=== PATIENT | female | born 1945 | race Caucasian/White ===

== ENCOUNTER → 2016-12-30 | Outpatient (CLI) | payer OTHER ==
[~2016-12-30] MED LIST: ASPI325T45 PO; ATOR10TA88 PO; CALC-20 PO; CITA10TA4 PO; HMLI SC; INSDGI SC; LIRA18IN SQ; MOXI1TAB7 PO; OMEP20TA PO; OXYC7.5T78 PO; PEDICHW50 PO
[2016-12-30 17:46] LABS: MANUAL MICROSCOPIC REQUIRED? NO; REVIEW REQ? NO; URINE APPEARANCE CLOUDY (CLEAR); URINE BILIRUBIN NEG (NEG); URINE COLOR YELLOW; URINE NITRITE POS (NEG); URINE SPECIFIC GRAVITY 1.011 (1.000-1.030); UROBILINOGEN NEG (NEG)
[2016-12-31 06:37] LABS: ESTIMATED AVERAGE GLUCOSE 157 mg/dl; HA1C FLAG Normal (Normal)
--- NOTE | 2017-01-07 11:01 | CODING QUERY MEDICAL NECESSITY ---
SUPPORTING DIAGNOSIS NEEDED Dr. Ceja, A supporting diagnosis is required for the test/procedure performed on this patient in order for us to be reimbursed by the patient's insurance. Please provide a supporting diagnosis for the following test/procedure listed below next to the test name along with your signature. *If there is no additional diagnosis for this patient that would support the following test/procedure please document that below next to the test/procedure. Test(s)/Procedure(s) that require a supporting diagnosis: * ([id number]) B12 VITAMIN LEVEL DIAGNOSIS: DATE OF SERVICE: 12/30/16 Provider Signature: Date: Thank you Jon Pugh [facility] Information Management Once completed, please kindly fax back to [phone] For questions please call [phone]
== END | disposition home or self-care (01) ==
LOC: C.LABBFT 12:15
PROVIDERS: ATTEND Internal Medicine
DX: R39.9 Unspecified symptoms and signs involving the genitourinary system (principal); E11.9 Type 2 diabetes mellitus without complications; M81.0 Age-related osteoporosis without current pathological fracture; Z98.890 Other specified postprocedural states

== ENCOUNTER → 2017-07-13 | Outpatient (CLI) | payer BC ==
[~2017-07-13] MED LIST changes: +ATOR10TA82 PO; -ATOR10TA88 PO
[2017-07-13 12:24] LABS: BASO % 0.2 %; BASO ABS # 0.02 K/uL (0-0.2); EOS % 0.9 %; EOS ABS # 0.09 K/uL (0-0.5); HEMATOCRIT 36.4 % (37-47); HEMOGLOBIN 11.5 g/dL (12.0-16.0); IG# 0.03 K/uL (0.00-0.02); LYMPH % 17.6 %; LYMPH ABS # 1.77 K/uL (1.2-3.4); MEAN CELL VOLUME 81.4 fL (80-100); MEAN CORPUSCULAR HEMOGLOBIN 25.7 pg (25-34); MEAN CORPUSCULAR HGB CONC 31.6 g/dl (32-36); MEAN PLATELET VOLUME 9.5 fL (7.4-10.4); MONO % 6.6 %; MONO ABS # 0.66 K/uL (0.11-0.59); NEUT % 74.4 %; NEUT ABS # 7.46 K/uL (1.4-6.5); PLATELET COUNT 375 K/uL (130-400); RED CELL DISTRIBUTION WIDTH CV 16.2 % (11.5-14.5); RED CELL DISTRIBUTION WIDTH SD 48.5 fL (36.4-46.3); WHITE BLOOD COUNT 10.03 K/uL (4.8-10.8)
[2017-07-13 13:00] LABS: BLOOD UREA NITROGEN 13 mg/dl (7-18); CREATININE 0.52 mg/dl (0.60-1.20); GLUCOSE 83 mg/dl (70-99)
[2017-07-13 13:01] LABS: ALBUMIN 3.6 gm/dl (3.4-5.0); ALKALINE PHOSPHATASE 63 U/L (45-117); AST/SGOT 18 U/L (15-37); CARBON DIOXIDE 28 mmol/L (21-32); SODIUM 138 mmol/L (136-145); TOTAL PROTEIN 7.1 gm/dl (6.4-8.2)
[2017-07-13 13:03] LABS: ALT/SGPT 23 U/L (12-78); CHOLESTEROL 144 mg/dl (0-200); LDL CHOLESTEROL CALCULATED 69 mg/dl
[2017-07-13 13:06] LABS: CALCIUM 8.9 mg/dl (8.5-10.1)
[2017-07-13 13:22] LABS: HEMOGLOBIN A1C 7.2 % (4.5-5.6)
[2017-07-13 14:21] LABS: CREATININE RANDOM URINE 91.9 mg/dl
== END | disposition home or self-care (01) ==
LOC: C.LABBFT 10:39
PROVIDERS: ATTEND Internal Medicine
DX: E11.9 Type 2 diabetes mellitus without complications (principal); R39.9 Unspecified symptoms and signs involving the genitourinary system; E78.5 Hyperlipidemia, unspecified

== ENCOUNTER 2020-05-14 06:58 | Inpatient (IN) ==
--- NOTE | 2020-05-14 07:50 | History & Physical Bridge Note ---
Date of Service May 14, 2020 History & Physical Bridge Note I have examined the patient, reviewed the History & Physical and in the interval since the performance of the History & Physical I have noted the following changes of clinical significance: no changes noted
--- NOTE | 2020-05-14 07:51 | Pre Anesthesia Assessment ---
Date of Service May 14, 2020 Pre Sedation Assessment Vital Signs Temp Pulse Resp BP Pulse Ox 05/14/20 07:15 36.7 C 60 20 140/68 98 Cardiovascular + regular rate Respiratory + respiratory effort normal Pre-Sedation Airway Assessment Smoking Status: Never smoker Hx Sleep Apnea: No Hx Difficult Intubation: No Short, Thick Neck: No Thyromental Distance: > or= 3.5 Finger Breadths Oral Cavity: + Dentures Mallampati Class: II ASA: ASA3 NPO Status Date of Last Intake of Fluids: 05/13/20 Time of Last Intake of Fluids: 20:00 Date of Last Intake of Solid Food: 05/13/20 Time of Last Intake of Solid Foods: 18:30 Procedure Planning Contraindications for Sedation: none Current Medications Reviewed: Yes Notes The planned sedation has been discussed with the patient. Informed Consent was obtained. I have identified the patient, determined the appropriateness of sedation and have assessed the patient immediately prior to the procedure. All medicine(s) and interventions are by my order.
[2020-05-14] MEDS ORDERED: HEPARIN (PORCINE) 1000 UNIT/ML 10 ML (CATH LAB USE ONLY) ONE (07:57)
[2020-05-14] MEDS ORDERED: niCARdipine HCL INJ 2.5 MG/ML 10 ML AMP ONE (07:57)
[2020-05-14] MEDS ORDERED: NITROGLYCERIN/D5W 100MCG/ML 20ML SYR ONE (07:58)
[2020-05-14] MEDS ORDERED: fentaNYL citrate 100 MCG/2 ML VIAL ONE (07:58)
[2020-05-14] MEDS ORDERED: MIDAZOLAM HCL 1 MG/ML 2ML VIAL ONE (07:58)
[2020-05-14] MEDS ORDERED: NITROGLYCERIN SL 0.4 MG/TAB TAB SL PRN (08:58)
[2020-05-14] MEDS ORDERED: ACETAMINOPHEN 325 MG TAB PO PRN (08:58)
[2020-05-14] MEDS ORDERED: SODIUM CHLORIDE 0.9% 1000ML 1,000 ML IV SCH (09:00)
--- NOTE | 2020-05-14 09:03 | Post Anesthesia Assessment ---
Date of Service May 14, 2020 Post Sedation Assessment Vital Signs Temp Pulse Resp BP Pulse Ox 05/14/20 07:15 36.7 C 60 20 140/68 98 Recovery Score Activity: Moves 4 extremities Respiration: Deep Breath/Cough Circulation: +/-20% PreAnes Value Consciousness: Fully Awake Oxygen Saturation: > 92% On Room Air Discharge Sedation Level of Care: Fast Track Phase II Post Sedation Plan On clinical assessment, the patient appears to have tolerated the sedation without complications. Patient is recovering as anticipated. Patient will continue to be monitored by nursing and may be discharged when sedation discharge criteria are met per below protocol. Upon Completions of procedure up to 15 minutes continue every 5 minute vital signs and the P.A.R. score; then discharge to a Phase I or Fast Track to Phase II per the following guidelines: * Discharge Patient to appropriate Phase II area if PAR is 8 or greater or return to pre- procedure baseline. The post - procedure orders will be as directed. * If PAR score is less than 8 or not return to pre-procedure baseline then patient will follow Phase I monitoring till PAR is reached for Phase II. The Phase I may be done in procedure room or may call to secure a Phase I area. * If naloxone or flumazenil are used for reversal, hold in Phase I for continued monitoring from when last reversal dose was given for a minimum of 60 minutes or longer pending the nurse and/or physician discretion of patient condition before discharge to Phase II. Please call the Sedation Physician to re-evaluate and complete post-note for discharge to Phase II area. Do NOT discharge from procedure sedation or Phase 1 until post- sedation evaluation note is complete by procedure /sedation MD Sedation Discharge Instructions to be given to the patient at discharge to home.
--- NOTE | 2020-05-14 09:03 | Cardiac Catheterization ---
[facility] Data: Heart Nurse Cardiac Status Clinical evaluation leading to the procedure CAD Presenation: Positive Stress Test Diagnostic Physicians Name: Caden Guerra MD Closure Device Recommendations: CABG Cardiac Cath Procedure Full Procedure Date May 14, 2020 Pre-Procedure Diagnosis Pre-Procedure Diagnosis: Positive Stress Test AUC Score AUC Score: 8 Post-Procedure Diagnosis Post-Procedure Diagnosis: Severe CAD Procedure(s) Performed Procedure(s) Performed: Coronary Angiography and Left Heart Cath Senior Catering Sales Manager Caden Guerra MD Campground Manager(s) none Estimated Blood Loss Estimated Blood Loss: 7cc Medication(s) Medication(s): Fentanyl, Lidocaine 1%, Nicardipine, Nitroglycerin and Versed Summary of Findings Procedure performed: Selective coronary angiography, left heart catheterization Staff marine consultant: Caden Guerra MD Indication: The patient is a 74-year-old woman with a history of peripheral vascular disease, diabetes, hyperlipidemia and hypertension who has been experiencing symptoms of exertional dyspnea and postprandial chest neck and arm pain. She had previously undergone stress echocardiography which revealed not only poor exercise tolerance but baseline inferior wall motion abnormalities and inducible wall motion abnormalities in the anterolateral marks. Procedure in detail The patient was informed of the risk benefits and alternatives to the intended procedure. She understood and wished to proceed. She was taken to the cardiac catheterization suite in a fasting state. Conscious sedation was administered per protocol and the patient was monitored electrocardiographically throughout today's procedure. The right radial area was prepped and draped in usual sterile fashion. This area was anesthetized using subcutaneous ministration of a lidocaine solution. Right radial artery was subsequently accessed using Seldinger technique and sheath was placed over guidewire at this site. The sheath was used to felt a passage of the cardiac catheters for selective coronary angiography and left heart catheterization. Images were obtained in multiple orthogonal views prior to removal of the catheter and sheath. Hemostasis was achieved at the access site using manual pressure. The patient tolerated seizure well. There were no immediate complications. Equipment used 5 [place] 4 Findings Coronary angiography Left main: The left main was relatively short but bifurcated normally into the left anterior descending and left circumflex arteries. There was some mild distal disease, but no obstructive lesions in the left main. Left anterior descending colon left anterior descending was heavily calcified in its proximal portion. There was approximately 60 to 70% stenosis at the ostium and a discrete 70% lesion prior to the takeoff of the first diagonal branch. There are luminal irregularities throughout the remainder of the vessel Left circumflex: Left circumflex artery was a large tortuous system. It had a discrete subtotal occlusion in its proximal portion. It effectively produced one large branching OM system with a discrete 70% stenosis in its proximal portion. Right coronary artery: The right coronary artery appeared to be chronically occluded. It did fill distally from left to right collaterals and reconstituted a small PDA branch. Impression: Three-vessel obstructive coronary disease including chronic total occlusion of the right coronary artery Left dominant coronary system Filling of small PDA via left to right collaterals Normal left ventricular filling pressures No evidence of aortic stenosis Hemodynamics Rest Ao:: 81/46 mmHg Final Ao: 108/48 mmHg LV: 106/0 mmHg left ventricular end-diastolic pressure of 2mmHg Recommendations Recommendations: CABG Specimens Specimens: None Radiation Exposure (mGy) 567 Contrast (mls) 3 0 Procedural Complication(s) None Disposition Heart Nurse Holding/Recovery I attest to the content of the Intraoperative Record and any orders documented therein. Any exceptions are noted below. [facility] Card Cath Procedure Codes Cardiac Catheterization Procedure 1: Cardiovascular Cath Procedures: 84705 Coronaries and LHC (+/-LV) Moderate Sedation Procedure 1: Sedation/Anesthesia: 08397 Mod Sedation by the same physician;Init15 Min Child Age 5 & Up PG Care Time/CCT Total # of Minutes Spent Total Time Spent with Patient: Total time spent is greater than 50% in coordination of care (as documented) at patient's floor/unit and/or counseling patient:
[2020-05-14] MEDS ORDERED: Heparin IV Adult Wt-Based Standard *NO* Bolus Protocol ONE (10:36)
[2020-05-14] MEDS: PANTOprazole 40 MG TAB PO SCH ×2 (11:23→20:04)
[2020-05-14] MEDS: ASPIRIN 81 MG ECTAB PO SCH (11:23)
[2020-05-14] MEDS: ROSUVASTATIN CALCIUM 20 MG TAB PO SCH (11:23)
[2020-05-14] MEDS ORDERED: GLUCOSE 10 TABS/TUBE PO PRN (11:32)
[2020-05-14] MEDS ORDERED: DEXTROSE 50% 50 ML SYRINGE IV PRN (11:32)
[2020-05-14] MEDS ORDERED: GLUCOSE 40% GEL 15 GM TUBE PO PRN (11:32)
[2020-05-14] MEDS ORDERED: GLUCAGON FOR INJ 1 MG VIAL SQ PRN (11:32)
[2020-05-14] MEDS ORDERED: CARBOHYDRATES FOR HYPOGLYCEMIA PO PRN (11:32)
[2020-05-14] MEDS ORDERED: PHARMACY GLYCEMIC MGMT CONSULT PRN (11:37)
--- NOTE | 2020-05-14 12:07 | Pharmacy Report ---
Pharmacy Glycemic Short Note 2 - Date of Service May 14, 2020 - Glycemic Short BSG Results (Last 24 hours): 05/14/20 11:38 POC Glucose 161 H OUTPATIENT ANTIDIABETIC REGIMEN: * Lantus 15 units SQ daily (last taken on 05/13) * Victoza 1.8 mg SQ qAM * A1c= 6% (03/07/20) ASSESSMENT: * Yenny is a 74 yo well controlled T2DM female s/p psychiatric cath * Current BSG of 161 mg/dL and ordered a diet * Will continue home dose of Lantus 15 units daily and start Novolog based on weight stress ~2. Titrate doses as needed. PLAN FOR INPATIENT GLYCEMIC CONTROL: * Basal insulin * Lantus 15 units SQ daily * Bolus insulin * NovoLog per scale ACHS or Q6hrs while NPO * Goal Range: Low 110 mg/dL - High 140 mg/dL * Correction Factor: 30 mg/dL/unit * Nutritional / Prandial insulin per carb ratio of 1 unit per 15 grams CHO consumed PLAN FOR DISCHARGE: * A1c = 6% * May continue home regimen on discharge as long as patient denies frequent hypoglycemia as an outpatient.
[2020-05-14] MEDS ORDERED: INSULIN GLARGINE SOLOSTAR 100 UNITS/ML 3 ML PEN SC SCH (12:30)
[2020-05-14] MEDS: INSULIN ASPART 100 UNITS/ML 3 ML PEN SC SCH ×3 (13:25→20:06)
[2020-05-14] MEDS: HEPARIN SODIUM/DEXTROSE 25,000 UNITS/500 ML BAG IV SCH (13:47)
[2020-05-14 14:45] LABS: Partial Thromboplastin Time 27.3 Seconds (21.0-31.0)
--- NOTE | 2020-05-14 14:57 | Electrocardiogram Report ---
Test Reason : Blood Pressure : / mmHG Vent. Rate : 080 BPM Atrial Rate : 080 BPM P-R Int : 168 ms QRS Dur : 082 ms QT Int : 402 ms P-R-T Axes : 053 -15 125 degrees QTc Int : 463 ms Normal sinus rhythm Abnormal ECG When compared with ECG of 06-FEB-2013 13:19, T wave inversion now evident in Lateral leads Confirmed by Caden Guerra ([id number]) on 05/14/2020 2:56:34 PM Referred By: Odalys Ortiz Confirmed By:Jean-Pierre Guerra
--- NOTE | 2020-05-14 16:24 | Ultrasound Report ---
US carotid doppler BI CLINICAL HISTORY: 74 years-old Female with pre-op. Preoperative screening exam. COMPARISON: None TECHNIQUE: Multiple real time sonographic images of the carotid bifurcations were obtained assessing bosch scale, color Doppler and spectral wave form appearance FINDINGS: RIGHT CAROTID: The peak systolic velocity measured within the right ICA is 50 cm/sec. The end diast olic velocity measured 16 cm/sec. The ICA to CCA ratio measured 0.77 which correlates with a stenosi s of 0-50%. Mild mixed plaque of the right carotid bulb and proximal right ICA. LEFT CAROTID: The peak systolic velocity measured within the left ICA is 60 cm/sec. The end diastol ic velocity measured 23 cm/sec. The ICA to CCA ratio measured 0.63 which correlates with a stenosis o f 0-50%. Mild to moderate mixed plaque of the left carotid bulb and left ICA. There is normal antegrade vertebral flow bilaterally. IMPRESSION: 1. Atherosclerotic plaque of the carotid bulbs and internal internal carotid arteries without hemody namically significant stenosis. 2. Normal antegrade vertebral flow bilaterally. ACT 112: Negative or not required by law. The above report was generated using voice recognition software. It may contain grammatical, syntax o r spelling errors. Electronically signed by: Osmin Cain M.D. 05/14/2020 4:23 PM
[2020-05-14] MEDS ORDERED: LORazepam 0.5 MG TAB PO PRN (17:48)
[2020-05-14] MEDS ORDERED: ZOLPIDEM TARTRATE 5 MG TAB PO PRN (17:48)
[2020-05-14] MEDS ORDERED: oxyCODONE HCL IR 5 MG TAB (IMMEDIATE RELEASE) PO PRN (17:48)
[2020-05-14] MEDS ORDERED: ALUMINUM/MAGNESIUM SUSP 30 ML UDC PO PRN (17:48)
[2020-05-14 20:53] LABS: Partial Thromboplastin Ratio 2.3
[2020-05-14 20:54] LABS: Partial Thromboplastin Time 64.3 Seconds (21.0-31.0)
[2020-05-15 06:35] LABS: Partial Thromboplastin Ratio 3.4
[2020-05-15 06:47] LABS: Partial Thromboplastin Time 95.1 Seconds (21.0-31.0)
[2020-05-15] MEDS: INSULIN ASPART 100 UNITS/ML 3 ML PEN SC SCH ×4 (07:48→21:00)
[2020-05-15] MEDS ORDERED: LIRAGLUTIDE 1.8 MG SQ SCH (09:00)
[2020-05-15] MEDS ORDERED: LANTUS PER UNIT CHARGE SQ SCH (09:00)
[2020-05-15] MEDS: PANTOprazole 40 MG TAB PO SCH ×2 (09:01→20:16)
[2020-05-15] MEDS: ROSUVASTATIN CALCIUM 20 MG TAB PO SCH (09:01)
[2020-05-15] MEDS: ASPIRIN 81 MG ECTAB PO SCH (09:01)
[2020-05-15] MEDS: HEPARIN SODIUM/DEXTROSE 25,000 UNITS/500 ML BAG IV SCH (10:09)
[2020-05-15] MEDS: ONDANSETRON INJ 2 MG/ML 2 ML VIAL IV PRN ×2 (10:10→19:36)
[2020-05-15] MEDS ORDERED: INSULIN GLARGINE SOLOSTAR 100 UNITS/ML 3 ML PEN SC SCH ×2 (11:30→12:00)
--- NOTE | 2020-05-15 13:41 | Pharmacy Report ---
Pharmacy Glycemic Short Note 2 - Date of Service May 15, 2020 - Glycemic Short BSG Results (Last 24 hours): 05/14/20 05/14/20 05/15/20 16:08 19:51 07:32 POC Glucose 102 H 118 H 88 05/15/20 11:27 POC Glucose 97 OUTPATIENT ANTIDIABETIC REGIMEN: * Lantus 15 units SQ daily (last taken on 05/13) * Victoza 1.8 mg SQ qAM * A1c= 6% (03/07/20) ASSESSMENT: 05/15: * Yenny received 17 units of insulin yesterday (15 units of basal and 2 units of bolus) * BSGs below goal today * will decrease Lantus ~30% * uncertain if novolog requires adjustment as she has required minimal usage at this point 05/14: * Yenny is a 74 yo well controlled T2DM female s/p [facility] cath * Current BSG of 161 mg/dL and ordered a diet * Will continue home dose of Lantus 15 units daily and start Novolog based on weight stress ~2. Titrate doses as needed. PLAN FOR INPATIENT GLYCEMIC CONTROL: * Basal insulin * Lantus 10 units SQ daily * Bolus insulin * NovoLog per scale ACHS or Q6hrs while NPO * Goal Range: Low 110 mg/dL - High 140 mg/dL * Correction Factor: 30 mg/dL/unit * Nutritional / Prandial insulin per carb ratio of 1 unit per 15 grams CHO consumed PLAN FOR DISCHARGE: * A1c = 6% * May continue home regimen on discharge as long as patient denies frequent hypoglycemia as an outpatient.
[2020-05-15 14:53] LABS: Partial Thromboplastin Ratio 2.1
[2020-05-15 15:10] LABS: Partial Thromboplastin Time 59.8 Seconds (21.0-31.0)
--- NOTE | 2020-05-15 16:57 | Cardiology Progress Note ---
Date of Service May 15, 2020 Assessment & Plan (1) Coronary artery disease: She had an abnormal outpatient stress test it was discovered yesterday to have significant three-vessel coronary disease. She appears to be a good candidate for surgical revascularization. We are awaiting transfer to a tertiary care facility. We will continue her on her current medications which include a daily aspirin and high-dose rosuvastatin. She has not had an acute coronary syndrome and has preserved LV systolic function. We will start her on low-dose beta-blockade given the baseline regional wall motion abnormalities suggestive of old infarct (2) Diabetes mellitus with insulin therapy: Admission and Anticipated Discharge Date Admission Date: May 14, 2020 Subjective The patient feels well. She has not had any symptoms of chest discomfort. She denies breathing difficulty. She has been ambulatory around her room without symptoms. No dizziness or lightheadedness. No pain at the radial access site. Review of Systems Review of Systems: Per HPI Physical Exam Physical Exam: She is alert and oriented x3. Mood affect appear normal. She answered all questions appropriately. HEENT: Sclerae are anicteric. Pupils are equal and reactive to light and accommodation. Extraocular movements were intact. Neuro: Cranial nerves intact Neck: Examination of the submandibular region did not reveal any significant lymphadenopathy. Carotids are palpable bilaterally and free of bruits on auscultation. There was no evidence of jugular venous distention. The thyroid was not enlarged. Lungs: Lungs are clear to auscultation bilaterally. There are no rales wheezes or rhonchi. She has normal respiratory effort without use of accessory muscles. There is normal pulmonary excursion. Cardiac: The rhythm was regular. S1 and S2 were normal. There are no murmurs on examination. The PMI was not markedly displaced on palpation. Abdomen: The abdomen was soft and nontender. Extremities: Patient has bilateral radial pulses that are equal in intensity. Good perfusion of the right hand. No significant ecchymosis. There is no evidence cyanosis or clubbing. There was no evidence of significant peripheral edema bilaterally. Skin: There are no rashes noted on examination today. Results & Data ([facility]) Vital Signs (Past 12 Hours) Vital Signs Temp Pulse Pulse Resp BP BP Pulse Ox 05/15/20 15:34 36.6 C 67 19 112/71 96 05/15/20 14:49 74 05/15/20 13:08 37.4 C 94 H 20 126/73 94 05/15/20 08:14 37.0 C 66 20 123/74 99 05/15/20 07:30 62 Diagnostic Findings Carotid duplex was performed yesterday. This did not reveal any evidence of obstructive carotid artery disease. Stress echocardiogram performed 05/01/2020 revealed inducible wall motion abnormalities in the setting of baseline inferior hypokinesis. She had mild LVH and mild mitral regurgitation. Preserved overall LV function. PG Care Time/CCT Total # of Minutes Spent Total Time Spent with Patient: Total time spent is greater than 50% in coordination of care (as documented) at patient's floor/unit and/or counseling patient: Coding Level of Care Code 89032 Subseq Obs Care Lvl 2 Diagnoses Coronary artery disease I25.10 Diabetes mellitus with insulin therapy E11.9; Z79.4
[2020-05-15] MEDS: METOPROLOL TARTRATE 25 MG TAB PO SCH (20:16)
--- NOTE | 2020-05-15 22:52 | Discharge Summary ---
Date of Service May 15, 2020 Admission HPI Per Admitting Provider The patient is a 74-year-old woman with a history of diabetes mellitus, hypertension and hyperlipidemia who was initially seen in the outpatient setting for symptoms of postprandial chest discomfort and progressive exertional dyspnea. For some time the patient has had difficulty with chest, throat, jaw and arm discomfort subsequent to eating. This may have been exacerbated by activity. If she eats small amounts of fairly bland food she does not generally have symptoms. More worrisome was her symptoms of exertional dyspnea which have been progressive over the past several weeks. As a result of the symptoms the patient underwent outpatient stress testing which was abnormal. Stress echocardiography revealed baseline hypokinesis of the basal inferior wall and what appeared to be inducible anterior ischemia. The patient was subsequently referred for coronary angiography. Principal Diagnosis Severe coronary artery disease Discharge Exam She is alert and oriented x3. Mood affect appear normal. She answered all questions appropriately. HEENT: Sclerae are anicteric. Pupils are equal and reactive to light and accommodation. Extraocular movements were intact. Neuro: Cranial nerves intact Neck: Examination of the submandibular region did not reveal any significant lymphadenopathy. Carotids are palpable bilaterally and free of bruits on auscultation. There was no evidence of jugular venous distention. The thyroid was not enlarged. Lungs: Lungs are clear to auscultation bilaterally. There are no rales wheezes or rhonchi. She has normal respiratory effort without use of accessory muscles. There is normal pulmonary excursion. Cardiac: The rhythm was regular. S1 and S2 were normal. Soft holosystolic murmur. The PMI was not markedly displaced on palpation. Abdomen: The abdomen was soft and nontender. Extremities: Patient has bilateral radial pulses that are equal in intensity. Good perfusion of the right hand. There is no evidence cyanosis or clubbing. There was no evidence of significant peripheral edema bilaterally. Skin: There are no rashes noted on examination today. Discharge Data Allergies Allergy/AdvReac Type Severity Reaction Status Date / Time alendronate sodium AdvReac Intermediate SEVERE Verified 04/15/20 11:25 HEADACHE risedronate sodium AdvReac Intermediate SEVERE Verified 04/15/20 11:25 HEADACHE metformin AdvReac Mild DIARRHEA Verified 04/15/20 11:25 Procedures Performed Operation Date: 05/14/20 08:00 Actual Procedures p Cath, Left with Cors and Vent - Clem Guerra MD s Cineradiography w/Routine Exam - Clem Guerra MD Ordered Studies 05/14/20 06:32 CL Cath Imgs for PACS use only Routine 05/14/20 15:13 US carotid doppler BI Routine Hospital Course (1) Coronary artery disease: On the day of admission the patient underwent coronary angiography which revealed severe coronary artery disease. This included a chronic total occlusion of the right coronary artery which was collateralized from the left coronary system. There was a near total occlusion of the proximal left circumflex artery and severe proximal left anterior descending stenosis as well as an additional stenosis in the proximal left anterior descending coronary artery. Left ventricular end-diastolic pressures were normal. Outpatient echocardiography had revealed preserved LV systolic function with mild mitral regurgitation. Based on the severity of her coronary disease and associated risk factors she was felt to be a good candidate for surgical revascularization. Carotid duplex was performed during this admission which did not reveal obstructive disease in the carotid arteries. Total Time Total Time Spent Total Time Spent (In Minutes): 15 Total Time Includes: Examination of the Patient, Discharge Planning and Medication Reconciliation Discharge Plan Discharge Items Patient Disposition: Transfer Acute Care Hospital Reason For Visit: ANGINA Discharge Diagnosis: Angina, severe CAD Condition on Discharge: Good Activity: Per Instructions section Activity Comment: Ad conor Lifting: No more than 5 pounds Non-emergency contact: Incident Commander Call non-emergency contact if: you have any medication questions Follow-up/Referrals: Clem Ceja MD [Primary Care Provider] - Diet: Carb Consistent or DM2 Addtl Attending Provider Instructions: none Pending Studies at Discharge: No Stand-Alone Forms: My [facility] Skilled Items Patient informed of condition?: Yes DNR: No Discharge Level of Care: Other Communicable Disease: No Discharge Prognosis: Stable Lines: Peripheral IV Urinary Catheter: No Medications and DC Order Prescriptions: New nitroglycerin [Nitrostat] 0.4 mg Tablet, Sublingual 0.4 mg sublingual UD PRN (Reason: chest pain) Qty: 1 RF: 0 metoprolol tartrate 25 mg Tablet 12.5 mg PO BID Qty: 1 RF: 0 Continued pantoprazole 40 mg tablet,delayed release (DR/EC) 40 mg PO BID Qty: 60 RF: 5 Victoza 3-Ben 0.6 mg/0.1 mL (18 mg/3 mL) pen injector 1.8 mg SQ QAM Qty: 9 RF: 4 rosuvastatin 20 mg tablet 20 mg PO DAILY Qty: 30 RF: 5 aspirin 325 mg tablet 325 mg PO QAM RF: 0 Lantus U-100 Insulin 100 unit/mL solution 15 unit SQ DAILY Qty: 10 RF: 11 ondansetron HCl 4 mg tablet 4 mg PO Q8H PRN (Reason: nausea and vomiting) Qty: 90 RF: 11 Discontinued (DME) OneTouch Ultra Blue Test Strip Strip See Dose Instructions .ROUTE .MEDSUPPLY Qty: 100 RF: 5 Flintstones Complete tablet,chewable 1 tab PO QPM RF: 0 cholecalciferol (vitamin D3) 2,000 unit capsule 2,000 units PO QAM RF: 0 zoledronic [id number]-[id number] 5 mg/100 mL piggyback 1 ea IV YEARLY RF: 0 Discharge Orders: Discharge Order (Routine); Ordered 05/15/20 Ordered By: Clem Guerra Admission Data Admit Date/Time: 05/14/20 08:59 Attending Provider: Clem Guerra Admit Provider: Clem Guerra Primary Care Provider: Clem Ceja Coding Level of Care Code 28435 OBS Care - Discharge Diagnoses Coronary artery disease I25.10
[2020-05-16 06:55] LABS: Hematocrit (blood only) 40.2 % (37-47); Hemoglobin 12.8 g/dL (12.0-16.0); Mean Corpuscular Hemoglobin 29.6 pg (25-34); Mean Corpuscular Hgb Conc 31.8 g/dL (32-36); Mean Corpuscular Volume 92.8 fL (80-100); Mean Platelet Volume 10.1 fL (7.4-10.4); Platelet Count 216 K/uL (130-400); RDW Coefficient of Variation 14.9 % (11.5-14.5); RDW Standard Deviation 50.9 fL (36.4-46.3); Red Blood Count 4.33 M/uL (4.2-5.4)
[2020-05-16 07:00] VITALS: BP 131/75; TEMP 97.9; O2SAT 98
[2020-05-16 07:24] LABS: Partial Thromboplastin Ratio 2.3
[2020-05-16 07:30] LABS: BUN Creatinine Ratio 20.8 (10-20); Calcium 8.3 mg/dl (8.5-10.1); Creatinine Clr Calc Pharmacy 53.3 ml/min; Est GFR (African American) 98.9; Est GFR (Non-African American) 85.4; Potassium 4.1 mmol/L (3.5-5.1)
[2020-05-16 07:33] LABS: Partial Thromboplastin Time 63.5 Seconds (21.0-31.0)
[2020-05-16] MEDS: INSULIN ASPART 100 UNITS/ML 3 ML PEN SC SCH (08:04)
[2020-05-16] MEDS: ASPIRIN 81 MG ECTAB PO SCH (08:04)
[2020-05-16] MEDS: PANTOprazole 40 MG TAB PO SCH (08:05)
[2020-05-16] MEDS: ROSUVASTATIN CALCIUM 20 MG TAB PO SCH (08:05)
[2020-05-16] MEDS: METOPROLOL TARTRATE 25 MG TAB PO SCH (08:05)
[2020-05-16 08:50] VITALS: PULSE 65
[2020-05-16] MEDS ORDERED: INSULIN GLARGINE SOLOSTAR 100 UNITS/ML 3 ML PEN SC SCH (09:00)
== END 2020-05-16 09:32 | disposition short-term general hospital (02) | DRG 287 ==
LOC: CC 06:58 → 2S 06:58 → OBSVTOIN 08:59 → 2S 05-15 12:06

== ENCOUNTER 2024-06-14 12:03 | Inpatient (IN) ==
--- NOTE | 2024-06-14 12:52 | Emergency Department Note ---
Impression & Plan Closed intertrochanteric fracture of left femur, Fall from standing, Acute UTI (urinary tract infection) ED Provider Note HISTORY OF PRESENT ILLNESS: Patient is a 79-year-old female presenting with left hip pain after fall. Patient does not remember how she fell. She reports she remembers being upright and then the next thing she knew she was on the ground. Reports that she had immediate pain and deformity to the left hip. She denies striking her head or loss of consciousness. She is on aspirin daily. She does not remember having any chest pain, shortness of breath or lightheadedness prior to the fall. Denies any chest pain or shortness of breath currently. Denies any abdominal pain. And route to the hospital, patient was given 45 mcg IV fentanyl and 4 mg IV zofran ROS: as above PHYSICAL EXAM: Constitutional: Patient appears in no acute distress. HENT: Head: Normocephalic and atraumatic. Eyes: EOMI, PERRL Mouth/Throat: Mucous membranes moist. Neck: Trachea midline. Neck supple. Cardiovascular: RRR, No murmurs, rubs or gallops. Intact distal pulses. Pulmonary/Chest: No respiratory distress. Breath sounds clear and equal bilaterally. No wheezes or rales. No chest wall tenderness to palpation. Abdominal: Abdomen soft, no tenderness, rebound or guarding. Musculoskeletal: - LLE: No open wounds. Left leg is shortened and externally rotated as compared to the right. Sensation intact to light touch about the nerve distributions of the leg. Patient is able to wiggle toes and dorsiflex and plantarflex the ankle. No reproducible tenderness to palpation on the proximal femur. Patient does have pain with internal and external rotation of the femur. No laxity to palpation of the pelvis. Skin: Warm and dry. No rash, erythema, pallor or cyanosis Psychiatric: Appropriate mood and affect for situation. Neurological: Alert and keenly responsive. CN II-XII grossly intact MDM: - Vitals signs showed hypertension - History obtained via patient. History as above. - Chronic conditions affecting care: GERD; HTN; HLD; CAD; DM-2 - Differential diagnoses include, but are not limited to: pelvic fracture; femur fracture; femur dislocation; contusion; intracranial hemorrhage; syncope; ACS; dysrhythmia - Order placed for continuous cardiac monitoring. At this time, monitor showed rate of 72 bpm with normal sinus rhythm, per my interpretation. - External medical records reviewed. Medicare visit note dated 11/09/2023 was reviewed. Patient was seen for routine follow-up in clinic. She follows in their clinic for her lower extremity edema, hypertension and esophageal dysphagia. - EKG interpreted by myself showed normal sinus rhythm. Rate 63 bpm. QT 432. No acute ischemic changes. Now noted to have a right bundle branch block. However, last EKG to compare to is in April 2020. - Laboratory workup interpreted by myself showed normal WBC; normal PT/INR; stable electrolytes; normal troponin - UA showed evidence of infection. Given 2g IV rocephin - Patient initially given 50 mcg IV fentanyl on arrival. However, after movements for the x-ray imaging, the patient reports the pain was worse. Was given 50 mcg IV fentanyl and 1 g IV Tylenol for pain management. She did start to feel nauseous and was given 4 mg IV Zofran. - CT head wo contrast negative for acute pathology - CT cervical spine wo contrast negative for acute injury - Xray pelvis with left hip views showed left intertrochanteric fracture, per my interpretation - CXR negative for pneumonia, per my interpretation - Discussed case with orthopedic surgeon on-call, Dr. Deleon, at 13:52. He plans to come and evaluate the patient. He reports that the patient will likely go for surgery later tonight if medically cleared by the inpatient team. - Discussion was had with egg caser about patient's case and need for admission - Hospitalist, Dr. Shelton, consulted for admission - Patient admitted to Health systemist service for further evaluation and management. ASSESSMENT AND PLAN: Diagnosis: Left intertrochanteric femur fracture; fall from standing; acute UTI Plan: admit Past Med/Surg History Problem List (Updated 06/14/24 @ 16:49 by Jon Vale MD) Encounter for pre-operative examination Fall from standing (Acute) Closed intertrochanteric fracture of left femur (Acute) Closed left hip fracture Lower extremity edema Esophageal dysphagia Cervicalgia Coronary artery disease coronary bypass graft 05/20/2020 [facility]: Smith to LAD, saphenous vein to OM1 and SVG to RCA Acquired dysphasia (Acute) Anemia (Acute) Depression (Acute) Dysphagia (Acute) History of gastric bypass (Acute) Prolapse of vaginal marks (Acute) Tinnitus (Acute) Status post total replacement of hip (Acute 11/06/12) Urinary incontinence (Acute) Vitamin D deficiency (Acute) History of adenomatous polyp of colon Peripheral arterial disease (Acute) Osteoporosis (Acute) Mitral regurgitation (Acute) Lumbar canal stenosis (Acute) Hyperlipidemia (Acute) GERD (gastroesophageal reflux disease) (Acute) Diabetic retinopathy (Acute) Carotid artery plaque Medical History (Updated 06/14/24 @ 16:49 by Jon Vale MD) Bile acid esophageal reflux Hypertension 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" CAD (coronary artery disease) CABG 2020 Degenerative disc disease Raynaud's disease Diabetes mellitus, type 2 Varicose veins of both lower extremities hx of superficial blood clots Hearing deficit Surgical History History of facelift History of cardiac catheterization 04/2020 -- [facility] --> CABG History of four vessel coronary artery bypass graft 05/2020>cecilia [facility] ? "can't remember" History of needle biopsy on breast--benign Status post left foot surgery to remove a needle History of open reduction and internal fixation (ORIF) procedure left arm--hardware in place History of cholecystectomy History of abdominoplasty History of colonoscopy with polypectomy History of esophagogastroduodenoscopy (EGD) History of varicose vein ligation bilt legs History of Emerald-en-Y gastric bypass History of tooth extraction all teeth Status post bilateral LASIK surgery History of bilateral cataract extraction S/P vaginal hysterectomy S/P tonsillectomy Status post right hip replacement x7--last was 11/06/2012 Family History Mother Myocardial infarction Stroke Family history of diabetes mellitus Diabetes Sister Myocardial infarction Family history of diabetes mellitus Diabetes Coronary heart disease Father Myocardial infarction Family history of diabetes mellitus Diabetes Brother Lung cancer Family history of diabetes mellitus Coronary heart disease Son Family history of diabetes mellitus Daughter Family history of diabetes mellitus Grandfather (Maternal) Family history of diabetes mellitus Grandmother (Paternal) Family history of diabetes mellitus Family hx of colon cancer Grandmother (Maternal) Family history of diabetes mellitus Other Colorectal cancer No family history of adverse response to anesthesia Denies family history of Ovarian cancer Prostate cancer Breast cancer Social History (Updated 11/10/23 @ 09:09 by GRACY Benitez) Smoking Status: Never smoker Second Hand Exposure: No; Do You Dip or Chew Tobacco: No; Hx Alcohol Use: No Preferred Language: Indonesian Communication Ability: Effective Visual Impairment: No Limitations Hearing Ability: Normal 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 Beliefs That Will Affect Care: None marital status: Current Living Situation: Family Current Living Situation Comment: with daughter current occupational status: retired Feels Safe at Home: Yes Childhood Exposure to Second-Hand Smoke: No Diet: diabetic caffeine: Yes during the past year weight has: remained stable Dental Care, Regularly: No Physical Activity Frequency: 3-4 Times per Week Seatbelt Use: always Sunscreen Use: No Assistive Devices: Cane, Denture - Upper, Denture - Lower and Glasses Allergies Allergies Allergy/AdvReac Type Severity Reaction Status Date / Time alendronate sodium AdvReac Intermediate SEVERE Verified 11/10/23 09:02 HEADACHE risedronate sodium AdvReac Intermediate SEVERE Verified 11/10/23 09:02 HEADACHE metformin AdvReac Mild DIARRHEA Verified 11/10/23 09:02 Home Meds Home Medications Medication Instructions Recorded Confirmed acetaminophen 500 mg capsule 1,000 mg PO Q6H PRN Pain 05/28/20 06/14/24 aspirin 81 mg tablet,delayed 81 mg PO QPM 05/28/20 06/14/24 release (Adult Low Dose Aspirin) multivitamin with minerals 1 tab PO QAM 05/28/20 06/14/24 metoclopramide HCl 5 mg tablet 5 mg PO UD 06/14/24 06/14/24 nystatin 100,000 unit/gram topical 1 applic topical BID PRN Other 06/14/24 06/14/24 powder semaglutide 1 mg/dose (4 mg/3 mL) 1 mg subcut WK 06/14/24 06/14/24 subcutaneous pen injector Previous Rx's Medication Instructions Recorded famotidine 20 mg tablet 20 mg PO BID #60 tabs 06/23/23 zoledronic acid 5 mg/100 mL in See Rx Instructions IV ONCE #100 mL 07/29/23 mannitol 5 %-water intravenous piggybck (Reclast) oxycodone-acetaminophen 5 mg-325 1 tab PO Q6H PRN pain 3 days #24 08/12/23 mg tablet tabs empagliflozin 25 mg tablet 25 mg PO QAM #90 tabs 08/31/23 metoprolol succinate 25 mg 25 mg PO QAM #30 tabs 10/18/23 tablet,extended release 24 hr blood sugar diagnostic (OneTouch #100 ea 11/01/23 Ultra Test strips) nitroglycerin 0.4 mg sublingual 0.4 mg sublingual UD PRN chest 11/01/23 tablet (Nitrostat) pain #25 tabs losartan 25 mg tablet 25 mg PO DAILY #90 tabs 11/11/23 rosuvastatin 20 mg tablet 20 mg PO QAM #90 tabs 12/05/23 dexlansoprazole 60 mg 60 mg PO QAM #90 caps 02/03/24 capsule,biphase delayed release (Dexilant) ondansetron HCl 4 mg tablet 4 mg PO Q8H PRN nausea and 02/03/24 vomiting #90 tabs furosemide 20 mg tablet 20 mg PO DAILY #30 tabs 05/08/24 Results & Data (ED) Vital Signs Vital Signs - 24 hr 06/14/24 12:16 06/14/24 12:16 06/14/24 12:49 Temperature 36.8 C Temperature Source Oral Pulse Rate 65 65 Pulse Rate [Apical] Respiratory Rate 18 Respiratory Effort / Characteristics Non-Labored Non-Labored Respiratory Depth Normal Normal Blood Pressure 188/86 H Blood Pressure [Right Arm] Blood Pressure Mean 120 Blood Pressure Mean [Right Arm] Pulse Oximetry 96 Oxygen Delivery Method Room Air Oxygen Flow Rate Sepsis Recent Fever Within 48 Hours No Sepsis New/Unexplained Change in Mental Status No Sepsis Action Taken by Nursing No Action Required 06/14/24 14:00 06/14/24 14:20 06/14/24 14:20 Temperature 36.8 C Temperature Source Pulse Rate 72 Pulse Rate [Apical] 77 Respiratory Rate 18 18 Respiratory Effort / Characteristics Respiratory Depth Normal Blood Pressure 150/77 H Blood Pressure [Right Arm] 150/77 H Blood Pressure Mean Blood Pressure Mean [Right Arm] 101 Pulse Oximetry 97 97 Oxygen Delivery Method Room Air Room Air Room Air Oxygen Flow Rate 0 Sepsis Recent Fever Within 48 Hours Sepsis New/Unexplained Change in Mental Status Sepsis Action Taken by Nursing 06/14/24 14:20 Temperature Temperature Source Pulse Rate Pulse Rate [Apical] Respiratory Rate Respiratory Effort / Characteristics Respiratory Depth Blood Pressure Blood Pressure [Right Arm] Blood Pressure Mean Blood Pressure Mean [Right Arm] Pulse Oximetry Oxygen Delivery Method Room Air Oxygen Flow Rate Sepsis Recent Fever Within 48 Hours Sepsis New/Unexplained Change in Mental Status Sepsis Action Taken by Nursing Laboratory Data 06/14/24 12:21 06/14/24 14:12 Lab Results 06/14/24 06/14/24 06/14/24 Range/Units 12:21 12:23 14:12 WBC 6.86 (4.8-10.8) K/ul RBC 4.48 (4.20-5.40) M/uL Hgb 14.7 (12.0-16.0) g/dl Hct 44.9 (37.0-47.0) % MCV 100.2 H (80.0-100.0) fL MCH 32.8 (25.0-34.0) pg MCHC 32.7 (32.0-36.0) g/dL RDW Std Deviation 47.8 H (36.4-46.3) fL RDW Coeff of Charlee 12.8 (11.5-14.5) % Plt Count 211 (130-400) K/uL MPV 10.5 (9.4-12.4) fL Immature Gran % (Auto) 0.4 % Neut % (Auto) 78.2 % Lymph % (Auto) 13.7 % Davison % (Auto) 6.6 % Eos % (Auto) 0.7 % Baso % (Auto) 0.4 % Neut # (Auto) 5.36 (1.40-6.50) K/uL Lymph # (Auto) 0.94 L (1.20-3.40) K/uL Davison # (Auto) 0.45 (0.11-0.59) K/uL Eos # (Auto) 0.05 (0.00-0.50) K/uL Baso # (Auto) 0.03 (0.00-0.20) K/uL Immature Gran # (Auto) 0.03 (0.01-0.20) K/uL PT Cancelled 10.5 INR Cancelled 1.0 APTT Cancelled 27 PTT Ratio Cancelled 1.0 Sodium Cancelled 140 Potassium Cancelled 3.9 Chloride Cancelled 109 H Carbon Dioxide Cancelled 28 Anion Gap Cancelled 3 BUN Cancelled 11 Creatinine Cancelled 0.33 L Est Cr Clr Drug Dosing Cancelled 93.1 eGFR Cancelled 105.39 BUN/Creatinine Ratio Cancelled 33.3 H Glucose Cancelled 114 H Calcium Cancelled 8.6 Total Bilirubin Cancelled 0.5 AST Cancelled 19 ALT Cancelled 7 Alkaline Phosphatase Cancelled 61 Troponin I High Sens 4.5 (0-14) pg/ml Total Protein Cancelled 5.8 L Albumin Cancelled 3.5 Globulin Cancelled 2.3 L Albumin/Globulin Ratio Cancelled 1.5 Urine Color Yellow Urine Appearance Cloudy A (Clear) Urine pH 5.5 (4.5-7.5) Ur Specific Jeffers 1.029 (1.000-1.030) Urine Protein Negative (Negative) Urine Glucose (UA) 3+ H (Negative) Urine Ketones Negative (Negative) Urine Blood 2+ H (Negative) Urine Nitrite Negative (Negative) Urine Bilirubin Negative (Negative) Urine Urobilinogen Negative (Negative) Ur Leukocyte Esterase Trace H (Negative) Urine WBC (Auto) >50 H (0-5) /hpf Urine RBC (Auto) >20 H (0-2) /hpf U Hyaline Cast (Auto) 0-2 (0-2) /lpf U Epithel Cells (Auto) 0-2 (0-2) /hpf Urine Bacteria (Auto) 4+ H (None Seen) Administered Medications Discontinued Medications Fentanyl Citrate (Fentanyl Citrate Pf 100 Mcg/2 Ml Vial) 50 mcg IV NOW STA Stop: 06/14/24 12:50 Last Admin: 06/14/24 13:03 Dose: 50 mcg Documented By: MYESHA Fentanyl Citrate (Fentanyl Citrate Pf 100 Mcg/2 Ml Vial) 50 mcg IV NOW STA Stop: 06/14/24 15:00 Last Admin: 06/14/24 15:04 Dose: 50 mcg Documented By: SYLVIE Ceftriaxone Sodium (Rocephin) 2,000 mg in 50 mls @ 100 mls/hr IV NOW STA Stop: 06/14/24 15:13 Last Infusion: 06/14/24 16:15 Dose: Infused Documented By: Admin: 06/14/24 15:04 Dose: 100 mls/hr Documented By: SYLVIE Acetaminophen (Ofirmev) 1,000 mg in 100 mls @ 400 mls/hr IV NOW STA Stop: 06/14/24 15:13 Last Infusion: 06/14/24 15:30 Dose: Infused Documented By: Admin: 06/14/24 15:04 Dose: 400 mls/hr Documented By: SYLVIE Ondansetron HCl (Ondansetron Inj 2 Mg/Ml 2 Ml Vial) 4 mg IV NOW STA Stop: 06/14/24 16:17 Last Admin: 06/14/24 16:33 Dose: 4 mg Documented By: SYLVIE Imaging Data Radiologist's Impression: Pelvis CT 06/14/24 00:00 Clinical history: Left hip pain after fall Technique: Axial computed tomography images were obtained of the pelvis without intravenous contrast Findings: There is an acute comminuted intertrochanteric fracture of the left femoral neck with mild displacement of fracture fragments. There is an old healed fracture of the left inferior pubic ramus. There is also suspected old healed fracture of the left superior pubic ramus. No focal osseous lesion is seen. There is a right hip total arthroplasty in expected position. 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 There are mild degenerative changes of the pubic symphysis. The sacroiliac joints appear unremarkable. There is no sign of osteomyelitis. There is scoliosis and degenerative disc disease of the visualized lumbar spine. The visualized musculature appears unremarkable. No soft tissue mass or fluid collection is seen The iliac arteries are of normal caliber. No adenopathy is noted. The visualized bowel appears unremarkable. No free intraperitoneal fluid or air is seen. There is air within the urinary bladder that could be due to recent catheterization Impression: 1. Acute left femoral neck fracture 2. Old left pubic rami fractures 3. Right hip replacement Electronically signed by Jose Whitehead 06-14-2024 4:10 PM Hip/Pelvis X-Ray 06/14/24 12:49 XR hip LT 2V w pelvis CLINICAL HISTORY: L hip pain s/p fall COMPARISON: 01/12/2013 FINDINGS: There is an intertrochanteric fracture of the proximal left femur. No additional acute injuries are identified. Patient is status post right total hip replacement. IMPRESSION: Intertrochanteric fracture proximal left femur. ACT 112: Negative or not required by law. Electronically signed by: Nicolasa Mathur M.D. 06/14/2024 1:56 PM Chest X-Ray 06/14/24 13:49 XR chest 1V not portable CLINICAL HISTORY: fracture preop COMPARISON STUDY: 04/15/2020 FINDINGS: Single view chest demonstrates no acute cardiopulmonary process. Evidence of prior coronary artery bypass surgery is present. Calcified granulomas are present in the lung maher and hilum. Calcified lymph node in the right axilla. The lung maher are clear. There is no pleural effusion or atelectasis. Heart size and pulmonary vascularity are unremarkable. Severe degenerative changes are present in the right shoulder. Multiple screws are present in the proximal left humerus. IMPRESSION: No acute process. ACT 112: Negative or not required by law. Electronically signed by: Nicolasa Mathur M.D. 06/14/2024 2:[address] 06/14/24 13:54 Clinical History: Fall Technique: Axial computed tomography images were obtained of the brain without intravenous contrast. Findings: There is diffuse cerebral atrophy, within expected limits for the patient's age. Areas of decreased attenuation are seen within the periventricular white matter, likely representing chronic small vessel ischemic disease. There is no definite sign of acute or old infarction. No intracranial hemorrhage is evident. No definite mass lesion is seen on this noncontrast examination. There is no midline shift or other form of herniation. No hydrocephalus is seen. No fracture is identified. The orbits and the visualized paranasal sinuses appear unremarkable. The mastoid air cells appear clear. Impression: 1. Cerebral atrophy and chronic small vessel ischemic disease 2. Otherwise unremarkable noncontrast CT of the brain Electronically signed by Jose Whitehead 06-14-2024 4:[address] 06/14/24 13:55 CT CERVICAL THORACIC LUMBAR SPINE WITHOUT CONTRAST: HISTORY: PAIN TECHNIQUE: Noncontrast CT examination of the cervical thoracic lumbar spine is performed. Coronal and sagittal reformats were created. COMPARISON: FINDINGS: CERVICAL SPINE: There is no significant vertebral body height loss. No acute traumatic fracture identified. There is no significant spondylolisthesis. Multilevel degenerative changes characterized by disc osteophyte complex, bilateral facet and uncovertebral hypertrophy resulting and neural foraminal narrowing at multiple levels, worst at mid to lower spine. Visualized soft tissues of neck are unremarkable. Visualized lung apex is clear. Calcified body measuring 1.9 cm with surrounding fluid in the caudal aspect of the right joint capsule. Severe degenerative changes of the right shoulder. IMPRESSION: No acute traumatic fracture of the cervical spine. Multilevel degenerative changes as above Calcified body measuring 1.9 cm with surrounding fluid in the caudal aspect of the right joint capsule. This could represent a free body. Severe degenerative changes of the right shoulder. Electronically signed by Javad Gamino 06-14-2024 4:21 PM Femur X-Ray 06/14/24 15:02 XR femur LT 2V routine CLINICAL HISTORY: eval entire bone COMPARISON: X-ray earlier today FINDINGS: There is improved alignment at the intertrochanteric proximal femur fracture. No other fracture or dislocation seen at the left femur. IMPRESSION: Improved alignment. ACT 112: Negative or not required by law. Electronically signed by: Juan Jose Ga M.D. 06/14/2024 3:41 PM Discharge Plan Visit Data Chief Complaint: Trauma Stated Complaint: FALL ED Provider: Farzana Grimm Discharge Problem: Closed intertrochanteric fracture of left femur, Fall from standing, Acute UTI (urinary tract infection) Forms Stand Alone Forms: [facility] Prescriptions Prescriptions: No Action aspirin [Adult Low Dose Aspirin] 81 mg tablet,delayed release (DR/EC) 81 mg PO QPM acetaminophen 500 mg capsule 1,000 mg PO Q6H PRN (Reason: Pain) multivitamin with minerals Tablet 1 tab PO QAM famotidine 20 mg tablet 20 mg PO BID Qty: 60 11RF zoledronic [id number] [Reclast] 5 mg/100 mL piggyback See Rx Instructions IV ONCE Qty: 100 0RF Rx Instructions: 5 mg intravenously once; empagliflozin 25 mg tablet 25 mg PO QAM Qty: 90 3RF metoprolol succinate 25 mg tablet extended release 24 hr 25 mg PO QAM Qty: 30 11RF Hold Instructions: Orthostatic symptoms (DME) OneTouch Ultra Test Strip See Rx Instructions .Route Qty: 100 3RF Rx Instructions: Test 4x daily nitroglycerin [Nitrostat] 0.4 mg tablet, sublingual 0.4 mg sublingual UD PRN (Reason: chest pain) Qty: 25 0RF Hold Instructions: Patient states this was prescribed for prior to her surgery losartan 25 mg tablet 25 mg PO DAILY Qty: 90 3RF Hold Instructions: Orthostatic symptoms rosuvastatin 20 mg tablet 20 mg PO QAM Qty: 90 3RF dexlansoprazole [Dexilant] 60 mg capsule,biphase delayed releas 60 mg PO QAM Qty: 90 3RF ondansetron HCl 4 mg tablet 4 mg PO Q8H PRN (Reason: nausea and vomiting) Qty: 90 11RF furosemide 20 mg tablet 20 mg PO DAILY Qty: 30 5RF oxycodone-acetaminophen 5-325 mg tablet 1 tab PO Q6H PRN (Reason: pain) 3 Days Qty: 24 0RF nystatin 100,000 unit/gram powder 1 applic topical BID PRN (Reason: Other) semaglutide 1 mg/dose (4 mg/3 mL) pen injector 1 mg subcut WK Rx Instructions: last took week ago 1 mg subcutaneously once weekly; metoclopramide HCl 5 mg tablet 5 mg PO UD Rx Instructions: 5 mg orally before meals and at bedtime; Referrals Referrals: Caden Ceja MD [Primary Care Provider] -
[2024-06-14] MEDS: fentaNYL citrate PF 100 MCG/2 ML VIAL IV STA ×2 (13:03→15:04)
[2024-06-14 13:21] LABS: Basophils # (auto) 0.03 K/uL (0.00-0.20); Basophils % (auto) 0.4 %; Eosinophils # (auto) 0.05 K/uL (0.00-0.50); Eosinophils % (auto) 0.7 %; Hematocrit (blood only) 44.9 % (37.0-47.0); Hemoglobin 14.7 g/dl (12.0-16.0); Immature Granulocytes # (auto) 0.03 K/uL (0.01-0.20); Immature Granulocytes % (auto) 0.4 %; Lymphocytes # (auto) 0.94 K/uL (1.20-3.40); Lymphocytes % (auto) 13.7 %; Mean Corpuscular Hemoglobin 32.8 pg (25.0-34.0); Mean Corpuscular Hgb Conc 32.7 g/dL (32.0-36.0); Mean Corpuscular Volume 100.2 fL (80.0-100.0); Mean Platelet Volume 10.5 fL (9.4-12.4); Monocytes # (auto) 0.45 K/uL (0.11-0.59); Monocytes % (auto) 6.6 %; Neutrophils # (auto) 5.36 K/uL (1.40-6.50); Neutrophils % (auto) 78.2 %; Platelet Count 211 K/uL (130-400); RDW Coefficient of Variation 12.8 % (11.5-14.5); RDW Standard Deviation 47.8 fL (36.4-46.3); Red Blood Count 4.48 M/uL (4.20-5.40); White Blood Count 6.86 K/ul (4.8-10.8)
[2024-06-14 13:35] LABS: Appearance Urine Cloudy (Clear); Bacteria Urine Automated 4+ (None Seen); Bilirubin Urine Negative (Negative); Blood Urine 2+ (Negative); Cast Urine Automated 0-2 /lpf (0-2); Color Urine Yellow; Epithelial Cell Urine Auto 0-2 /hpf (0-2); Glucose Urine UA 3+ (Negative); Ketones Urine Negative (Negative); Leukocyte Esterase Urine Trace (Negative); Nitrite Urine Negative (Negative); Protein Urine Negative (Negative); RBC Urine Automated >20 /hpf (0-2); Specific Gravity Urine 1.029 (1.000-1.030); Urobilinogen Urine Negative (Negative); WBC Urine Automated >50 /hpf (0-5); pH Urine 5.5 (4.5-7.5)
--- NOTE | 2024-06-14 13:57 | XRay Report ---
XR hip LT 2V w pelvis CLINICAL HISTORY: L hip pain s/p fall COMPARISON: 01/12/2013 FINDINGS: There is an intertrochanteric fracture of the proximal left femur. No additional acute inj uries are identified. Patient is status post right total hip replacement. IMPRESSION: Intertrochanteric fracture proximal left femur. ACT 112: Negative or not required by law. Electronically signed by: Nicolasa Mathur M.D. 06/14/2024 1:56 PM
--- NOTE | 2024-06-14 14:23 | XRay Report ---
XR chest 1V not portable CLINICAL HISTORY: fracture preop COMPARISON STUDY: 04/15/2020 FINDINGS: Single view chest demonstrates no acute cardiopulmonary process. Evidence of prior coronary artery bypass surgery is present. Calcified granulomas are present in the lung maher and hilum. Pierre cified lymph node in the right axilla. The lung maher are clear. There is no pleural effusion or atelectasis. Heart size and pulmonary vasc ularity are unremarkable. Severe degenerative changes are present in the right shoulder. Multiple scr ews are present in the proximal left humerus. IMPRESSION: No acute process. ACT 112: Negative or not required by law. Electronically signed by: Nicolasa Mathur M.D. 06/14/2024 2:21 PM
[2024-06-14 14:50] LABS: Albumin Globulin Ratio 1.5 (0.9-2); Albumin Level 3.5 gm/dl (3.4-5.0); BUN Creatinine Ratio 33.3 (10-20); Bilirubin,Total 0.5 mg/dl (0.2-1.0); Calcium 8.6 mg/dl (8.6-10.3); Creatinine Clr Calc Pharmacy 93.1 ml/min; Globulin 2.3 gm/dl (2.5-4.0); Potassium 3.9 mmol/L (3.5-5.1); Total Protein 5.8 gm/dl (6.0-8.3)
--- NOTE | 2024-06-14 14:58 | Electrocardiogram Report ---
Test Reason : Blood Pressure : */* mmHG Vent. Rate : 63 BPM Atrial Rate : 63 BPM P-R Int : 158 ms QRS Dur : 108 ms QT Int : 432 ms P-R-T Axes : 1 -11 12 degrees QTcB Int : 442 ms Normal sinus rhythm with sinus arrhythmia Low voltage QRS Right bundle branch block Inferior infarct , age undetermined Abnormal ECG When compared with ECG of 14-May-2020 10:22, Right bundle branch block is now Present Confirmed by Dom Deleon ([id number]) on 06/14/2024 2:56:55 PM Referred By: REFERRED SELF Confirmed By: Dom Deleon
[2024-06-14] MEDS: ACETAMINOPHEN 1,000 MG/100 ML VIAL IV STA (15:04)
[2024-06-14] MEDS: cefTRIAXone SODIUM 2,000 MG/50 ML BAG IV STA (15:04)
--- NOTE | 2024-06-14 15:04 | Orthopedic Consultation ---
Date of Consultation June 14, 2024 Assessment & Plan (1) Closed left hip fracture: (2) Osteoporosis: (3) Vitamin D deficiency: (4) Coronary artery disease: (5) History of gastric bypass: (6) History of adenomatous polyp of colon: (7) Diabetic retinopathy: (8) Carotid artery plaque: (9) Hypertension: (10) Mitral regurgitation: Plan There is a 79-year-old female who presents to the emergency department today after a fall wherein she sustained a closed, traumatic, displaced left basicervical femoral neck fracture. I do long discussion with the patient, her daughter, and her who joined her at bedside with regards to this injury. We discussed in great detail the pathoanatomy, pathophysiology, treatment options. I expressed to them that this fracture represents a fracture of immobility and due to its significant displacement, as well as sequelae for nonoperative care, my recommendation is for operative management. I expressed to them that operative management for hip fractures is usually required so that the patient can have appropriate pain c ontrol, mobility, and decrease the risks of complications of immobility. I expressed to them that the risks of surgery include but are not limited to loss of life/limb, DVT, incomplete relief of pain, hardware prominence, hardware complication, hardware failure, iatrogenic injury to bone/nerve/tendon/vessel, nonunion, malunion, need for additional surgery, infection. I expressed to them that the alternatives to surgical management would include nonoperative care. If the patient were to pursue nonoperative care, I do believe the risks associated with it would be higher risk of decubitus ulcers, pneumonia, DVT. The benefits of surgical management would be pain control, sooner mobility. After thorough discussion of the risks and benefits of surgery and nonoperative care, the patient and her family through a shared decision-making model have elected to proceed with operative management. I did discuss with the patient and her family that hip fractures often times are a harbinger of worse things to come as often times they occur in patients nearing the end of their lives. I explained that when fractures such as these occur in patients after low-energy mechanisms - such as this patient's - it signifies a declining functional state. I expressed to them that in general, after a hip fracture, even with surgical management, patients often times decrease 1 level of functional mobility. The patient is ordinarily a community ambulator with a cane, so I expressed to them that she may have to ambulate with the use of a walker more regularly following this injury. They expressed understanding to all of this. This patient's fracture does appear to be a basicervical variant, as such my recommendation would be for cephalomedullary nailing. The patient should be seen and cleared by the medical team prior to operative intervention and we will proceed to the OR pending or availability and medical clearance. History of Present Illness Reason for Consultation: Left hip pain Requesting Physician: Dr. Grimm History of Present Illness This is a 79-year-old female who presents the emergency department today after she sustained a fall this morning. Patient notes that she does not remember the fall, but she does note that after her fall, she had fairly significant pain in her left hip. She denies any additional areas of pain besides her left hip. Her past orthopedic history is significant for right total hip arthroplasty in 2012 as well as left arm fracture. Her past medical history significant for history of CABG. She currently takes daily aspirin. Patient denies any current chest pain or shortness of breath. She denies any headache. She denies any numbness or tingling in her lower extremity. She denies any pain in her upper extremities. Allergies Allergy/AdvReac Type Severity Reaction Status Date / Time alendronate sodium AdvReac Intermediate SEVERE Verified 11/10/23 09:02 HEADACHE risedronate sodium AdvReac Intermediate SEVERE Verified 11/10/23 09:02 HEADACHE metformin AdvReac Mild DIARRHEA Verified 11/10/23 09:02 Home Medications Medication Instructions Recorded Confirmed Type acetaminophen 500 mg capsule 1,000 mg PO Q6H PRN Pain 05/28/20 11/10/23 History aspirin 81 mg tablet,delayed 81 mg PO QPM 05/28/20 11/10/23 History release (Adult Low Dose Aspirin) multivitamin with minerals 1 tab PO QAM 05/28/20 11/10/23 History famotidine 20 mg tablet 20 mg PO BID #60 tabs 06/23/23 08/30/23 Rx zoledronic acid 5 mg/100 mL in See Rx Instructions IV ONCE #100 mL 07/29/23 11/10/23 Rx mannitol 5 %-water intravenous piggybck (Reclast) oxycodone-acetaminophen 5 mg-325 1 tab PO Q6H PRN pain 3 days #24 08/12/23 11/10/23 Rx mg tablet tabs empagliflozin 25 mg tablet 25 mg PO QAM #90 tabs 08/31/23 11/10/23 Rx metoclopramide HCl 5 mg tablet 5 mg PO .COMPLEX #120 tabs 08/31/23 11/10/23 Rx metoprolol succinate 25 mg 25 mg PO QAM #30 tabs 10/18/23 11/10/23 Rx tablet,extended release 24 hr blood sugar diagnostic (OneTouch #100 ea 11/01/23 Rx Ultra Test strips) nitroglycerin 0.4 mg sublingual 0.4 mg sublingual UD PRN chest 11/01/23 11/10/23 Rx tablet (Nitrostat) pain #25 tabs nystatin 100,000 unit/gram topical 1 applic topical BID #30 grams 11/10/23 11/10/23 Rx powder losartan 25 mg tablet 25 mg PO DAILY #90 tabs 11/11/23 Rx rosuvastatin 20 mg tablet 20 mg PO QAM #90 tabs 12/05/23 Rx dexlansoprazole 60 mg 60 mg PO QAM #90 caps 02/03/24 Rx capsule,biphase delayed release (Dexilant) ondansetron HCl 4 mg tablet 4 mg PO Q8H PRN nausea and 02/03/24 Rx vomiting #90 tabs semaglutide 1 mg/dose (4 mg/3 mL) 1 mg (0.75 mL) subcut .COMPLEX #3 03/09/24 Rx subcutaneous pen injector mL furosemide 20 mg tablet 20 mg PO DAILY #30 tabs 05/08/24 Rx Patient History Medical History (Updated 06/14/24 @ 15:44 by Avinash Deleon DO) Encounter for pre-operative examination 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" CAD (coronary artery disease) follows with [facility] Degenerative disc disease Raynaud's disease Diabetes mellitus, type 2 Varicose veins of both lower extremities hx of superficial blood clots Hearing deficit Surgical History History of facelift History of cardiac catheterization 04/2020 -- [facility] - CP --> CABG History of four vessel coronary artery bypass graft 05/2020>cecilia ford ? "can't remember" History of needle biopsy on breast--benign Status post left foot surgery to remove a needle History of open reduction and internal fixation (ORIF) procedure left arm--hardware in place History of cholecystectomy History of abdominoplasty History of colonoscopy with polypectomy History of esophagogastroduodenoscopy (EGD) History of varicose vein ligation bilt legs History of Emerald-en-Y gastric bypass History of tooth extraction all teeth Status post bilateral LASIK surgery History of bilateral cataract extraction S/P vaginal hysterectomy S/P tonsillectomy Status post right hip replacement x7--last was 11/06/2012 Family History Mother Myocardial infarction Stroke Family history of diabetes mellitus Diabetes Sister Myocardial infarction Family history of diabetes mellitus Diabetes Coronary heart disease Father Myocardial infarction Family history of diabetes mellitus Diabetes Brother Lung cancer Family history of diabetes mellitus Coronary heart disease Son Family history of diabetes mellitus Daughter Family history of diabetes mellitus Grandfather (Maternal) Family history of diabetes mellitus Grandmother (Paternal) Family history of diabetes mellitus Family hx of colon cancer Grandmother (Maternal) Family history of diabetes mellitus Other Colorectal cancer No family history of adverse response to anesthesia Denies family history of Ovarian cancer Prostate cancer Breast cancer Social History (Updated 11/10/23 @ 09:09 by GRACY Benitez) Smoking Status: Never smoker Second Hand Exposure: No; Do You Dip or Chew Tobacco: No; Hx Alcohol Use: No Preferred Language: [place] Communication Ability: Effective Visual Impairment: No Limitations Hearing Ability: Normal Escort Service Attendant Required: No Beliefs That Will Affect Care: None marital status: Current Living Situation: Family Current Living Situation Comment: with daughter current occupational status: retired Feels Safe at Home: Yes Childhood Exposure to Second-Hand Smoke: No Diet: diabetic caffeine: Yes during the past year weight has: remained stable Dental Care, Regularly: No Physical Activity Frequency: 3-4 Times per Week Seatbelt Use: always Sunscreen Use: No Assistive Devices: Cane, Denture - Upper, Denture - Lower and Glasses Review of Systems Review of Systems: All systems reviewed & are unremarkable except as noted in HPI & below Physical Exam Physical Exam: On physical examination of the patient's left lower extremity, she has tenderness palpation about her left hip. She has a shortened and externally rotated left lower extremity. She has intact pulses in the foot. She has pain with logroll and heel strike. She has intact sensation throughout the lower extremity L2-S1 Results & Data Vital Signs (Past 12 Hours) Vital Signs Temp Pulse Pulse Resp BP BP Pulse Ox 06/14/24 14:20 06/14/24 14:20 06/14/24 14:20 36.8 C 72 18 150/77 H 97 06/14/24 14:00 77 18 150/77 H 97 06/14/24 12:49 65 06/14/24 12:16 36.8 C 65 18 188/86 H 96 O2 Del Method O2 Flow Rate 06/14/24 14:20 Room Air 06/14/24 14:20 Room Air 06/14/24 14:20 Room Air 0 06/14/24 14:00 Room Air 06/14/24 12:49 06/14/24 12:16 Room Air Diagnostic Findings x-rays left hip, pelvis, left femur obtained today were personally reviewed and interpreted. These demonstrate a basicervical left femoral neck fracture. CT pelvis also personally interpreted and reviewed. This demonstrates a basicervical left femoral neck fracture (4) Coronary artery disease Associated angina: without angina Coronary Disease-Associated Artery/Lesion type: [place] artery [place] vs. transplanted heart: [place] heart Qualified Code(s): I25.10 - Atherosclerotic heart disease of [place] coronary artery without angina pectoris (8) Carotid artery plaque Laterality: bilateral Qualified Code(s): I65.23 - Occlusion and stenosis of bilateral carotid arteries (9) Hypertension Hypertension type: primary hypertension Qualified Code(s): I10 - Essential (primary) hypertension
--- NOTE | 2024-06-14 15:43 | XRay Report ---
XR femur LT 2V routine CLINICAL HISTORY: eval entire bone COMPARISON: X-ray earlier today FINDINGS: There is improved alignment at the intertrochanteric proximal femur fracture. No other fra cture or dislocation seen at the left femur. IMPRESSION: Improved alignment. ACT 112: Negative or not required by law. Electronically signed by: Juan Jose Ga M.D. 06/14/2024 3:41 PM
[2024-06-14 15:57] LABS: Partial Thromboplastin Time 27 Seconds (21-31); Prothrombin Time 10.5 Seconds (9.0-12.0)
--- NOTE | 2024-06-14 16:01 | History & Physical Report ---
Date of Service June 14, 2024 Assessment & Plan (1) Closed left hip fracture: Plan: 79-year-old female who had a fall without evidence of seizure or presyncope, patient has felt slightly more weak than normal and is suspected to have a UTI contributing to her weakness. She sustained a left hip fracture for which she is undergoing operative intervention as a RCRI approximate 10.1 moderate risk candidate due to her history of CABG and IDDM. L Hip Fxr CThead: No acute findings Hip/pelvis x-ray: Intertrochanteric fracture of left femur CTpelvis: Acute left femoral neck fracture, old left pubic rami fractures, right hip replacement N.p.o. Orthopedic consulted. Patient anticipated for operative repair with orthopedics, possibly evening of 06/14/2024 RCRI moderate/10.1% risk given history of CAD and history of CABG and previous treatment with insulin for DM. No history of TIA, CKD, or CHF. History of CAD, hypertension, hyperlipidemia - [place] [facility] [place] No chest pain or issues since. No history of PCI/heart stents. No history of CHF/edema/pulm edema. Last level [place] and back, no anginal symptoms with this Continue rosuvastatin Continue metoprolol 25 mg succinate every morning Losartan held perioperatively Continue Lasix 20 mg p.o. daily Continue aspirin 81 mg daily Dapagliflozin temporarily held Type II DM Switch to basal bolus while admitted Goal BSG [id number] - Curently on trulicity, is pending switching to ozempic but has not yet done so. Takes trulicity weekly on , did not take this yesterday. Last took 8 days ago. UTI UA infected appearing patient feels she has increased weakness but no fever/chills. Continue Rocephin Follow UCx Chronic stable issues: GERD: Continue Pepcid, convert PPI to Protonix while inpatient History of gastric bypass: No acute change in management. Continue PPI therapy DVT prophylaxis: Held preoperatively CODE STATUS: DNR/DNI, discussed with patient family at bedside Diet: N.p.o. pending hip repair Disposition: MSO. (2) Coronary artery disease: (3) Hypertension: (4) Hyperlipidemia: (5) GERD (gastroesophageal reflux disease): (6) Diabetic retinopathy: (7) Diabetes mellitus, type 2: History of Present Illness Primary Care Provider: Caden Ceja MD Yenny is a 79-year-old female with past medical history of hypertension, esophageal dysphagia, lower extremity edema, candidiasis, type 2 diabetes after a fall and was found to have hip fracture. Seen at bedside. REports she fell. Not sure why, has 'gotten my feet tangled' before with some weakness, but was not lightheaded or dizzy. Not sureif she tripped. No chest pain or chest pressure. No history of seizures or syncope. Has fallen from weakness and her legs giving out in the past. No recent illnesses. Denies URI symtpoms.Denies fever,chills. Does get chronic reflux symptoms. history of CAD s/p triple bipass. Walks [place] mail[place] the country, no limiting chest pain or angima. No orthopnea Does get mild leg intermittent leg swelling, none currently or recently +nausea no vomiting no dirrhea/constipation no abdominal pain No longer on insulin Curently on trulicity, is pending switching to ozempic but has not yet done so. Takes trulicity weekly on , did not take this yesterday. Last took 8 days ago. Medical History: Reviewed Medications: Reviewed.Did not take any medications this morning Surgical History: Reviewed Family history: Reviewed Allergies: Reviewed. NKDA Social History:No tobacco use, rare social 3-4 day/wk ETOh use 1 drink in a sitting Code Status: DNR/DNI Allergies Allergy/AdvReac Type Severity Reaction Status Date / Time alendronate sodium AdvReac Intermediate SEVERE Verified 11/10/23 09:02 HEADACHE risedronate sodium AdvReac Intermediate SEVERE Verified 11/10/23 09:02 HEADACHE metformin AdvReac Mild DIARRHEA Verified 11/10/23 09:02 Home Medications Medication Instructions Recorded Confirmed Type acetaminophen 500 mg capsule 1,000 mg PO Q6H PRN Pain 05/28/20 11/10/23 History aspirin 81 mg tablet,delayed 81 mg PO QPM 05/28/20 11/10/23 History release (Adult Low Dose Aspirin) multivitamin with minerals 1 tab PO QAM 05/28/20 11/10/23 History famotidine 20 mg tablet 20 mg PO BID #60 tabs 06/23/23 08/30/23 Rx zoledronic acid 5 mg/100 mL in See Rx Instructions IV ONCE #100 mL 07/29/23 11/10/23 Rx mannitol 5 %-water intravenous piggybck (Reclast) oxycodone-acetaminophen 5 mg-325 1 tab PO Q6H PRN pain 3 days #24 08/12/23 11/10/23 Rx mg tablet tabs empagliflozin 25 mg tablet 25 mg PO QAM #90 tabs 08/31/23 11/10/23 Rx metoclopramide HCl 5 mg tablet 5 mg PO .COMPLEX #120 tabs 08/31/23 11/10/23 Rx metoprolol succinate 25 mg 25 mg PO QAM #30 tabs 10/18/23 11/10/23 Rx tablet,extended release 24 hr blood sugar diagnostic (OneTouch #100 ea 11/01/23 Rx Ultra Test strips) nitroglycerin 0.4 mg sublingual 0.4 mg sublingual UD PRN chest 11/01/23 11/10/23 Rx tablet (Nitrostat) pain #25 tabs nystatin 100,000 unit/gram topical 1 applic topical BID #30 grams 11/10/23 11/10/23 Rx powder losartan 25 mg tablet 25 mg PO DAILY #90 tabs 11/11/23 Rx rosuvastatin 20 mg tablet 20 mg PO QAM #90 tabs 12/05/23 Rx dexlansoprazole 60 mg 60 mg PO QAM #90 caps 02/03/24 Rx capsule,biphase delayed release (Dexilant) ondansetron HCl 4 mg tablet 4 mg PO Q8H PRN nausea and 02/03/24 Rx vomiting #90 tabs semaglutide 1 mg/dose (4 mg/3 mL) 1 mg (0.75 mL) subcut .COMPLEX #3 03/09/24 Rx subcutaneous pen injector mL furosemide 20 mg tablet 20 mg PO DAILY #30 tabs 05/08/24 Rx Past Med/Surg History Problem List (Updated 06/14/24 @ 15:44 by Avinash Deleon DO) Closed left hip fracture Lower extremity edema Esophageal dysphagia Bile acid esophageal reflux Cervicalgia Coronary artery disease coronary bypass graft 05/20/2020 [facility]: [place] to LAD, saphenous vein to OM1 and SVG to RCA Acquired dysphasia (Acute) Anemia (Acute) Depression (Acute) Dysphagia (Acute) History of gastric bypass (Acute) Prolapse of vaginal marks (Acute) Tinnitus (Acute) Status post total replacement of hip (Acute 11/06/12) Urinary incontinence (Acute) Vitamin D deficiency (Acute) History of adenomatous polyp of colon Peripheral arterial disease (Acute) Osteoporosis (Acute) Mitral regurgitation (Acute) Lumbar canal stenosis (Acute) Hypertension (Acute) Hyperlipidemia (Acute) GERD (gastroesophageal reflux disease) (Acute) Diabetic retinopathy (Acute) Carotid artery plaque Medical History (Updated 06/14/24 @ 15:44 by Avinash Deleon DO) Encounter for pre-operative examination 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" CAD (coronary artery disease) follows with [facility] Degenerative disc disease Raynaud's disease Diabetes mellitus, type 2 Varicose veins of both lower extremities hx of superficial blood clots Hearing deficit Surgical History History of facelift History of cardiac catheterization 04/2020 -- [facility] - CP --> CABG History of four vessel coronary artery bypass graft 05/2020>cecilia ford ? "can't remember" History of needle biopsy on breast--benign Status post left foot surgery to remove a needle History of open reduction and internal fixation (ORIF) procedure left arm--hardware in place History of cholecystectomy History of abdominoplasty History of colonoscopy with polypectomy History of esophagogastroduodenoscopy (EGD) History of varicose vein ligation bilt legs History of Emerald-en-Y gastric bypass History of tooth extraction all teeth Status post bilateral LASIK surgery History of bilateral cataract extraction S/P vaginal hysterectomy S/P tonsillectomy Status post right hip replacement x7--last was 11/06/2012 Family History Mother Myocardial infarction Stroke Family history of diabetes mellitus Diabetes Sister Myocardial infarction Family history of diabetes mellitus Diabetes Coronary heart disease Father Myocardial infarction Family history of diabetes mellitus Diabetes Brother Lung cancer Family history of diabetes mellitus Coronary heart disease Son Family history of diabetes mellitus Daughter Family history of diabetes mellitus Grandfather (Maternal) Family history of diabetes mellitus Grandmother (Paternal) Family history of diabetes mellitus Family hx of colon cancer Grandmother (Maternal) Family history of diabetes mellitus Other Colorectal cancer No family history of adverse response to anesthesia Denies family history of Ovarian cancer Prostate cancer Breast cancer Social History (Updated 11/10/23 @ 09:09 by GRACY Benitez) Smoking Status: Never smoker Second Hand Exposure: No; Do You Dip or Chew Tobacco: No; Hx Alcohol Use: No Preferred Language: Russian Communication Ability: Effective Visual Impairment: No Limitations Hearing Ability: Normal Cane Flume Watcher Required: No Beliefs That Will Affect Care: None marital status: Current Living Situation: Family Current Living Situation Comment: with daughter current occupational status: retired Feels Safe at Home: Yes Childhood Exposure to Second-Hand Smoke: No Diet: diabetic caffeine: Yes during the past year weight has: remained stable Dental Care, Regularly: No Physical Activity Frequency: 3-4 Times per Week Seatbelt Use: always Sunscreen Use: No Assistive Devices: Cane, Denture - Upper, Denture - Lower and Glasses Physical Exam Physical Exam: General: A&Ox3. NAD. Cooperative. HEENT: Atraumatic, normocephalic. Vision/hearing intact Pulm: CTAB A&P. -wheezes, -rales, -rhonchi. Symmetrical chest rise. No increased work of breathing. No respiratory distress. Cardiac: RRR, -mrg. Radial pulses intact and symmetrical. Abdominal: Nontender, nondistended, soft. BS present. Ext: warm, dry. No edema. Wiggles toes bilat. PT pulse intact bilat. L leg slightly extrenally rotated. L hip TTP at anterior/lateral hip Results & Data Results & Data Vital Signs (Past 12 Hours) Vital Signs Temp Pulse Pulse Resp BP BP Pulse Ox 06/14/24 14:20 06/14/24 14:20 06/14/24 14:20 36.8 C 72 18 150/77 H 97 06/14/24 14:00 77 18 150/77 H 97 06/14/24 12:49 65 06/14/24 12:16 36.8 C 65 18 188/86 H 96 O2 Del Method O2 Flow Rate 06/14/24 14:20 Room Air 06/14/24 14:20 Room Air 06/14/24 14:20 Room Air 0 06/14/24 14:00 Room Air 06/14/24 12:49 06/14/24 12:16 Room Air PG Care Time/CCT Total # of Minutes Spent Total Time Spent with Patient: Total time spent is greater than 50% in coordination of care (as documented) at patient's floor/unit and/or counseling patient: Coding Level of Care Code 12186 INT INP/OBS CARE MIN Diagnoses Closed left hip fracture S72.002A Coronary artery disease involving [place] coronary artery of [place] heart without angina pectoris I25.10 Coronary Disease-Associated Artery/Lesion type: [place] artery [place] vs. transplanted heart: [place] heart Associated angina: without angina Primary hypertension I10 Hypertension type: primary hypertension Pure hypercholesterolemia E78.00 Hyperlipidemia type: pure hypercholesterolemia GERD (gastroesophageal reflux disease) K21.9 Diabetic retinopathy E11.319 Diabetes mellitus, type 2 E11.9 (2) Coronary artery disease Coronary Disease-Associated Artery/Lesion type: [place] artery [place] vs. transplanted heart: [place] heart Associated angina: without angina Qualified Code(s): I25.10 - Atherosclerotic heart disease of [place] coronary artery without angina pectoris (3) Hypertension Hypertension type: primary hypertension Qualified Code(s): I10 - Essential (primary) hypertension (4) Hyperlipidemia Hyperlipidemia type: pure hypercholesterolemia Qualified Code(s): E78.00 - Pure hypercholesterolemia, unspecified
--- NOTE | 2024-06-14 16:06 | CT Scan Report ---
Clinical History: Fall Technique: Axial computed tomography images were obtained of the brain without intravenous contrast. Findings: There is diffuse cerebral atrophy, within expected limits for the patient's age. Areas of decreased attenuation are seen within the periventricular white matter, likely representing chronic small vessel ischemic disease. There is no definite sign of acute or old infarction. No intracranial hemorrhage is evident. No definite mass lesion is seen on this noncontrast examination. There is no midline shift or other form of herniation. No hydrocephalus is seen. No fracture is identified. The orbits and the visualized paranasal sinuses appear unremarkable. The mastoid air cells appear clear. Impression: 1. Cerebral atrophy and chronic small vessel ischemic disease 2. Otherwise unremarkable noncontrast CT of the brain Electronically signed by Jose Whitehead 06-14-2024 4:06 PM
--- NOTE | 2024-06-14 16:11 | CT Scan Report ---
Clinical history: Left hip pain after fall Technique: Axial computed tomography images were obtained of the pelvis without intravenous contrast Findings: There is an acute comminuted intertrochanteric fracture of the left femoral neck with mild displacement of fracture fragments. There is an old healed fracture of the left inferior pubic ramus. There is also suspected old healed fracture of the left superior pubic ramus. No focal osseous lesion is seen. There is a right hip total arthroplasty in expected position. 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 There are mild degenerative changes of the pubic symphysis. The sacroiliac joints appear unremarkable. There is no sign of osteomyelitis. There is scoliosis and degenerative disc disease of the visualized lumbar spine. The visualized musculature appears unremarkable. No soft tissue mass or fluid collection is seen The iliac arteries are of normal caliber. No adenopathy is noted. The visualized bowel appears unremarkable. No free intraperitoneal fluid or air is seen. There is air within the urinary bladder that could be due to recent catheterization Impression: 1. Acute left femoral neck fracture 2. Old left pubic rami fractures 3. Right hip replacement Electronically signed by Jose Whitehead 06-14-2024 4:10 PM
--- NOTE | 2024-06-14 16:21 | CT Scan Report ---
CT CERVICAL THORACIC LUMBAR SPINE WITHOUT CONTRAST: HISTORY: PAIN TECHNIQUE: Noncontrast CT examination of the cervical thoracic lumbar spine is performed. Coronal and sagittal reformats were created. COMPARISON: FINDINGS: CERVICAL SPINE: There is no significant vertebral body height loss. No acute traumatic fracture identified. There is no significant spondylolisthesis. Multilevel degenerative changes characterized by disc osteophyte complex, bilateral facet and uncovertebral hypertrophy resulting and neural foraminal narrowing at multiple levels, worst at mid to lower spine. Visualized soft tissues of neck are unremarkable. Visualized lung apex is clear. Calcified body measuring 1.9 cm with surrounding fluid in the caudal aspect of the right joint capsule. Severe degenerative changes of the right shoulder. IMPRESSION: No acute traumatic fracture of the cervical spine. Multilevel degenerative changes as above Calcified body measuring 1.9 cm with surrounding fluid in the caudal aspect of the right joint capsule. This could represent a free body. Severe degenerative changes of the right shoulder. Electronically signed by Javad Gamino 06-14-2024 4:21 PM
[2024-06-14] MEDS: ONDANSETRON INJ 2 MG/ML 2 ML VIAL IV STA (16:33)
--- NOTE | 2024-06-14 16:51 | Anesthesiology Consultation ---
Date of Service June 14, 2024 Assessment & Plan (1) Encounter for pre-operative examination: Chart Review Chart Review: Acceptable Risk for Surgery History Surgery Operation Date: 06/14/24 07:00 Proposed Procedures p Left Trochanteric Nail - Avinash Deleon DO Height/Weight Height: 4 ft 9 in Weight: 48.8 kg Allergies Allergy/AdvReac Type Severity Reaction Status Date / Time alendronate sodium AdvReac Intermediate SEVERE Verified 11/10/23 09:02 HEADACHE risedronate sodium AdvReac Intermediate SEVERE Verified 11/10/23 09:02 HEADACHE metformin AdvReac Mild DIARRHEA Verified 11/10/23 09:02 Medications Home Medications Medication Instructions Recorded Confirmed Last Taken acetaminophen 500 mg capsule 1,000 mg PO Q6H PRN Pain 05/28/20 06/14/24 08/28/23 aspirin 81 mg tablet,delayed 81 mg PO QPM 05/28/20 06/14/24 08/29/23 release (Adult Low Dose Aspirin) multivitamin with minerals 1 tab PO QAM 05/28/20 06/14/24 08/29/23 famotidine 20 mg tablet 20 mg PO BID #60 tabs 06/23/23 06/14/24 08/29/23 zoledronic acid 5 mg/100 mL in See Rx Instructions IV ONCE #100 mL 07/29/23 06/14/24 Unknown mannitol 5 %-water intravenous piggybck (Reclast) oxycodone-acetaminophen 5 mg-325 1 tab PO Q6H PRN pain 3 days #24 08/12/23 06/14/24 Unknown mg tablet tabs empagliflozin 25 mg tablet 25 mg PO QAM #90 tabs 08/31/23 06/14/24 Unknown metoprolol succinate 25 mg 25 mg PO QAM #30 tabs 10/18/23 06/14/24 Unknown tablet,extended release 24 hr blood sugar diagnostic (OneTouch #100 ea 11/01/23 Unknown Ultra Test strips) nitroglycerin 0.4 mg sublingual 0.4 mg sublingual UD PRN chest 11/01/23 06/14/24 Unknown tablet (Nitrostat) pain #25 tabs losartan 25 mg tablet 25 mg PO DAILY #90 tabs 11/11/23 06/14/24 Unknown rosuvastatin 20 mg tablet 20 mg PO QAM #90 tabs 12/05/23 06/14/24 Unknown dexlansoprazole 60 mg 60 mg PO QAM #90 caps 02/03/24 06/14/24 Unknown capsule,biphase delayed release (Dexilant) ondansetron HCl 4 mg tablet 4 mg PO Q8H PRN nausea and 02/03/24 06/14/24 Unknown vomiting #90 tabs furosemide 20 mg tablet 20 mg PO DAILY #30 tabs 05/08/24 06/14/24 Unknown metoclopramide HCl 5 mg tablet 5 mg PO UD 06/14/24 06/14/24 Unknown nystatin 100,000 unit/gram topical 1 applic topical BID PRN Other 06/14/24 06/14/24 Unknown powder semaglutide 1 mg/dose (4 mg/3 mL) 1 mg subcut WK 06/14/24 06/14/24 Unknown subcutaneous pen injector Past Medical History Medical History (Updated 06/14/24 @ 16:49 by Jon Vale MD) Bile acid esophageal reflux Hypertension 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" CAD (coronary artery disease) CABG 2020 Degenerative disc disease Raynaud's disease Diabetes mellitus, type 2 Varicose veins of both lower extremities hx of superficial blood clots Hearing deficit Past Family History Family History Mother Myocardial infarction Stroke Family history of diabetes mellitus Diabetes Sister Myocardial infarction Family history of diabetes mellitus Diabetes Coronary heart disease Father Myocardial infarction Family history of diabetes mellitus Diabetes Brother Lung cancer Family history of diabetes mellitus Coronary heart disease Son Family history of diabetes mellitus Daughter Family history of diabetes mellitus Grandfather (Maternal) Family history of diabetes mellitus Grandmother (Paternal) Family history of diabetes mellitus Family hx of colon cancer Grandmother (Maternal) Family history of diabetes mellitus Other Colorectal cancer No family history of adverse response to anesthesia Denies family history of Ovarian cancer Prostate cancer Breast cancer Past Surgical History Surgical History History of facelift History of cardiac catheterization 04/2020 -- [facility] - [facility] --> CABG History of four vessel coronary artery bypass graft 05/2020>cecilia [facility] ? "can't remember" History of needle biopsy on breast--benign Status post left foot surgery to remove a needle History of open reduction and internal fixation (ORIF) procedure left arm--hardware in place History of cholecystectomy History of abdominoplasty History of colonoscopy with polypectomy History of esophagogastroduodenoscopy (EGD) History of varicose vein ligation bilt legs History of Emerald-en-Y gastric bypass History of tooth extraction all teeth Status post bilateral LASIK surgery History of bilateral cataract extraction S/P vaginal hysterectomy S/P tonsillectomy Status post right hip replacement x7--last was 11/06/2012 Social History Smoking Status: Never smoker Do You Dip or Chew Tobacco: No Hx Alcohol Use: No substance use type: does not use Physical Exam Vital Signs Last Vital Signs Temp 36.8 C 06/14/24 14:20 Pulse 72 06/14/24 14:20 Resp 18 06/14/24 14:20 BP 150/77 H 06/14/24 14:20 Pulse Ox 97 06/14/24 14:20 O2 Del Method Room Air 06/14/24 14:20 O2 Flow Rate 0 06/14/24 14:20 Testing Laboratory Results 06/14/24 12:21 06/14/24 14:12 PT 10.5 Seconds (9.0-12.0) 06/14/24 14:12 INR 1.0 (0.9-1.1) 06/14/24 14:12 APTT 27 Seconds (21-31) 06/14/24 14:12 Urine Color Yellow 06/14/24 12:23 Urine Appearance Cloudy (Clear) A 06/14/24 12:23 Urine pH 5.5 (4.5-7.5) 06/14/24 12:23 Ur Specific [place] 1.029 (1.000-1.030) 06/14/24 12:23 Urine Protein Negative (Negative) 06/14/24 12:23 Urine Glucose (UA) 3+ (Negative) H 06/14/24 12:23 Urine Ketones Negative (Negative) 06/14/24 12:23 Urine Nitrite Negative (Negative) 06/14/24 12:23 Ur Leukocyte Esterase Trace (Negative) H 06/14/24 12:23 Urine WBC (Auto) >50 /hpf (0-5) H 06/14/24 12:23 Urine RBC (Auto) >20 /hpf (0-2) H 06/14/24 12:23 U Hyaline Cast (Auto) 0-2 /lpf (0-2) 06/14/24 12:23 U Epithel Cells (Auto) 0-2 /hpf (0-2) 06/14/24 12:23 Urine Bacteria (Auto) 4+ (None Seen) H 06/14/24 12:23 Electrocardiogram Date: 06/14/24 Findings: + NSR @ (63) and + RBBB Echocardiogram Date: 10/08/20 EF: 60-65% LV Function: normal mod TR
[2024-06-14] MEDS ORDERED: PROPOFOL IV EMULSION 10 MG/ML 20 ML VIAL IV ONE (17:08)
[2024-06-14] MEDS ORDERED: fentaNYL citrate PF 100 MCG/2 ML VIAL ONE (17:08)
[2024-06-14] MEDS ORDERED: ONDANSETRON INJ 2 MG/ML 2 ML VIAL ONE (17:08)
[2024-06-14] MEDS ORDERED: LIDOCAINE 2% 2 ML VIAL/AMP(20MG/ML) INFIL ONE (17:08)
[2024-06-14] MEDS ORDERED: DEXAMETHASONE SOD INJ 4 MG/ML VIAL ONE (17:08)
[2024-06-14] MEDS ORDERED: ePHEDrine sulfate 50 MG/ML AMP IV PRN (17:24)
[2024-06-14] MEDS ORDERED: NALOXONE HCL 0.4 MG/1 ML VIAL/CARP IV PRN (17:24)
[2024-06-14] MEDS ORDERED: FLUMAZENIL 0.1 MG/1 ML 10 ML VIAL IV PRN (17:24)
[2024-06-14] MEDS ORDERED: LABETALOL HCL IV 5 MG/ML 20ML IV PRN (17:24)
[2024-06-14] MEDS ORDERED: fentaNYL citrate PF 100 MCG/2 ML VIAL IV PRN (17:24)
[2024-06-14] MEDS ORDERED: PROMETHAZINE HCL 6.25 MG in SODIUM CHLORIDE 0.9% 50 ML IV PRN (17:24)
[2024-06-14] MEDS ORDERED: ATROPINE SULFATE 0.1 MG/ML 10ML SYR IV PRN (17:24)
[2024-06-14] MEDS: ceFAZolin 2000MG 2,000 MG/15 ML SYR IV ONE (17:40)
[2024-06-14] MEDS ORDERED: PHENYLEPHRINE 100MCG/ML 5ML SYR ONE (17:57)
[2024-06-14] MEDS ORDERED: ePHEDrine sulfate 50 MG/5 ML SYR ONE (17:57)
[2024-06-14] MEDS: ceFAZolin 2,000 MG/15 ML IV PUSH IV ONE (18:35)
--- NOTE | 2024-06-14 19:31 | Post Operative Brief Note ---
Immediate Post Op Note Date of Surgery June 14, 2024 Pre & Post Diagnosis Operation Date: 06/14/24 07:00 Pre-Op Diagnosis: Closed left hip fracture Post-Op Diagnosis: Closed left hip fracture I identified the patient and participated in the time-out.: Yes Procedure Operation Date: 06/14/24 07:00 Actual Procedures p Left hip open reduction; cephalomedullary nailing for left hip fracture (Left) - Avinash Deleon DO 1. Open reduction and cephalomedullary nailing left hip 2. Physician directed fluoroscopy greater than 1 hour Surgeon Avinash Deleon DO Brick Pointer None Estimated Blood Loss 200 Findings Consistent with Post-Op Diagnosis Disposition Disposition: Recovery Room Overlapping Procedure I was present for: the critical portions of procedure. (The entire surgery)
[2024-06-14] MEDS: ONDANSETRON INJ 2 MG/ML 2 ML VIAL IV PRN (19:39)
--- NOTE | 2024-06-14 19:54 | Anesthesiology Progress Note ---
Date of Service June 14, 2024 Anesthesia Post Procedure Vital Signs Vital Signs: Temp Pulse Pulse Resp BP BP Pulse Ox 06/14/24 19:50 36.5 C 98 H 18 141/80 H 94 06/14/24 19:40 100 H 20 152/86 H 99 06/14/24 19:30 36.1 C L 94 H 18 153/78 H 100 06/14/24 17:15 36.8 C 68 17 136/66 94 06/14/24 17:04 75 24 132/67 95 06/14/24 16:19 72 20 122/77 96 06/14/24 15:19 79 20 138/79 96 06/14/24 14:20 06/14/24 14:20 06/14/24 14:20 36.8 C 72 18 150/77 H 97 06/14/24 14:00 77 18 150/77 H 97 06/14/24 12:49 65 06/14/24 12:16 36.8 C 65 18 188/86 H 96 O2 Del Method O2 Flow Rate 06/14/24 19:50 Room Air 06/14/24 19:40 Oxymask 4 06/14/24 19:30 Oxymask 6 06/14/24 17:15 Room Air 06/14/24 17:04 Room Air 06/14/24 16:19 Room Air 06/14/24 15:19 Room Air 06/14/24 14:20 Room Air 06/14/24 14:20 Room Air 06/14/24 14:20 Room Air 0 06/14/24 14:00 Room Air 06/14/24 12:49 06/14/24 12:16 Room Air Pain Intensity Left Hip: Pain Intensity: 8 Transfer of Care Handoff Completed per policy Notes Mental Status: alert / awake / arousable Patient Amnestic to Procedure: Yes Nausea / Vomiting: adequately controlled Pain: adequately controlled Airway Patency, RR, SpO2: stable & adequate BP & HR: stable & adequate Hydration State: stable & adequate Anesthetic Complications: no major complications apparent
--- NOTE | 2024-06-14 20:07 | XRay Report ---
Exam(s): XR LEFT HIP EXAM: XR Left Hip With Pelvis When Performed, 2 or 3 Views CLINICAL HISTORY: Reason for exam: postop. TECHNIQUE: Two or three views of the left hip with pelvis when performed. COMPARISON: No relevant prior studies available. FINDINGS: Bones/joints: Status post open reduction internal fixation of the left femur with intramedullary nail, distal interlocking transcortical screw, and proximal interlocking dynamic hip screw. No hardware complication. Underlying intertrochanteric fracture is held in anatomic alignment. Osteopenia. Lumbar spondylosis. Soft tissues: Soft tissue swelling and subcutaneous gas in keeping with expected postoperative change. Vasculature: Vascular calcifications. IMPRESSION: Expected postoperative changes status post ORIF left femur. Electronically signed by: Lakeshia Jenkins M.D. 06/14/24 20:06 PM
[2024-06-14] MEDS ORDERED: MoRPHine SULFATE 2 MG/ML CARP IV PRN (20:15)
[2024-06-14] MEDS ORDERED: MoRPHine SULFATE 4 MG/ML 1 ML CARP\\VIAL IV PRN (20:15)
[2024-06-14] MEDS ORDERED: INFLUENZA VACC TS2024-25(65y+)/PF (IIV3) 0.5mL Syr IM ONE (20:39)
[2024-06-14] MEDS: ONDANSETRON INJ 2 MG/ML 2 ML VIAL ONE (21:33)
[2024-06-15] MEDS: ONDANSETRON INJ 2 MG/ML 2 ML VIAL IV PRN (00:13)
[2024-06-15] MEDS ORDERED: ACETAMINOPHEN 1,000 MG/100 ML VIAL IV PRN (00:28)
[2024-06-15 06:45] LABS: Basophils # (auto) 0.02 K/uL (0.00-0.20); Basophils % (auto) 0.2 %; Hematocrit (blood only) 37.6 % (37.0-47.0); Hemoglobin 12.1 g/dl (12.0-16.0); Immature Granulocytes # (auto) 0.02 K/uL (0.01-0.20); Immature Granulocytes % (auto) 0.2 %; Lymphocytes # (auto) 0.95 K/uL (1.20-3.40); Lymphocytes % (auto) 11.1 %; Mean Corpuscular Hemoglobin 32.3 pg (25.0-34.0); Mean Corpuscular Hgb Conc 32.2 g/dL (32.0-36.0); Mean Corpuscular Volume 100.3 fL (80.0-100.0); Mean Platelet Volume 10.2 fL (9.4-12.4); Monocytes # (auto) 0.75 K/uL (0.11-0.59); Monocytes % (auto) 8.8 %; Neutrophils # (auto) 6.83 K/uL (1.40-6.50); Neutrophils % (auto) 79.7 %; Platelet Count 221 K/uL (130-400); RDW Coefficient of Variation 12.9 % (11.5-14.5); RDW Standard Deviation 47.8 fL (36.4-46.3); Red Blood Count 3.75 M/uL (4.20-5.40); White Blood Count 8.57 K/ul (4.8-10.8)
[2024-06-15 07:07] LABS: BUN Creatinine Ratio 37.8 (10-20); Calcium 8.6 mg/dl (8.6-10.3); Creatinine Clr Calc Pharmacy 83.1 ml/min; Potassium 4.2 mmol/L (3.5-5.1)
--- NOTE | 2024-06-15 08:37 | Fluoroscopy Report ---
FL hip LT 2-3V CLINICAL HISTORY: LT TROCHNAIL COMPARISON STUDY: None FLUOROSCOPY TIME: 180 seconds FLUOROSCOPY IMAGES: 6 EXPOSURE DOSE: 17 mGy FINDINGS: Fluoroscopy was provided for short femoral gamma nail placement. IMPRESSION: Intraoperative fluoroscopy. ACT 112: Negative or not required by law. Electronically signed by: Juan Jose Ga M.D. 06/15/2024 8:36 AM
[2024-06-15] MEDS: METOPROLOL SUCC 25MG EXT REL TAB PO SCH (09:19)
[2024-06-15] MEDS: LOSARTAN POTASSIUM 25 MG TAB PO SCH (09:19)
[2024-06-15] MEDS: FUROSEMIDE 20 MG TAB PO SCH (09:19)
[2024-06-15] MEDS: ROSUVASTATIN CALCIUM 20 MG TAB PO SCH (09:20)
[2024-06-15] MEDS: PANTOprazole 40 MG TAB PO SCH (09:20)
[2024-06-15] MEDS: ACETAMINOPHEN 325 MG TAB PO PRN (09:36)
--- NOTE | 2024-06-15 10:34 | Hospitalist Progress Note ---
Date of Service June 15, 2024 Assessment & Plan (1) Closed left hip fracture: (2) UTI (urinary tract infection): (3) Hypertension: (4) Diabetes mellitus, type 2: Plan 79-year-old female who had a fall without evidence of seizure or presyncope, patient has felt slightly more weak than normal likely related to her UTI. CT head showing no acute findings. CT pelvis showing acute left femoral neck fracture with old left public rami fractures. She underwent Left hip open reduction with cephalomedullary nailing with Dr. Deleon on 06/14. #Fall resulting in Left Hip Fracture Orthopedic consulted. S/P operative repair with Dr. Deleon 06/14. outpatient follow-up in 2 weeks Pain control: scheduled tylenol, prn oxycodone Bowels: scheduled senna, PRN miralax DVT: Eliquis 2.5 mg twice daily per discussion with Dr. Deleon PT/OT Remove [place] today, vitamin D level a.m. (received Reclast 08/03/2023) #UTI UA infected appearing, pt with frequent UTIs due to bladder prolapse. Tried pessary w/o relief. Continue Rocephin UC: E. coli, sensitivities pending #CAD, hypertension, hyperlipidemia History of triple CABG 2020 at [facility] [place] Continue rosuvastatin, metoprolol succinate 25 mg, ASA 81mg Resume losartan. Dapagliflozin held. Now with hypotension - encourage PO intake, check orthostatic VS, hold lasix #Type II DM Hold Trulicity (last dose 06/06) . Cont basal bolus while admitted BSG acceptable #GERD/hx of gastric bypass: Continue Pepcid, and PPI -with macrocytosis and h/o gastric bypass, check B12, folate DVT prophylaxis: Eliquis 2.5 mg twice daily Disposition: continued inpatient stay treating UTI, PT/OT evals Admission and Anticipated Discharge Date Admission Date: June 14, 2024 Supervising Physician Co-Signing Physician Notes PA Supervision Note: I did not personally see or examine the patient today, but I verified all escalante points of FRANCIS Marshall's assessment and plan with the following exceptions/additions: None Subjective patient seen lying in bed. Passing gas but no bowel movements and surgery. Having some pain that is not controlled with Tylenol. States that she has a pretty severe cystocele and has to use splinting to make her self void. Has tried pessaries in the past but they frequently fell out. Discussed the risk of an infection with a catheter and is agreeable to have this removed and can continue her manual stimulation that she has to do at home. Review of Systems Review of Systems: All systems reviewed & are unremarkable except as noted in Subjective Physical Exam Physical Exam: General: NAD, VS as above Resp: normal respiratory effort, lungs clear to auscultation CV: RRR, no murmur, Abd: normal bowel sounds, non tender, Soft Extremities: Moves all extremities, left hip lower dressing with saturation but intact. RN aware. Able to wiggle toes bilaterally Neuro: A&O x3, Skin: intact, no lesions noted Results & Data Results & Data Vital Signs (Past 12 Hours) Vital Signs Temp Pulse Resp BP Pulse Ox O2 Del Method 06/15/24 08:09 97.9 F 89 17 96/61 L 97 Room Air 06/15/24 03:06 97.5 F L 100 H 16 105/66 95 Room Air 06/14/24 23:53 97.9 F 102 H 17 115/64 95 Room Air Laboratory Results CBC and chemistry reviewed blood sugars reviewed urine culture reviewed PG Care Time/CCT Total # of Minutes Spent Total Time Spent with Patient: Total time spent is greater than 50% in coordination of care (as documented) at patient's floor/unit and/or counseling patient: Coding Level of Care Code 15836 SUB INP/OBS CARE 3/50MIN Diagnoses Closed left hip fracture S72.002A UTI (urinary tract infection) N39.0 Primary hypertension I10 Hypertension type: primary hypertension Diabetes mellitus, type 2 E11.9 (3) Hypertension Hypertension type: primary hypertension Qualified Code(s): I10 - Essential (primary) hypertension
--- NOTE | 2024-06-15 10:55 | Operative Report ---
Post Operative Report Pre & Post Diagnosis Operation Date: 06/14/24 07:00 Pre-Op Diagnosis: Closed left hip fracture Post-Op Diagnosis: Closed left hip fracture I identified the patient and participated in the time-out.: Yes Procedure Operation Date: 06/14/24 07:00 Actual Procedures p Left hip open reduction; cephalomedullary nailing for left hip fracture (Left) - Avinash Deleon DO 1. Left hip open reduction cephalomedullary nailing 2. Physician directed fluoroscopy Greater than 1 hour Surgeon Avinash Deleon DO Integration Specialist None Estimated Blood Loss 200 Findings Consistent with Post-Op Diagnosis Fluids See anesthesia record Specimens none Complications none immediately apparent Disposition Disposition: Recovery Room Indications Yenny is a 79-year-old female who presents to the emergency department today after a fall wherein she sustained a closed, traumatic, displaced left basicervical femoral neck fracture. I had long discussion with the patient, her daughter, and her who joined her at bedside with regards to this injury. We discussed in great detail the pathoanatomy, pathophysiology, treatment options. I expressed to them that this fracture represents a fracture of immobility and due to its significant displacement, as well as sequelae for nonoperative care, my recommendation is for operative management. I expressed to them that operative management for hip fractures is usually required so that the patient can have appropriate pain control, mobility, and decrease the risks of complications of immobility. I expressed to them that the risks of surgery include but are not limited to loss of life/limb, DVT, incomplete relief of pain, hardware prominence, hardware complication, hardware failure, iatrogenic injury to bone/nerve/tendon/vessel, nonunion, malunion, need for additional surgery, infection. I expressed to them that the alternatives to surgical management would include nonoperative care. If the patient were to pursue nonoperative care, I do believe the risks associated with it would be higher risk of decubitus ulcers, pneumonia, DVT. The benefits of surgical management would be pain control, sooner mobility. After thorough discussion of the risks and benefits of surgery and nonoperative care, the patient and her family through a shared decision-making model have elected to proceed with operative management. I did discuss with the patient and her family that hip fractures often times are a harbinger of worse things to come as often times they occur in patients nearing the end of their lives. I explained that when fractures such as these occur in patients after low-energy mechanisms - such as this patient's - it signifies a declining functional state. I expressed to them that in general, after a hip fracture, even with surgical management, patients often times decrease 1 level of functional mobility. The patient is ordinarily a community ambulator with a cane, so I expressed to them that she may have to ambulate with the use of a walker more regularly following this injury. They expressed understanding to all of this. This patient's fracture does appear to be a basicervical variant, as such my recommendation would be for cephalomedullary nailing with open versus closed reduction. The patient was seen and cleared by the medical team prior to operative intervention. Description of Procedure after informed consent was obtained, the patient was correctly identified in the preoperative holding suite, the operative site was marked with the surgeon's initials, the date of surgery, and the word yes. The patient was then taken to the operative suite. The department of anesthesia administered General anesthesia. The patient was transferred from the [facility] to the operative table. All bony prominences were well-padded. Briefing and timeout was performed. All implants were available and sterile at the time. BRIEFING AND DEBRIEFING: Pre and post operative briefing and debriefing was performed. Introductions were made, goals of the procedure were discussed, questions and concerns were addressed. The operative site markings were identified and appropriate. A time [id number] was performed, the patient's correct identity was confirmed and the correct operative sites were identified. The patients pre-operative antibiotic dosing and administration was confirmed along with other SCIP measures. The team was polled at the completion of the surgery and all team members were in agreement that the procedure was without complication, the counts are correct, the wound class was identified and suggestions for improvement were shared. The patient was positioned appropriately on the fracture table with all bony prominences well-padded. The ipsilateral arm was draped across the chest and well-padded. Traction, and internal rotation were applied to the left lower extremity and prior to prepping and draping the C arm was used to ensure appropriate reduction. Once an appropriate reduction was achieved, we proceeded to prep and drape the left lower extremity in standard sterile fashion using an [place] shower curtain and ChloraPrep. We then marked out the anatomy of the proximal femur including the tip of the greater trochanter as well as the intended trajectory of the lag bolt. We made an incision approximately 3 cm in length that was 2 cm proximal to the tip of the greater trochanter in line with the femoral shaft on the lateral view. We dissected bluntly through the gluteal fascia down to the tip of the greater trochanter. At the tip of the greater trochanter we placed the starting wire and under fluoroscopy advanced it into the proximal femur. We checked its position on fluoroscopy both AP and lateral views and when we were satisfied, we introduced the opening reamer into the proximal femur. We then removed the starting wire and placed the long ball- tipped guidewire. Given the patient's short stature, she did have a aggressive femoral bow, as such we could not obtain an appropriate distal endpoint for a long nail, so as such we selected the largest diameter short nail available to us. This ended up being the 12 mm x 170 mm x 130 degree TFNA Synthes cephalomedullary nail. We fixed the nail onto the insertion jig and advanced it under fluoroscopy into the femur. We impacted it until the level was appropriate such that our lag screw would end in the head. We then made an incision on the side of the leg to introduce the targeting jig for the lag bolt. Due to constraints with our fracture table, the fracture tended into slight varus, so an open reduction was necessary at this point. We extended our lateral incision and then introduced the [place] elevator over the proximal femur to a free it of adherent soft tissue's in that area. We then took the same trajectory using our bone hook, grabbed the inferior calcar and pulled laterally such that the calcar was appropriately reduced. We held this reduction while we adjusted the trajectory of the targeting jig for the lag bolt such that the wire would be advanced into the femoral head and a low center center position. We did this under fluoroscopy. We then measured the guidewire and selected an appropriately sized lag screw. This ended up being 95 mm in length. We maintained the reduction with the bone hook and in order to prevent torquing of the fracture being that is was a basicervical variant, we placed an additional stabilizing K wire outside of the nail holding the fracture together. We then drilled for and placed the 95 mm lag bolt over the guidewire. We then compressed through the nail and secured the locking knot proximally such that it could allow some controlled collapse. We removed the bone hook and the separate reduction maintaining wire and were satisfied with our proximal fixation. We then turned our attention distally towards the interlocking screw. Through the targeting jig, we drilled for and placed an appropriately sized interlocking screw distally. The targeting jig was then removed final fluoroscopic images were then obtained, and we were satisfied with our fixation. We thoroughly irrigated all the wounds, closed the deep fascia and the IT band with 0 Vicryl suture followed by 2-0 Vicryl suture in the subcutaneous tissue and a running 3- 0 Monocryl in the subcuticular tissue. The wounds were closed with glue, covered with Acticoat Flex, and a sterile dressing was applied The patient tolerated this procedure well and was transferred to the PACU in stable condition. Prior to transportation to PACU, all counts were correct and a briefing was performed at the end of the case. Physician-directed fluoroscopy for greater than one hour was performed by myself to verify fracture alignment and the safe placement of all internal fixation. The final images saved to PACs showed views demonstrating satisfactory alignment of the fracture and stable internal fixation. Implant verification was performed by myself by reading and confirming the implant information on the packaging with the team before the sterile implants were opened. I was present for the entire procedure. Plan: Weight bearing status: weightbearing as tolerated left lower extremity Wound care: keep dressing clean and dry Range of motion: as tolerated VTE Prophylaxis: okay from an orthopedic standpoint Antibiotics: perioperative Ancef Pain Control: Multimodal Vitamin D Replacement: labs pending Discharge Plan: pending PT/OT Follow Up: with myself in 2 weeks implants: Synthes TFN alpha cephalomedullary nail 12 mm x 170 mm 130 degrees Synthes TFN alpha lag bolt: 95 mm Synthes 5 mm x 40 mm interlocking screw distally I attest to the content of the Intraoperative Record and any orders documented therein. Any exceptions are noted below.
[2024-06-15] MEDS: ACETAMINOPHEN 500 MG TAB PO SCH (11:02)
[2024-06-15] MEDS: DOCUSATE SODIUM/SENNA 50/8.6MG TAB PO SCH (11:11)
--- NOTE | 2024-06-15 11:40 | Orthopedic Progress Note ---
Date of Service June 15, 2024 Assessment & Plan (1) Closed left hip fracture: (2) Osteoporosis: (3) Vitamin D deficiency: (4) Coronary artery disease: (5) History of gastric bypass: (6) History of adenomatous polyp of colon: (7) Diabetic retinopathy: (8) Carotid artery plaque: (9) Hypertension: (10) Mitral regurgitation: Plan This is a 79-year-old female who is postoperative day #1 status post open reduction cephalomedullary nailing of left hip for left basicervical femoral neck fracture. Overall, the patient is doing very well. Her dressing did have some mild strikethrough noted, as such I applied a corona dressing today. Patient will be seen and evaluated with physical therapy and Occupational Therapy to determine an appropriate discharge plan. She is weightbearing as tolerated on her left lower extremity. She is okay for all range of motion. She is okay from an orthopedic standpoint for DVT prophylaxis. I will plan to see the patient in the office in about 2 weeks for wound check. Admission and Anticipated Discharge Date Admission Date: June 14, 2024 Subjective 79-year-old female postoperative day #1 status post open reduction cephalomedullary nailing of left hip for left basicervical femoral neck fracture. Overall, patient doing well. Some mild drainage noted on surgical wounds. Review of Systems Review of Systems: All systems reviewed & are unremarkable except as noted in HPI & below Physical Exam Physical Exam: Mild strikethrough noted on surgical wound. Sensation tact light touch L2-S1. Mild tenderness to palpation. Mild pain with hip range of motion. Pulses equal and intact Results & Data Vital Signs (Past 12 Hours) Vital Signs Temp Pulse Resp BP Pulse Ox O2 Del Method 06/15/24 11:23 36.9 C 90 17 149/83 H 99 Room Air 06/15/24 08:09 36.6 C 89 17 96/61 L 97 Room Air 06/15/24 03:06 36.4 C L 100 H 16 105/66 95 Room Air 06/14/24 23:53 36.6 C 102 H 17 115/64 95 Room Air Diagnostic Findings postoperative imaging reviewed And personally interpreted demonstrate stable internal fixation of left hip. No acute complications noted with hardware. (4) Coronary artery disease Coronary Disease-Associated Artery/Lesion type: [place] artery [place] vs. transplanted heart: [place] heart Associated angina: without angina Qualified Code(s): I25.10 - Atherosclerotic heart disease of [place] coronary artery without angina pectoris (8) Carotid artery plaque Laterality: bilateral Qualified Code(s): I65.23 - Occlusion and stenosis of bilateral carotid arteries (9) Hypertension Hypertension type: primary hypertension Qualified Code(s): I10 - Essential (primary) hypertension
[2024-06-15] MEDS: ACETAMINOPHEN 325 MG TAB PO SCH (14:55)
[2024-06-15] MEDS: cefTRIAXone SODIUM 1,000 MG/50 ML BAG IV SCH (14:55)
[2024-06-15] MEDS ORDERED: GLUCAGON FOR INJ 1 MG VIAL SQ PRN (16:59)
[2024-06-15] MEDS ORDERED: CARBOHYDRATES FOR HYPOGLYCEMIA PO PRN (16:59)
[2024-06-15] MEDS ORDERED: DEXTROSE 50% 50 ML SYRINGE IV PRN (16:59)
[2024-06-15] MEDS ORDERED: GLUCOSE 40% GEL 15 GM TUBE PO PRN (16:59)
[2024-06-15] MEDS ORDERED: GLUCOSE 10 TAB/TUBE PO PRN (16:59)
[2024-06-15] MEDS: APIXABAN 2.5 MG TAB PO SCH (21:15)
[2024-06-15] MEDS: INSULIN ASPART PER UNIT CHARGE SC SCH (21:15)
[2024-06-15] MEDS: ASPIRIN 81 MG ECTAB PO SCH (21:15)
[2024-06-16] MEDS: oxyCODONE HCL IR 5 MG TAB (IMMEDIATE RELEASE) PO PRN (00:01)
[2024-06-16 07:04] LABS: Basophils # (auto) 0.02 K/uL (0.00-0.20); Basophils % (auto) 0.4 %; Eosinophils # (auto) 0.24 K/uL (0.00-0.50); Eosinophils % (auto) 4.3 %; Hematocrit (blood only) 34.2 % (37.0-47.0); Hemoglobin 11.2 g/dl (12.0-16.0); Immature Granulocytes # (auto) 0.02 K/uL (0.01-0.20); Immature Granulocytes % (auto) 0.4 %; Lymphocytes # (auto) 1.29 K/uL (1.20-3.40); Lymphocytes % (auto) 23.2 %; Mean Corpuscular Hemoglobin 32.2 pg (25.0-34.0); Mean Corpuscular Hgb Conc 32.7 g/dL (32.0-36.0); Mean Corpuscular Volume 98.3 fL (80.0-100.0); Mean Platelet Volume 10.3 fL (9.4-12.4); Monocytes # (auto) 0.55 K/uL (0.11-0.59); Monocytes % (auto) 9.9 %; Neutrophils # (auto) 3.45 K/uL (1.40-6.50); Neutrophils % (auto) 61.8 %; Platelet Count 176 K/uL (130-400); RDW Coefficient of Variation 13.2 % (11.5-14.5); RDW Standard Deviation 46.8 fL (36.4-46.3); Red Blood Count 3.48 M/uL (4.20-5.40); White Blood Count 5.57 K/ul (4.8-10.8)
[2024-06-16 07:32] LABS: BUN Creatinine Ratio 46.8 (10-20); Calcium 8.4 mg/dl (8.6-10.3); Creatinine Clr Calc Pharmacy 65.5 ml/min
[2024-06-16 07:49] LABS: Folate (Folic Acid),Ser orPlas 22.2 ng/ml (>5.38)
[2024-06-16] MEDS: CHOLECALCIFEROL 125 MCG (5,000 UNITS) TAB PO SCH (08:49)
--- NOTE | 2024-06-16 09:18 | Orthopedic Progress Note ---
Date of Service June 16, 2024 Assessment & Plan (1) Closed left hip fracture: (2) Osteoporosis: (3) Vitamin D deficiency: (4) Coronary artery disease: (5) History of gastric bypass: (6) History of adenomatous polyp of colon: (7) Diabetic retinopathy: (8) Carotid artery plaque: (9) Hypertension: (10) Mitral regurgitation: Plan This is a 79-year-old female who is postoperative day #2 status post open reduction cephalomedullary nailing of left hip for left basicervical femoral neck fracture. Overall, the patient is doing very well. Her corona is functioning appropriately. Patient will be seen and evaluated by physical therapy and Occupational Therapy to determine an appropriate discharge plan. She is weightbearing as tolerated on her left lower extremity. She is okay for all range of motion. She is okay from an orthopedic standpoint for DVT prophylaxis. I will plan to see the patient in the office in about 2 weeks for wound check. Admission and Anticipated Discharge Date Admission Date: June 14, 2024 Subjective patient resting comfortably. hasnt done much walking yet. notes her hip feels good today. Review of Systems Review of Systems: All systems reviewed & are unremarkable except as noted in HPI & below Physical Exam Physical Exam: Corona dressing functioning appropriately. Sensation intact to light touch L2-S1. Foot warm and well-perfused Results & Data Vital Signs (Past 12 Hours) Vital Signs Temp Pulse Pulse Resp BP Pulse Ox O2 Del Method 06/16/24 07:40 36.5 C 76 18 125/74 98 Room Air 06/16/24 04:09 36.6 C 71 71 18 112/81 99 Room Air (4) Coronary artery disease Coronary Disease-Associated Artery/Lesion type: [place] artery [place] vs. transplanted heart: [place] heart Associated angina: without angina Qualified Code(s): I25.10 - Atherosclerotic heart disease of [place] coronary artery with out angina pectoris (8) Carotid artery plaque Laterality: bilateral Qualified Code(s): I65.23 - Occlusion and stenosis of bilateral carotid arteries (9) Hypertension Hypertension type: primary hypertension Qualified Code(s): I10 - Essential (primary) hypertension
--- NOTE | 2024-06-16 11:11 | Hospitalist Progress Note ---
Date of Service June 16, 2024 Assessment & Plan (1) Closed left hip fracture: (2) UTI (urinary tract infection): (3) Hypertension: (4) Diabetes mellitus, type 2: Plan 79-year-old female who had a fall without evidence of seizure or presyncope, patient has felt slightly more weak than normal likely related to her UTI. CT head showing no acute findings. CT pelvis showing acute left femoral neck fracture with old left public rami fractures. She underwent Left hip open reduction with cephalomedullary nailing with Dr. Deleon on 06/14. #Fall resulting in Left Hip Fracture Orthopedic consulted. S/P operative repair with Dr. Deleon 06/14. outpatient follow-up in 2 weeks Pain control: scheduled tylenol, prn oxycodone Bowels: scheduled senna, PRN miralax DVT: Eliquis 2.5 mg twice daily per discussion with Dr. Deleon PT/OT - recommend rehab, CM following Vitamin D -8, high dose supplementation started, continue outpatient treatment for osteopetrosis (received Reclast 08/03/2023) #UTI UA infected appearing, pt with frequent UTIs due to bladder prolapse. Tried pessary w/o relief. UC: castro sensitive e.coli - Continue Rocephin, transition to PO at discharge #CAD, hypertension, hyperlipidemia History of triple CABG 2020 at [facility] [place]. Continue rosuvastatin, metoprolol succinate 25 mg, ASA 81mg Resume losartan. Dapagliflozin held. Orthostatic VS not positive today, but hypotensive during. Continue to hold lasix (pt does not take daily). Encourage PO #Type II DM Hold Trulicity (last dose 06/06) . Cont SSI while admitted BSG acceptable #GERD/hx of gastric bypass: Continue Pepcid, and PPI B12, folate WNL DVT prophylaxis: Eliquis 2.5 mg twice daily Disposition: continued inpatient stay treating UTI, awaiting rehab, give miralax today Admission and Anticipated Discharge Date Admission Date: June 14, 2024 Subjective patient seen lying in bed, has been out of bed today to get washed up. not walking yet, but pain is more controlled no BM yet poor oral intake at baseline 2/2 reflux. feels like she is at her baseline Review of Systems Review of Systems: All systems reviewed & are unremarkable except as noted in Subjective Physical Exam Physical Exam: General: NAD, VS as above Resp: normal respiratory effort, lungs clear to auscultation CV: RRR, no murmur, Abd: normal bowel sounds, non tender, Soft Extremities: Moves all extremities, left hip dressing c/d/i Neuro: A&O x3, Skin: intact, no lesions noted Results & Data Results & Data Vital Signs (Past 12 Hours) Vital Signs Temp Pulse Pulse Resp BP Pulse Ox O2 Del Method 06/16/24 07:40 97.7 F 76 18 125/74 98 Room Air 06/16/24 04:09 97.9 F 71 71 18 112/81 99 Room Air Laboratory Results cbc and chemistry reviewed PG Care Time/CCT Total # of Minutes Spent Total Time Spent with Patient: Total time spent is greater than 50% in coordination of care (as documented) at patient's floor/unit and/or counseling patient: Coding Level of Care Code 40850 SUB INP/OBS CARE 2/35MIN Diagnoses Closed left hip fracture S72.002A UTI (urinary tract infection) N39.0 Primary hypertension I10 Hypertension type: primary hypertension Diabetes mellitus, type 2 E11.9 (3) Hypertension Hypertension type: primary hypertension Qualified Code(s): I10 - Essential (primary) hypertension
[2024-06-16] MEDS: POLYETHYLENE (MIRALAX) 17 GM PACK PO PRN (11:26)
--- NOTE | 2024-06-17 09:36 | Hospitalist Progress Note ---
Date of Service June 17, 2024 Assessment & Plan (1) Closed left hip fracture: (2) UTI (urinary tract infection): (3) Hypertension: (4) Diabetes mellitus, type 2: Plan 79-year-old female who had a fall without evidence of seizure or presyncope, patient has felt slightly more weak than normal likely related to her UTI. CT head showing no acute findings. CT pelvis showing acute left femoral neck fracture with old left public rami fractures. She underwent Left hip open reduction with cephalomedullary nailing with Dr. Deleon on 06/14. #Fall resulting in Left Hip Fracture Orthopedic consulted. S/P operative repair with Dr. Deleon 06/14. outpatient follow-up in 2 weeks Pain control: scheduled tylenol, prn oxycodone Bowels: scheduled senna, PRN miralax - give 06/16 and 2 DVT: Eliquis 2.5 mg twice daily per discussion with Dr. Deleon PT/OT - recommend rehab, CM following Vitamin D -8, high dose supplementation started, continue outpatient treatment for osteopetrosis (received Reclast 08/03/2023) #UTI UA infected appearing, pt with frequent UTIs due to bladder prolapse. Tried pessary w/o relief. UC: castro sensitive e.coli - Continue Rocephin, transition to PO at discharge #CAD, hypertension, hyperlipidemia History of triple CABG 2020 at [facility] [place]. Continue rosuvastatin, metoprolol succinate 25 mg, ASA 81mg Resume losartan. Dapagliflozin held. Orthostatic VS not positive today, but hypotensive during. Continue to hold lasix (pt does not take daily). Encourage PO #Type II DM Hold Trulicity (last dose 06/06) . Cont SSI while admitted BSG acceptable #GERD/hx of gastric bypass: Continue Pepcid, and PPI. Declines carafate. B12, folate WNL DVT prophylaxis: Eliquis 2.5 mg twice daily Disposition: continued inpatient stay treating UTI, awaiting rehab, give again miralax today Admission and Anticipated Discharge Date Admission Date: June 14, 2024 Subjective patient seen lying in bed, daughter present at bedside. multiple questions answered regarding her likelihood to break bones in the future. Pt with poor PO intake 2/2 GERD, declines carafate and declines nutritional supplements. no BM yet awaiting rehab Review of Systems Review of Systems: All systems reviewed & are unremarkable except as noted in Subjective Physical Exam Physical Exam: General: NAD, VS as above Resp: normal respiratory effort, lungs clear to auscultation CV: RRR, no murmur, Abd: normal bowel sounds, non tender, Soft Extremities: Moves all extremities, left hip dressing c/d/i Neuro: A&O x3, Skin: intact, no lesions noted Results & Data Results & Data Vital Signs (Past 12 Hours) Vital Signs Temp Pulse Resp BP Pulse Ox O2 Del Method 06/17/24 07:47 97.7 F 78 16 111/74 98 Room Air Laboratory Results POC BSG reviewed PG Care Time/CCT Total # of Minutes Spent Total Time Spent with Patient: Total time spent is greater than 50% in coordination of care (as documented) at patient's floor/unit and/or counseling patient: Coding Level of Care Code 30800 SUB INP/OBS CARE 2/35MIN Diagnoses Closed left hip fracture S72.002A UTI (urinary tract infection) N39.0 Primary hypertension I10 Hypertension type: primary hypertension Diabetes mellitus, type 2 E11.9 (3) Hypertension Hypertension type: primary hypertension Qualified Code(s): I10 - Essential (primary) hypertension
[2024-06-18] MEDS: bisacodyL 10 MG SUPP PR STA (10:50)
--- NOTE | 2024-06-18 12:59 | Hospitalist Progress Note ---
Date of Service June 18, 2024 Assessment & Plan (1) Closed left hip fracture: Plan: Orthopedic consulted. S/P operative repair with Dr. Deleon 06/14. outpatient follow-up in 2 weeks Pain control: scheduled tylenol, prn oxycodone Bowels: scheduled senna, PRN miralax - give 06/16 and 06/17 - no resultant BM, give a bisacodyl supp 10mg x1 DVT: Eliquis 2.5 mg twice daily per discussion with Dr. Deleon PT/OT - recommend rehab, CM following Vitamin D -8, high dose supplementation started, continue outpatient treatment for osteopetrosis (received Reclast 08/03/2023) (2) UTI (urinary tract infection): Plan: UA infected appearing, pt with frequent UTIs due to bladder prolapse. Tried pessary w/o relief. UC: castro sensitive e.coli - Continue Rocephin, transition to PO at discharge (3) Hypertension: Plan: #CAD, hypertension, hyperlipidemia History of triple CABG 2020 at [facility]. Continue rosuvastatin, metoprolol succinate 25 mg, ASA 81mg Resume losartan. Dapagliflozin held. Orthostatic VS not positive today, but hypotensive during. Continue to hold lasix (pt does not take daily). Encourage PO (4) Diabetes mellitus, type 2: Plan: Hold Trulicity (last dose 06/06) . Cont SSI while admitted BSG acceptable Plan #GERD/hx of gastric bypass: Continue Pepcid, and PPI. Declines carafate. B12, folate WNL DVT prophylaxis: Eliquis 2.5 mg twice daily Disposition: continued inpatient stay treating UTI, awaiting rehab--> referrals sent to [facility] and [facility]. Medically stable for discharge once auth received/bed available. Family updated. Give bisacodyl supp today. No need for f/u labs. Plan d/w Dr. Shelton. Admission and Anticipated Discharge Date Admission Date: June 14, 2024 Lizette Ramon is a pleasant 79 yo F who is seen today on daily rounds. She is resting comfortably in bedside chair and is accompanied by her family. Her pain in her left hip is adequately controlled, she denies chest pain or dyspnea. She has not had a normal BM since before her admission. She denies n/v. She is eating/drinking well. No other concerns. Review of Systems Review of Systems: All systems reviewed and are unremarkable except as noted in HPI and below. Denies fever, chills, fatigue, headache, nasal congestion, sore throat, cough, chest pain, shortness of breath, palpitations, orthopnea, PND, abdominal pain, n/v/d, constipation, dysuria, hematuria, frequency, back pain, easy bruising or bleeding, skin lesions or rashes. Physical Exam Physical Exam: GENERAL: 79 yo thin frail elderly F. Awake, alert, oriented. No distress. LUNGS: Clear to auscultation bilaterally. No W/R/R. CARDIOVASCULAR: Regular rate and rhythm. ABDOMEN: Soft, non-tender and non-distended. BS normoactive x 4 quad. EXTREMITIES: No edema. Non-tender. Peripheral pulses +2/4. CARI to left hip. Dressing dry. Neg sixto's. No calf tenderness on left. SKIN: Warm, dry, intact. No rashes or lesions. Results & Data Results & Data Vital Signs (Past 12 Hours) Vital Signs Temp Pulse Resp BP Pulse Ox O2 Del Method 06/18/24 07:21 36.5 C 73 18 97/57 L 96 Room Air PG Care Time/CCT Total # of Minutes Spent Total Time Spent with Patient: Total time spent is greater than 50% in coordination of care (as documented) at patient's floor/unit and/or counseling patient: 36 minutes Coding Level of Care Code 02360 SUB INP/OBS CARE 2/35MIN Diagnoses Closed left hip fracture S72.002A UTI (urinary tract infection) N39.0 Primary hypertension I10 Hypertension type: primary hypertension Diabetes mellitus, type 2 E11.9 (3) Hypertension Hypertension type: primary hypertension Qualified Code(s): I10 - Essential (primary) hypertension
[2024-06-18 15:25] VITALS: O2SAT 95
[2024-06-18 19:54] VITALS: TEMP 98.2
[2024-06-19 07:09] VITALS: BP 103/66; PULSE 75; RESP 16
--- NOTE | 2024-06-19 08:54 | Hospitalist Progress Note ---
Date of Service June 19, 2024 Assessment & Plan (1) Closed left hip fracture: Plan: Orthopedic consulted. S/P operative repair with Dr. Deleon 06/14. outpatient follow-up in 2 weeks Pain control: scheduled tylenol, prn oxycodone Bowels: scheduled senna, PRN miralax - give 06/16 and 06/17 - no resultant BM, give a bisacodyl supp 10mg x1. +BM 06/19 DVT: Eliquis 2.5 mg twice daily per discussion with Dr. Deleon PT/OT - recommend rehab, CM following Continue HIGH dose vit d at [place] B12 also low normal 255--> will place on PO supp/continue at dc (2) UTI (urinary tract infection): Plan: UA infected appearing, pt with frequent UTIs due to bladder prolapse. Tried pessary w/o relief. UC: castro sensitive e.coli - Continue Rocephin, transition to PO at discharge Today will be day 5 of treatment, will discontinue further dosing. Monitor for diarrhea (3) Hypertension: Plan: #CAD, hypertension, hyperlipidemia History of triple CABG 2020 at [facility]. Continue rosuvastatin, metoprolol succinate 25 mg, ASA 81mg Resume losartan. Dapagliflozin held. Orthostatic VS not positive today, but hypotensive during. Continue to hold lasix (pt does not take daily). Encourage PO (4) Diabetes mellitus, type 2: Plan: Hold Trulicity (last dose 06/06) . Cont SSI while admitted BSG acceptable (5) Vitamin D deficiency: Plan: Vitamin D -8, high dose supplementation started, continue outpatient treatment for osteopetrosis (received Reclast 08/03/2023) Plan #GERD/hx of gastric bypass: Continue Pepcid, and PPI. Declines carafate. B12, folate WNL DVT prophylaxis: Eliquis 2.5 mg twice daily Disposition: continued inpatient stay treating UTI, awaiting rehab--> referrals sent to [facility] and [facility]. Medically stable for discharge once auth received/bed available. Family updated. Give bisacodyl supp today. No need for f/u labs. Plan d/w Dr. Shelton. Admission and Anticipated Discharge Date Admission Date: June 14, 2024 Subjective Eval this morning, sitting up in bed. Pain improving daily, controlled with ordered medications. Reports + BM last evening. Reports approved for [facility], will f/u with CM about bed when available. No fever/chills, chest pain, shortness of breath, nausea/vomiting at this time. No lightheaded/dizziness. Results & Data Results & Data Vital Signs (Past 12 Hours) Vital Signs Temp Pulse Resp BP Pulse Ox O2 Del Method 06/19/24 07:08 36.8 C 75 16 103/66 95 Room Air PG Care Time/CCT Total # of Minutes Spent Total Time Spent with Patient: Total time spent is greater than 50% in coordination of care (as documented) at patient's floor/unit and/or counseling patient: Coding Diagnoses Closed left hip fracture S72.002A UTI (urinary tract infection) N39.0 Primary hypertension I10 Hypertension type: primary hypertension Diabetes mellitus, type 2 E11.9 Vitamin D deficiency E55.9 (3) Hypertension Hypertension type: primary hypertension Qualified Code(s): I10 - Essential (primary) hypertension
[2024-06-19] MEDS: CYANOCOBALAMIN (B-12) 500 MCG TABLET PO SCH (09:51)
[2024-06-19 09:53] LABS: Hematocrit (blood only) 40.3 % (37.0-47.0); Hemoglobin 12.8 g/dl (12.0-16.0); Mean Corpuscular Hemoglobin 31.7 pg (25.0-34.0); Mean Corpuscular Hgb Conc 31.8 g/dL (32.0-36.0); Mean Corpuscular Volume 99.8 fL (80.0-100.0); Mean Platelet Volume 9.7 fL (9.4-12.4); Platelet Count 311 K/uL (130-400); RDW Standard Deviation 48.2 fL (36.4-46.3); Red Blood Count 4.04 M/uL (4.20-5.40)
--- NOTE | 2024-06-19 10:07 | Discharge Summary ---
Discharge Summary Date of Service June 19, 2024 Principal Dx & Hospital Course #1 = Principal Diagnosis (1) Closed left hip fracture: 79-year-old female with past medical history of hypertension, esophageal dysphagia, lower extremity edema, candidiasis, type 2 diabetes presented after ground level fall with associated weakness (also found to have UTI) with left hip pain and imaging noting Acute left femoral neck fracture along with Intertr ochanteric fracture proximal left femur Orthopedics consulted, Dr Deleon s/p Left hip open reduction; cephalomedullary nailing for left hip fracture (Left) - Avinash Deleon DO on 06/15 EBL 200cc Patient was provided with pain control/bowel regimen (suppository on 06/18 w/ +BM reported prior to dc) with adequate pain control Was found to have LOW Vitamin D/Vitamin D deficiency with level 8.6 and placed on high dose replacement/continued at ma Also notable B12 low normal at 255 and PO supplementation started/continued at ma +UA/urine cx pansensitive ecoli and completed 5 days Ceftriaxone prior to dc, no need for ongoing abx at ma PT/OT rec for rehab, CM arranged for [facility] at ma. WB as tolerated w/ walker per Dr Deleon, continues on eliquis 2.5mg mg BID x 6 wks for DVT prophylaxis and rec for f/u 2 weeks orthopedics at ma (2) UTI (urinary tract infection): As above, urine cx pansensitive ecoli/completed Ceftriaxone x 5 days inpatient/no need for ongoing abx at ma. Recs to hold jardiance at ma given recurrent/frequent UTIs w/ her hx bladder prolapse until discussed w/ PCP (3) Diabetes mellitus, type 2: Hold jardiance (last dose 06/06) and continued SSI while inpatient. Also notable her ozempic was held (did move bowels prior to dc but cautious to resume until normalized) As above, would consider switching Jardiance in f/u with PCP if ongoing issues w/ UTIs. (4) Vitamin D deficiency: Vitamin D -8, high dose supplementation started, continue outpatient treatment for osteopetrosis (received Reclast 08/03/2023) Plan #GERD/hx of gastric bypass: Continued Pepcid, and PPI. Declines Carafate. B12, folate WNL however as above B12 low normal and give hx bypass did start 500mcg PO daily and continued at dc DVT prophylaxis: Eliquis 2.5 mg twice daily x 6 wks per orthopedics Dc to [facility] when ride/transportation available, outpt ortho f/u 2 weeks Notes For Next Care Provider Monitor for any bleeding on eliquis for DVT prophlyaxis, but continues on pepcid BID/PPI once daily at this time. Hgb stable/improved on repeat check/no bleeding reported F/u orthopedics in 2 weeks Completed 5 days IV ceftriaxone inpatient, monitor for any diarrhea. rec to hold off resumption of ozempic until regular BMs -Please discuss continuing Jardiance or if alternative medication better w/ her UTIs Medication Changes From Visit Eliquis 2.5mg PO BID x 6 wks for DVT proph Hold Jardiance until f/u PCP, Ozempic rec to hold until moving bowels regularly. ?if should be on this w/ her hx gastric bypass Lasix to resume 2/5 Vitamin D PO daily B12 500mcg PO daily Admission HPI Per Admitting Provider Yenny is a 79-year-old female with past medical history of hypertension, esophageal dysphagia, lower extremity edema, candidiasis, type 2 diabetes after a fall and was found to have hip fracture. Seen at bedside. REports she fell. Not sure why, has 'gotten my feet tangled' before with some weakness, but was not lightheaded or dizzy. Not sureif she tripped. No chest pain or chest pressure. No history of seizures or syncope. Has fallen from weakness and her legs giving out in the past. No recent illnesses. Denies URI symtpoms.Denies fever,chills. Does get chronic reflux symptoms. history of CAD s/p triple bipass. [place], no limiting chest pain or angima. No orthopnea Does get mild leg intermittent leg swelling, none currently or recently +nausea no vomiting no dirrhea/constipation no abdominal pain No longer on insulin Curently on trulicity, is pending switching to ozempic but has not yet done so. Takes trulicity weekly on , did not take this yesterday. Last took 8 days ago. Medical History: Reviewed Medications: Reviewed.Did not take any medications this morning Surgical History: Reviewed Family history: Reviewed Allergies: Reviewed. NKDA Social History:No tobacco use, rare social 3-4 day/wk ETOh use 1 drink in a sitting Code Status: DNR/DNI Admission Exam Per Admitting Provider General: A&Ox3. NAD. Cooperative. HEENT: Atraumatic, normocephalic. Vision/hearing intact Pulm: CTAB A&P. -wheezes, -rales, -rhonchi. Symmetrical chest rise. No increased work of breathing. No respiratory distress. Cardiac: RRR, -mrg. Radial pulses intact and symmetrical. Abdominal: Nontender, nondistended, soft. BS present. Ext: warm, dry. No edema. Wiggles toes bilat. PT pulse intact bilat. L leg slightly extrenally rotated. L hip TTP at anterior/lateral hip Discharge Exam General: 79yo female sitting up in bed, NAD, pain controlled/awaiting rehab HEENT: head atraumatic, normocephalic, mmm, trachea midline Resp: even/unlabored, no wheezing/rales, on room air 95% CV: RRR, no significant m/r/g, no pitting edema/calf tenderness, pulses present GI: +BS, soft/less distension, no overt tenderness/guarding : no jane MSK/Neuro: dressing to LEFT hip c/d/i, slight edema but no overt tenderness/erythema/drainage, sensation intact, toes mobile, cap refill wnl Psych: AOx3, cooperative with exam Discharge Plan Discharge Items Patient Disposition: Transfer Inpatient Rehab Fac Reason For Visit: L HIP FXR Discharge Diagnosis: Left hip fracture Goals: You have been hospitalized for an urgent problem which required surgery. During your stay at [facility], we have made an effort to correct the problem that brought you to the hospital while keeping you as comfortable as possible. Surgery and medications were used to bring your condition under control and your discharge instructions will include directions for any medications you should take after leaving the hospital. Please make sure to follow the advice of your surgeon regarding follow up with the surgeon and with your primary care provider. Activity: As commented below Activity Comment: weight bearing as tolerated with walker Non-emergency contact: Primary Care Provider and Surgeon Call non-emergency contact if: you have any medication questions, your symptoms worsen, your pain is not controlled, your pain is worsening, your pain is unusual for you and you have a fever Follow-up/Referrals: Caden Ceja MD [Primary Care Provider] - Avinash Deleon DO [Surgeon] - Diet: Carb Consistent or DM2 and Heart Healthy Addtl Attending Provider Instructions: You have been hospitalized for a hip fracture. Orthopedics was consulted and you underwent repair. You should have follow up with orthopedics, Dr Deleon, in 2 weeks from surgery for check. Your vitamin D level was checked and LOW -- Vitamin D supplementation was started/continued at discharge. B12 supplementation (low normal 255) was also started/continued. For blood clot prevention, you were started on Eliquis 2.5mg twice daily and t his will be for 6 weeks. Pain control: tylenol and as needed oxycodone 2.5mg as needed. Please continue bowel regimen to prevent constipation. Would also recommend waiting until bowel movements are more regular before resuming semaglutide as this can cause constipation as well. You also completed a course of antibiotics for urinary tract infection and do not need any further ongoing antibiotics at discharge. HOLD YOUR JARDIANCE FOR NOW GIVEN FREQUENT UTIS UNTIL DISCUSSED WITH PRIMARY CARE IN FOLLOW UP. Please follow up with primary care in the next 7-10 days to monitor your status and coordinate your care. Please return to the ER with any increased pain/swelling/redness or for any other symptoms concerning for you. It has been a pleasure being a part of the medical team providing for you while you have been in the hospital. Take care! Pending Studies at Discharge: No Stand-Alone Forms: [facility] Skilled Items Patient informed of condition?: Yes DNR: Yes Discharge Level of Care: Acute rehab Communicable Disease: No Discharge Prognosis: Stable Lines: None Urinary Catheter: No Medications and DC Order Prescriptions: New Eliquis 2.5 mg Tablet 2.5 mg PO BID 42 Days Qty: 84 0RF cyanocobalamin (vitamin B-12) 500 mcg Tablet 500 mcg PO QAM Qty: 30 0RF cholecalciferol (vitamin D3) 125 mcg (5,000 unit) Tablet 125 mcg PO QAM Qty: 30 0RF Continued aspirin [Adult Low Dose Aspirin] 81 mg tablet,delayed release (DR/EC) 81 mg PO QPM acetaminophen 500 mg capsule 1,000 mg PO Q6H PRN (Reason: Pain) multivitamin with minerals Tablet 1 tab PO QAM famotidine 20 mg tablet 20 mg PO BID Qty: 60 11RF zoledronic [id number] [Reclast] 5 mg/100 mL piggyback See Rx Instructions IV ONCE Qty: 100 0RF Rx Instructions: 5 mg intravenously once; metoprolol succinate 25 mg tablet extended release 24 hr 25 mg PO QAM Qty: 30 11RF Hold Instructions: Orthostatic symptoms nitroglycerin [Nitrostat] 0.4 mg tablet, sublingual 0.4 mg sublingual UD PRN (Reason: chest pain) Qty: 25 0RF Hold Instructions: Patient states this was prescribed for prior to her surgery losartan 25 mg tablet 25 mg PO DAILY Qty: 90 3RF Hold Instructions: Orthostatic symptoms rosuvastatin 20 mg tablet 20 mg PO QAM Qty: 90 3RF dexlansoprazole [Dexilant] 60 mg capsule,biphase delayed releas 60 mg PO QAM Qty: 90 3RF ondansetron HCl 4 mg tablet 4 mg PO Q8H PRN (Reason: nausea and vomiting) Qty: 90 11RF furosemide 20 mg tablet 20 mg PO DAILY Qty: 30 5RF oxycodone-acetaminophen 5-325 mg tablet 1 tab PO Q6H PRN (Reason: pain) 3 Days Qty: 24 0RF nystatin 100,000 unit/gram powder 1 applic topical BID PRN (Reason: Other) semaglutide 1 mg/dose (4 mg/3 mL) pen injector 1 mg subcut WK Rx Instructions: last took week ago 1 mg subcutaneously once weekly; metoclopramide HCl 5 mg tablet 5 mg PO UD Rx Instructions: 5 mg orally before meals and at bedtime; Held empagliflozin 25 mg tablet 25 mg PO QAM Qty: 90 3RF Hold Instructions: Provider's Order - hold until discussed with PCP given UTI hx to prevent recurrance No Action (DME) OneTouch Ultra Test Strip See Rx Instructions .Route Qty: 100 3RF Rx Instructions: Test 4x daily Discharge Orders: Discharge Order (Routine); Ordered 06/19/24 Ordered By: Mary Wheeler Admission Data Admit Date/Time: 06/14/24 17:01 Attending Provider: Gaudencio Gooden Admit Provider: Mitch Shelton Primary Care Provider: Caden Ceja Other Providers: Avinash Deleon; Mitch Shelton; [facility]; [place] Other Interventions: Discharge Summary Assessment (RN) Last Done: 06/19/24 12:51 Hospital Stay Data Consultations 06/14/24 15:42 Consult Orthopedic Surgery Stat ED Decision to Admit Stat Procedures Performed Operation Date: 06/14/24 07:00 Actual Procedures p Left hip open reduction; cephalomedullary nailing for left hip fracture (Left) - Avinash Deleon DO Diagnostic Imagining Performed Hip X-Ray 06/14/24 00:00 FL hip LT 2-3V CLINICAL HISTORY: LT TROCHNAIL COMPARISON STUDY: None FLUOROSCOPY TIME: 180 seconds FLUOROSCOPY IMAGES: 6 EXPOSURE DOSE: 17 mGy FINDINGS: Fluoroscopy was provided for short femoral gamma nail placement. IMPRESSION: Intraoperative fluoroscopy. ACT 112: Negative or not required by law. Electronically signed by: Juan Jose Ga M.D. 06/15/2024 8:[address] 06/14/24 00:00 Clinical history: Left hip pain after fall Technique: Axial computed tomography images were obtained of the pelvis without intravenous contrast Findings: There is an acute comminuted intertrochanteric fracture of the left femoral neck with mild displacement of fracture fragments. There is an old healed fracture of the left inferior pubic ramus. There is also suspected old healed fracture of the left superior pubic ramus. No focal osseous lesion is seen. There is a right hip total arthroplasty in expected position. 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 There are mild degenerative changes of the pubic symphysis. The sacroiliac joints appear unremarkable. There is no sign of osteomyelitis. There is scoliosis and degenerative disc disease of the visualized lumbar spine. The visualized musculature appears unremarkable. No soft tissue mass or fluid collection is seen The iliac arteries are of normal caliber. No adenopathy is noted. The visualized bowel appears unremarkable. No free intraperitoneal fluid or air is seen. There is air within the urinary bladder that could be due to recent catheterization Impression: 1. Acute left femoral neck fracture 2. Old left pubic rami fractures 3. Right hip replacement Electronically signed by Jose Whitehead 06-14-2024 4:10 PM Hip/Pelvis X-Ray 06/14/24 12:49 XR hip LT 2V w pelvis CLINICAL HISTORY: L hip pain s/p fall COMPARISON: 01/12/2013 FINDINGS: There is an intertrochanteric fracture of the proximal left femur. No additional acute injuries are identified. Patient is status post right total hip replacement. IMPRESSION: Intertrochanteric fracture proximal left femur. ACT 112: Negative or not required by law. Electronically signed by: Nicolasa Mathur M.D. 06/14/2024 1:56 PM Chest X-Ray 06/14/24 13:49 XR chest 1V not portable CLINICAL HISTORY: fracture preop COMPARISON STUDY: 04/15/2020 FINDINGS: Single view chest demonstrates no acute cardiopulmonary process. Evidence of prior coronary artery bypass surgery is present. Calcified granulomas are present in the lung maher and hilum. Calcified lymph node in the right axilla. The lung maher are clear. There is no pleural effusion or atelectasis. Heart size and pulmonary vascularity are unremarkable. Severe degenerative changes are present in the right shoulder. Multiple screws are present in the proximal left humerus. IMPRESSION: No acute process. ACT 112: Negative or not required by law. Electronically signed by: Nicolasa Mathur M.D. 06/14/2024 2:[address] 06/14/24 13:54 Clinical History: Fall Technique: Axial computed tomography images were obtained of the brain without intravenous contrast. Findings: There is diffuse cerebral atrophy, within expected limits for the patient's age. Areas of decreased attenuation are seen within the periventricular white matter, likely representing chronic small vessel ischemic disease. There is no definite sign of acute or old infarction. No intracranial hemorrhage is evident. No definite mass lesion is seen on this noncontrast examination. There is no midline shift or other form of herniation. No hydrocephalus is seen. No fracture is identified. The orbits and the visualized paranasal sinuses appear unremarkable. The mastoid air cells appear clear. Impression: 1. Cerebral atrophy and chronic small vessel ischemic disease 2. Otherwise unremarkable noncontrast CT of the brain Electronically signed by Jose Whitehead 06-14-2024 4:[address] 06/14/24 13:55 CT CERVICAL THORACIC LUMBAR SPINE WITHOUT CONTRAST: HISTORY: PAIN TECHNIQUE: Noncontrast CT examination of the cervical thoracic lumbar spine is performed. Coronal and sagittal reformats were created. COMPARISON: FINDINGS: CERVICAL SPINE: There is no significant vertebral body height loss. No acute traumatic fracture identified. There is no significant spondylolisthesis. Multilevel degenerative changes characterized by disc osteophyte complex, bilateral facet and uncovertebral hypertrophy resulting and neural foraminal narrowing at multiple levels, worst at mid to lower spine. Visualized soft tissues of neck are unremarkable. Visualized lung apex is clear. Calcified body measuring 1.9 cm with surrounding fluid in the caudal aspect of the right joint capsule. Severe degenerative changes of the right shoulder. IMPRESSION: No acute traumatic fracture of the cervical spine. Multilevel degenerative changes as above Calcified body measuring 1.9 cm with surrounding fluid in the caudal aspect of the right joint capsule. This could represent a free body. Severe degenerative changes of the right shoulder. Electronically signed by Javad Gamino 06-14-2024 4:21 PM Femur X-Ray 06/14/24 15:02 XR femur LT 2V routine CLINICAL HISTORY: eval entire bone COMPARISON: X-ray earlier today FINDINGS: There is improved alignment at the intertrochanteric proximal femur fracture. No other fracture or dislocation seen at the left femur. IMPRESSION: Improved alignment. ACT 112: Negative or not required by law. Electronically signed by: Juan Jose Ga M.D. 06/14/2024 3:41 PM Hip X-Ray 06/14/24 19:34 Exam(s): XR LEFT HIP EXAM: XR Left Hip With Pelvis When Performed, 2 or 3 Views CLINICAL HISTORY: Reason for exam: postop. TECHNIQUE: Two or three views of the left hip with pelvis when performed. COMPARISON: No relevant prior studies available. FINDINGS: Bones/joints: Status post open reduction internal fixation of the left femur with intramedullary nail, distal interlocking transcortical screw, and proximal interlocking dynamic hip screw. No hardware complication. Underlying intertrochanteric fracture is held in anatomic alignment. Osteopenia. Lumbar spondylosis. Soft tissues: Soft tissue swelling and subcutaneous gas in keeping with expected postoperative change. Vasculature: Vascular calcifications. IMPRESSION: Expected postoperative changes status post ORIF left femur. Electronically signed by: Lakeshia Jenkins M.D. 06/14/24 20:06 PM Discharge Instructions Given to Patient (Per Discharging Provider) You have been hospitalized for a hip fracture. Orthopedics was consulted and you underwent repair. You should have follow up with orthopedics, Dr Deleon, in 2 weeks from surgery for check. Your vitamin D level was checked and LOW -- Vitamin D supplementation was started/continued at discharge. B12 supplementation (low normal 255) was also started/continued. For blood clot prevention, you were started on Eliquis 2.5mg twice daily and this will be for 6 weeks. Pain control: tylenol and as needed oxycodone 2.5mg as needed. Please continue bowel regimen to prevent constipation. Would also recommend waiting until bowel movements are more regular before resuming semaglutide as this can cause constipation as well. You also completed a course of antibiotics for urinary tract infection and do not need any further ongoing antibiotics at discharge. HOLD YOUR JARDIANCE FOR NOW GIVEN FREQUENT UTIS UNTIL DISCUSSED WITH PRIMARY CARE IN FOLLOW UP. Please follow up with primary care in the next 7-10 days to monitor your status and coordinate your care. Please return to the ER with any increased pain/swelling/redness or for any other symptoms concerning for you. It has been a pleasure being a part of the medical team providing for you while you have been in the hospital. Take care! Supervising Physician Co-Signing Physician Notes The patient was not seen by me. The chart was reviewed. Case discussed with FRANCIS Vogt. Agree with assessment and plan Total Time Total Time Spent Total Time Spent (In Minutes): 45 Coding Level of Care Code 88725 INP/OBS DISCH >30 MIN Diagnoses Closed left hip fracture S72.002A UTI (urinary tract infection) N39.0 Diabetes mellitus, type 2 E11.9 Vitamin D deficiency E55.9
[2024-06-19 10:12] LABS: Calcium 8.8 mg/dl (8.6-10.3); Creatinine Clr Calc Pharmacy 36.6 ml/min; Magnesium 1.9 mg/dl (1.7-2.4); Potassium 4.7 mmol/L (3.5-5.1)
== END 2024-06-19 13:27 | DRG 481 ==
LOC: ED 12:03 → OR 17:00 → SUATTDRO 17:01 → 3N 17:01 → OR 17:05 → 3W 06-15 23:08

== ENCOUNTER 2024-08-06 17:07 | Observation (INO) ==
[2024-08-06 18:38] LABS: Basophils # (auto) 0.03 K/uL (0.00-0.20); Basophils % (auto) 0.5 %; Eosinophils # (auto) 0.03 K/uL (0.00-0.50); Eosinophils % (auto) 0.5 %; Hematocrit (blood only) 45.9 % (37.0-47.0); Hemoglobin 14.9 g/dl (12.0-16.0); Immature Granulocytes # (auto) 0.02 K/uL (0.01-0.20); Immature Granulocytes % (auto) 0.4 %; Lymphocytes # (auto) 1.03 K/uL (1.20-3.40); Lymphocytes % (auto) 18.4 %; Mean Corpuscular Hemoglobin 31.8 pg (25.0-34.0); Mean Corpuscular Hgb Conc 32.5 g/dL (32.0-36.0); Mean Corpuscular Volume 98.1 fL (80.0-100.0); Mean Platelet Volume 9.5 fL (9.4-12.4); Monocytes # (auto) 0.39 K/uL (0.11-0.59); Neutrophils # (auto) 4.09 K/uL (1.40-6.50); Neutrophils % (auto) 73.2 %; Platelet Count 305 K/uL (130-400); RDW Coefficient of Variation 15.2 % (11.5-14.5); RDW Standard Deviation 55.4 fL (36.4-46.3); Red Blood Count 4.68 M/uL (4.20-5.40); White Blood Count 5.59 K/ul (4.8-10.8)
[2024-08-06 18:48] LABS: Appearance Urine Cloudy (Clear); Bacteria Urine Automated None Seen (None Seen); Bilirubin Urine Negative (Negative); Blood Urine 2+ (Negative); Cast Urine Automated 0-2 /lpf (0-2); Color Urine Yellow; Epithelial Cell Urine Auto 0-2 /hpf (0-2); Glucose Urine UA Trace (Negative); Ketones Urine Trace (Negative); Leukocyte Esterase Urine 3+ (Negative); Nitrite Urine Negative (Negative); Protein Urine 2+ (Negative); Specific Gravity Urine 1.014 (1.000-1.030); Urobilinogen Urine Negative (Negative); WBC Urine Automated >50 /hpf (0-5); pH Urine 5.5 (4.5-7.5)
[2024-08-06 18:50] LABS: Albumin Globulin Ratio 1.3 (0.9-2); Albumin Level 3.7 gm/dl (3.4-5.0); BUN Creatinine Ratio 39.4 (10-20); Bilirubin,Total 1.1 mg/dl (0.2-1.0); Calcium 9.7 mg/dl (8.6-10.3); Creatinine Clr Calc Pharmacy 42.1 ml/min; Globulin 2.9 gm/dl (2.5-4.0); Potassium 4.8 mmol/L (3.5-5.1); Total Protein 6.6 gm/dl (6.0-8.3)
--- NOTE | 2024-08-06 18:52 | CT Scan Report ---
INDICATION: Weakness. COMPARISON: CT from 06/14/2024. TECHNIQUE: Axial CT images of the head were obtained without IV contrast. Coronal and sagittal reformations were reviewed. FINDINGS: Candelario-white differentiation is relatively preserved. No mass, mass effect or midline shift. Mild chronic ischemic white matter changes. Mild frontal cortical atrophy. Basal ganglia calcifications noted. No evidence of acute large territorial infarction or acute intracranial hemorrhage. Ventricles appear normal in size. Basal cisterns are patent. No depressed calvarial fracture. IMPRESSION: No acute intracranial process. Electronically signed by Anton Gonzalez 08-06-2024 6:52 PM
[2024-08-06 18:57] LABS: Troponin I High Sensitivity 12.1 pg/ml (0-14)
--- NOTE | 2024-08-06 18:59 | Emergency Department Note ---
Impression & Plan Generalized weakness, Acute UTI (urinary tract infection) ED Provider Note HISTORY OF PRESENT ILLNESS: Patient is a 79-year-old female presenting with generalized weakness. Patient presents with multiple complaints. She reportedly has "a bladder infection" this been ongoing for several weeks. Family at bedside reports that she was on multiple antibiotics, but when asked to name them they states she was on Macrobid and multiple doses of fluconazole. They state that her urine is dark in color and foul-smelling. Patient has reportedly lost 11 pounds in the last week. She reports she has no appetite and has not been eating or drinking well. Denies any chest pain or shortness of breath. She reports urinary frequency, but denies any dysuria or hematuria. Denies any abdominal pain. ROS: as above PHYSICAL EXAM: Constitutional: Patient appears in no acute distress. Cachectic appearing HENT: Head: Normocephalic and atraumatic. Eyes: EOMI, PERRL Mouth/Throat: Mucous membranes moist. Neck: Trachea midline. Neck supple. Cardiovascular: RRR, No murmurs, rubs or gallops. Intact distal pulses. Pulmonary/Chest: No respiratory distress. Breath sounds clear and equal bilaterally. No wheezes or rales. Abdominal: Abdomen soft, no tenderness, rebound or guarding. Musculoskeletal: No edema, tenderness or deformity noted. Skin: Warm and dry. No rash, erythema, pallor or cyanosis Psychiatric: Appropriate mood and affect for situation. Neurological: Alert and keenly responsive. CN II-XII grossly intact, moving all extremities equally and fully. MDM: - Vitals signs showed hypertension and tachycardia - History obtained via patient and patient's family at bedside. History as above. - Chronic conditions affecting care: GERD; HLD; CAD (s/p CABG); vitamin D deficiency; DM-2 - Differential diagnoses include, but are not limited to: pneumonia; UTI; viral syndrome; electrolyte abnormality; ACS; CVA; intracranial hemorrhage - Order placed for continuous cardiac monitoring. At this time, monitor showed rate of 104 bpm with normal sinus rhythm, per my interpretation. - External medical records reviewed. Primary care visit note dated 07/31/2024 was reviewed. Patient was seen for urinary symptoms and weight loss. She has grown yeast on previous urinalysis and was treated with fluconazole. - EKG image interpreted by myself showed normal sinus rhythm. Rate 100 bpm. QT 350. Ischemic changes. Noted to have an incomplete right bundle branch block - Laboratory workup interpreted by myself showed normal WBC; normal PT/INR; stable electrolyte; normal TSH; normal troponin - Viral respiratory panel negative - UA obtained via straight cath showed evidence of infection. Patient given 2 g IV Rocephin. - CXR image reviewed by myself was negative for pneumonia, per my interpretation. - Patient given 1L NS. - Discussion was had with showcase maker about patient's case and need for admission - Hospitalist consulted for admission - Patient admitted to [facility] for further evaluation and management. ASSESSMENT AND PLAN: Diagnosis: generalized weakness; acute UTI Plan: admit Past Med/Surg History Problem List (Updated 08/06/24 @ 20:01 by Farzana Grimm MD) Acute UTI (urinary tract infection) (Acute) Generalized weakness (Acute) Fall from standing (Acute) Closed intertrochanteric fracture of left femur (Acute 06/14/24) Acute left femoral neck fracture and old left pubic rami fractures from a fall Closed left hip fracture (06/14/24) Acute left femoral neck fracture and old left pubic rami fractures from a fall Lower extremity edema Esophageal dysphagia Cervicalgia Coronary artery disease coronary bypass graft 05/20/2020 [facility]: Smith to LAD, saphenous vein to OM1 and SVG to RCA Acquired dysphasia (Acute) Anemia (Acute) Depression (Acute) Dysphagia (Acute) History of gastric bypass (Acute) Prolapse of vaginal marks (Acute) Tinnitus (Acute) Status post total replacement of hip (Acute 11/06/12) Urinary incontinence (Acute) Vitamin D deficiency (Acute) History of adenomatous polyp of colon Peripheral arterial disease (Acute) Osteoporosis (Acute) Mitral regurgitation (Acute) Lumbar canal stenosis (Acute) Hyperlipidemia (Acute) GERD (gastroesophageal reflux disease) (Acute) Diabetic retinopathy (Acute) Carotid artery plaque Medical History (Updated 08/06/24 @ 20:01 by Farzana Grimm MD) UTI (urinary tract infection) Bile acid esophageal reflux Hypertension 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" CAD (coronary artery disease) CABG 2020 Degenerative disc disease Raynaud's disease Diabetes mellitus, type 2 Varicose veins of both lower extremities hx of superficial blood clots Hearing deficit Surgical History (Updated 07/20/24 @ 00:07 by Teresa Woodard) History of facelift History of cardiac catheterization 04/2020 -- [facility] - CP --> CABG History of four vessel coronary artery bypass graft 05/2020>[facility] ? "can't remember" History of needle biopsy on breast--benign Status post left foot surgery to remove a needle History of open reduction and internal fixation (ORIF) procedure left arm--hardware in place History of cholecystectomy History of abdominoplasty History of colonoscopy with polypectomy History of esophagogastroduodenoscopy (EGD) History of varicose vein ligation bilt legs History of Emerald-en-Y gastric bypass History of tooth extraction all teeth Status post bilateral LASIK surgery History of bilateral cataract extraction S/P vaginal hysterectomy S/P tonsillectomy Status post right hip replacement x7--last was 11/06/2012 Family History Mother Myocardial infarction Stroke Family history of diabetes mellitus Diabetes Sister Myocardial infarction Family history of diabetes mellitus Diabetes Coronary heart disease Father Myocardial infarction Family history of diabetes mellitus Diabetes Brother Lung cancer Family history of diabetes mellitus Coronary heart disease Son Family history of diabetes mellitus Daughter Family history of diabetes mellitus Grandfather (Maternal) Family history of diabetes mellitus Grandmother (Paternal) Family history of diabetes mellitus Family hx of colon cancer Grandmother (Maternal) Family history of diabetes mellitus Other Colorectal cancer No family history of adverse response to anesthesia Denies family history of Ovarian cancer Prostate cancer Breast cancer Social History (Updated 07/31/24 @ 09:39 by GRACY Benitez) Smoking Status: Never smoker Second Hand Exposure: No; Do You Dip or Chew Tobacco: No; Hx Alcohol Use: Yes Alcohol Intake Frequency: 2-4 x/Month Hx Substance Use: No Preferred Language: Kazakh Communication Ability: Effective Visual Impairment: No Limitations Hearing Ability: Normal Auto Salvage Worker Required: No Beliefs That Will Affect Care: None marital status: Current Living Situation: Family Current Living Situation Comment: lives with daughter current occupational status: retired Feels Safe at Home: Yes Childhood Exposure to Second-Hand Smoke: No Diet: diabetic caffeine: Yes during the past year weight has: remained stable Dental Care, Regularly: No Physical Activity Frequency: 3-4 Times per Week Seatbelt Use: always Sunscreen Use: No Assistive Devices: Cane and Walker Allergies Allergies Allergy/AdvReac Type Severity Reaction Status Date / Time alendronate sodium AdvReac Intermediate SEVERE Verified 08/06/24 19:08 HEADACHE risedronate sodium AdvReac Intermediate SEVERE Verified 08/06/24 19:08 HEADACHE metformin AdvReac Mild DIARRHEA Verified 08/06/24 19:08 Home Meds Home Medications Medication Instructions Recorded Confirmed aspirin 81 mg tablet,delayed 81 mg PO QPM 05/28/20 08/06/24 release (Adult Low Dose Aspirin) multivitamin with minerals 1 tab PO QAM 05/28/20 08/06/24 acetaminophen 325 mg tablet 650 mg PO Q6H PRN fever or pain 07/17/24 08/06/24 cyclobenzaprine 5 mg tablet 5 mg PO TID PRN Muscle Spasm 07/17/24 08/06/24 lidocaine 4 % topical patch 1 patch topical DAILY 07/17/24 08/06/24 oxycodone 5 mg tablet 5 mg PO Q6H PRN pain 07/17/24 08/06/24 pantoprazole 40 mg tablet,delayed 40 mg PO DAILY 07/17/24 08/06/24 release apixaban 2.5 mg tablet (Eliquis) 2.5 mg PO BID 08/06/24 08/06/24 Previous Rx's Medication Instructions Recorded zoledronic acid 5 mg/100 mL in See Rx Instructions IV ONCE #100 mL 07/29/23 mannitol 5 %-water intravenous piggybck (Reclast) empagliflozin 25 mg tablet 25 mg PO QAM #90 tabs 08/31/23 metoprolol succinate 25 mg 25 mg PO QAM #30 tabs 10/18/23 tablet,extended release 24 hr nitroglycerin 0.4 mg sublingual 0.4 mg sublingual UD PRN chest 11/01/23 tablet (Nitrostat) pain #25 tabs losartan 25 mg tablet 25 mg PO DAILY #90 tabs 11/11/23 rosuvastatin 20 mg tablet 20 mg PO QAM #90 tabs 12/05/23 ondansetron HCl 4 mg tablet 4 mg PO Q8H PRN nausea and 02/03/24 vomiting #90 tabs furosemide 20 mg tablet 20 mg PO DAILY #30 tabs 05/08/24 cholecalciferol (vitamin D3) 125 125 mcg PO QAM #30 tabs 06/19/24 mcg (5,000 unit) tablet cyanocobalamin (vitamin B-12) 500 500 mcg PO QAM #30 tabs 06/19/24 mcg tablet famotidine 20 mg tablet 20 mg PO BID #60 tabs 07/12/24 blood sugar diagnostic (OneTouch #100 ea 07/17/24 Ultra Test strips) potassium chloride 20 mEq 20 meq PO DAILY #30 tabs 07/19/24 tablet,extended release Results & Data (ED) Vital Signs Vital Signs - 24 hr 08/06/24 17:09 08/06/24 17:35 08/06/24 17:41 Temperature 36.3 C L Temperature Source Oral Pulse Rate 116 H 108 H Pulse Rate [Right Finger] Pulse Rhythm Pulse Rhythm [Right Finger] Regular Pulse Strength [Right Finger] Normal Respiratory Rate 18 Respiratory Effort / Characteristics Non-Labored Respiratory Depth Normal Respiratory Pattern Regular Blood Pressure 139/90 Blood Pressure [Right Arm] 150/101 H Blood Pressure Mean 106 Blood Pressure Mean [Right Arm] 117 Blood Pressure Position [Right Arm] Lying Pulse Oximetry 99 Oxygen Delivery Method Room Air Room Air Sepsis New/Unexplained Change in Mental Status No Sepsis Action Taken by Nursing No Action Required 08/06/24 17:41 08/06/24 17:59 08/06/24 19:08 Temperature Temperature Source Pulse Rate 104 H Pulse Rate [Right Finger] 104 H Pulse Rhythm Regular Pulse Rhythm [Right Finger] Pulse Strength [Right Finger] Respiratory Rate 19 16 Respiratory Effort / Characteristics Non-Labored Spontaneous Respiratory Depth Respiratory Pattern Blood Pressure Blood Pressure [Right Arm] 132/95 Blood Pressure Mean Blood Pressure Mean [Right Arm] 107 Blood Pressure Position [Right Arm] Pulse Oximetry 98 98 99 Oxygen Delivery Method Room Air Room Air Room Air Sepsis New/Unexplained Change in Mental Status Sepsis Action Taken by Nursing Laboratory Data 08/06/24 18:21 08/06/24 18:21 Lab Results 08/06/24 08/06/24 Range/Units 18:15 18:21 WBC 5.59 (4.8-10.8) K/ul RBC 4.68 (4.20-5.40) M/uL Hgb 14.9 (12.0-16.0) g/dl Hct 45.9 (37.0-47.0) % MCV 98.1 (80.0-100.0) fL MCH 31.8 (25.0-34.0) pg MCHC 32.5 (32.0-36.0) g/dL RDW Std Deviation 55.4 H (36.4-46.3) fL RDW Coeff of Charlee 15.2 H (11.5-14.5) % Plt Count 305 (130-400) K/uL MPV 9.5 (9.4-12.4) fL Immature Gran % (Auto) 0.4 % Neut % (Auto) 73.2 % Lymph % (Auto) 18.4 % [place] % (Auto) 7.0 % Eos % (Auto) 0.5 % Baso % (Auto) 0.5 % Neut # (Auto) 4.09 (1.40-6.50) K/uL Lymph # (Auto) 1.03 L (1.20-3.40) K/uL [place] # (Auto) 0.39 (0.11-0.59) K/uL Eos # (Auto) 0.03 (0.00-0.50) K/uL Baso # (Auto) 0.03 (0.00-0.20) K/uL Immature Gran # (Auto) 0.02 (0.01-0.20) K/uL PT 10.5 (9.0-12.0) Seconds INR 1.0 (0.9-1.1) Sodium 139 (136-145) mmol/L Potassium 4.8 (3.5-5.1) mmol/L Chloride 104 (98-107) mmol/L Carbon Dioxide 28 (21-32) mmol/L Anion Gap 7 (3-11) BUN 26 H (6-23) mg/dl Creatinine 0.66 (0.6-1.2) mg/dl Est Cr Clr Drug Dosing 42.1 ml/min eGFR 89.18 BUN/Creatinine Ratio 39.4 H (10-20) Glucose 166 H (70-99(Fasting)) mg/dl Lactate 1.8 (0.4-2.0) mmol/L Calcium 9.7 (8.6-10.3) mg/dl Magnesium 2.0 (1.7-2.4) mg/dl Total Bilirubin 1.1 H (0.2-1.0) mg/dl AST 24 (13-39) U/L ALT 12 (7-52) U/L Alkaline Phosphatase 162 H (34-104) U/L Troponin I High Sens 12.1 (0-14) pg/ml Total Protein 6.6 (6.0-8.3) gm/dl Albumin 3.7 (3.4-5.0) gm/dl Globulin 2.9 (2.5-4.0) gm/dl Albumin/Globulin Ratio 1.3 (0.9-2) TSH 3.466 (0.300-4.500) uIu/ml Urine Color Yellow Urine Appearance Cloudy A (Clear) Urine pH 5.5 (4.5-7.5) Ur Specific [place] 1.014 (1.000-1.030) Urine Protein 2+ H (Negative) Urine Glucose (UA) Trace H (Negative) Urine Ketones Trace H (Negative) Urine Blood 2+ H (Negative) Urine Nitrite Negative (Negative) Urine Bilirubin Negative (Negative) Urine Urobilinogen Negative (Negative) Ur Leukocyte Esterase 3+ H (Negative) Urine WBC (Auto) >50 H (0-5) /hpf Urine RBC (Auto) 6-10 H (0-2) /hpf U Hyaline Cast (Auto) 0-2 (0-2) /lpf U Epithel Cells (Auto) 0-2 (0-2) /hpf Urine Bacteria (Auto) None Seen (None Seen) Urine Yeast Present A (None Prsent) Adenovirus (PCR) Not Detected (NotDetected) B. pertussis DNA (PCR) Not Detected (NotDetected) B.parapertussis DNA PCR Not Detected (NotDetected) C. pneumoniae DNA (PCR) Not Detected (NotDetected) Coronavirus OC43 (PCR) Not Detected (NotDetected) Coronavirus HKU1 (PCR) Not Detected (NotDetected) Coronavirus 229E (PCR) Not Detected (NotDetected) SARS-CoV-2 (PCR) Not Detected (NotDetected) Coronavirus NL63 (PCR) Not Detected (NotDetected) Human Metapneumovir PCR Not Detected (NotDetected) Influenza Type A (PCR) Not Detected (NotDetected) Influenza Type B (PCR) Not Detected (NotDetected) M. pneumoniae (PCR) Not Detected (NotDetected) Parainfluenza 1 (PCR) Not Detected (NotDetected) Parainfluenza 2 (PCR) Not Detected (NotDetected) Parainfluenza 3 (PCR) Not Detected (NotDetected) Parainfluenza 4 (PCR) Not Detected (NotDetected) RSV (PCR) Not Detected (NotDetected) Entero/Rhino (PCR) Not Detected (NotDetected) Administered Medications Discontinued Medications Ceftriaxone Sodium (Rocephin) 2,000 mg in 50 mls @ 100 mls/hr IV NOW STA Stop: 08/06/24 19:36 Last Admin: 08/06/24 19:20 Dose: 100 mls/hr Documented By: WINSTON Imaging Data Radiologist's Impression: Head CT 08/06/24 17:59 INDICATION: Weakness. COMPARISON: CT from 06/14/2024. TECHNIQUE: Axial CT images of the head were obtained without IV contrast. Coronal and sagittal reformations were reviewed. FINDINGS: Candelario-white differentiation is relatively preserved. No mass, mass effect or midline shift. Mild chronic ischemic white matter changes. Mild frontal cortical atrophy. Basal ganglia calcifications noted. No evidence of acute large territorial infarction or acute intracranial hemorrhage. Ventricles appear normal in size. Basal cisterns are patent. No depressed calvarial fracture. IMPRESSION: No acute intracranial process. Electronically signed by Anton Gonzalez 08-06-2024 6:52 PM Discharge Plan Visit Data Chief Complaint: Urinary Symptoms Stated Complaint: UTI FOR WEEKS ED Provider: Farzana Grimm Discharge Problem: Generalized weakness, Acute UTI (urinary tract infection) Forms Stand Alone Forms: My [facility] [employer] Prescriptions Prescriptions: No Action aspirin [Adult Low Dose Aspirin] 81 mg tablet,delayed release (DR/EC) 81 mg PO QPM multivitamin with minerals Tablet 1 tab PO QAM zoledronic [id number] [Reclast] 5 mg/100 mL piggyback See Rx Instructions IV ONCE Qty: 100 0RF Rx Instructions: 5 mg intravenously once; empagliflozin 25 mg tablet 25 mg PO QAM Qty: 90 3RF Hold Instructions: Provider's Order - hold until discussed with PCP given UTI hx to prevent recurrance metoprolol succinate 25 mg tablet extended release 24 hr 25 mg PO QAM Qty: 30 11RF Hold Instructions: Orthostatic symptoms nitroglycerin [Nitrostat] 0.4 mg tablet, sublingual 0.4 mg sublingual UD PRN (Reason: chest pain) Qty: 25 0RF Hold Instructions: Patient states this was prescribed for prior to her surgery losartan 25 mg tablet 25 mg PO DAILY Qty: 90 3RF Hold Instructions: hypotensive rosuvastatin 20 mg tablet 20 mg PO QAM Qty: 90 3RF ondansetron HCl 4 mg tablet 4 mg PO Q8H PRN (Reason: nausea and vomiting) Qty: 90 11RF furosemide 20 mg tablet 20 mg PO DAILY Qty: 30 5RF famotidine 20 mg tablet 20 mg PO BID Qty: 60 11RF acetaminophen 325 mg tablet 650 mg PO Q6H PRN (Reason: fever or pain) Patient Comments: CONFIRMED W/ PT AND ON [facility] DC MEDS LIST 3/4 lidocaine 4 % adhesive patch,medicated 1 patch topical DAILY Patient Comments: CONFIRMED W/ PT AND ON CC DC MEDS LIST 3/4 pantoprazole 40 mg tablet,delayed release (DR/EC) 40 mg PO DAILY Patient Comments: CONFIRMED W/ PT AND ON [facility] DC MEDS LIST 3/4 oxycodone 5 mg tablet 5 mg PO Q6H PRN (Reason: pain) Patient Comments: CONFIRMED W/ PT AND ON CC DC MEDS LIST 3/4 cyclobenzaprine 5 mg tablet 5 mg PO TID PRN (Reason: Muscle Spasm) Patient Comments: CONFIRMED W/ PT AND ON CC DC MEDS LIST 3/4 (DME) OneTouch Ultra Test Strip See Rx Instructions .Route Qty: 100 3RF Rx Instructions: Test 4x daily potassium chloride 20 mEq tablet extended release 20 meq PO DAILY Qty: 30 5RF cyanocobalamin (vitamin B-12) 500 mcg Tablet 500 mcg PO QAM Qty: 30 0RF cholecalciferol (vitamin D3) 125 mcg (5,000 unit) Tablet 125 mcg PO QAM Qty: 30 0RF Eliquis 2.5 mg tablet 2.5 mg PO BID Referrals Referrals: Caden Ceja MD [Primary Care Provider] -
[2024-08-06 19:01] LABS: Prothrombin Time 10.5 Seconds (9.0-12.0)
[2024-08-06 19:06] LABS: Thyroid Stimulating Hormone 3.466 uIu/ml (0.300-4.500)
[2024-08-06] MEDS: cefTRIAXone SODIUM 2,000 MG/50 ML BAG IV STA (19:20)
[2024-08-06 19:38] LABS: Adenovirus PCR Not Detected (NotDetected); Bordetella parapertussis PCR Not Detected (NotDetected); Bordetella pertussis PCR Not Detected (NotDetected); Chlamydia pneumoniae PCR Not Detected (NotDetected); Coronavirus 229E PCR Not Detected (NotDetected); Coronavirus CoV-2 (COVID19)PCR Not Detected (NotDetected); Coronavirus HKU1 PCR Not Detected (NotDetected); Coronavirus NL63 PCR Not Detected (NotDetected); Coronavirus OC43PCR Not Detected (NotDetected); Human Metapneumovirus PCR Not Detected (NotDetected); Influenza A PCR Not Detected (NotDetected); Influenza B PCR Not Detected (NotDetected); Mycoplasma pneumoniae PCR Not Detected (NotDetected); Parainfluenza Virus 1 PCR Not Detected (NotDetected); Parainfluenza Virus 2 PCR Not Detected (NotDetected); Parainfluenza Virus 3 PCR Not Detected (NotDetected); Parainfluenza Virus 4 PCR Not Detected (NotDetected); Respiratory Syncytial VirusPCR Not Detected (NotDetected); Rhinovirus/Enterovirus PCR Not Detected (NotDetected)
[2024-08-06] MEDS: SODIUM CHLORIDE 0.9% 1,000 ML IV ONE (19:56)
--- NOTE | 2024-08-06 20:34 | History & Physical Report ---
Date of Service August 06, 2024 Assessment & Plan (1) Acute UTI (urinary tract infection): (2) Generalized weakness: (3) Ambulatory dysfunction: (4) Malnutrition: (5) Diabetes mellitus, type 2: (6) Abnormal LFTs (liver function tests): (7) Pulmonary nodule: Plan Patient is a 79-year-old female with past medical history of HTN, esophageal dysphagia, lower extremity edema, type II DM, CAD, recent hip fracture 2/2 fall s/p inpatient rehab. She presented to the ED with her family due to several weeks of urinary symptoms and weakness. Patient is being admitted for UTI requiring IV antibiotics and to have PT/OT evals. #UTI urinary symptoms this time several weeks, failed outpatient treatment of Macrobid and fluconazole UA showed bloody appearance, 2+ protein, trace glucose, trace ketones, 2+ blood, 3+ leukocyte esterase, 6-10 RBC, >50 WBC, yeast present, no bacteria Previous cultures grew Cynthia glabrata (no sensitivities), and pansensitive E. coli nonseptic on admission, no leukocytosis, HR 104 all VSS stable; trend CBC continue Rocephin Defer Pseudomonas coverage as has never grown Pseudomonas in the past yeast coverage - fluconazole IV x1 on admission - hold oxycodone with potential interaction - Spoke with pharmacy staff regarding antifungal treatment. As patient failed outpatient fluconazole x 6 days concern for fluconazole resistant Cynthia UTI. Up-to-date recommends amphotericin B however to start recommend ID consult. Other antifungal options that are on formulary, including voriconazole, do not achieve adequate concentrations in urine for treating infection. Will treat with IV fluconazole x 1 tonight. - defer to daytime team regarding continuing IV fluconazole versus ID consult for Ampho B follow urine cultures trend cbc and BMP to monitor WBC and renal function #weakness/Ambulatory dysfunction suspect 2/2 UTI, malnutrition, recent hip fracture head CT negative B12 255 (06/16/24), continue vit b12 supplement hold lasix with acute infection and clinically volume depleted recent hip fracture requiring inpatient rehab, continue lidocaine patch as needed TSH WNL PT/OT consulted fall and aspiration precautions #malnutrition family reports 11 lb weight loss clinically extremely dry and poor PO intake on diuretic - 1L NSS in ED, 1L NSS at 80 mL/hour overnight - mild tachycardia, 104 on admission - suspect 2/2 hypovolemia protein 6.6, albumin 3.7 diet consult placed continue daily multivitamin continue vit d supplement #T2DM patient stated recently discontinued Jardiance, only diet controlled Recent A1c 6.4 glucose 166 on admission Will defer insulin at this time however monitor BSG ACHS, add insulin if glucose persistently elevated #elevated alk phos alk phos 162, other LFTs WNL denies abd pain no previous abd imaging on record trend cmp #pulmonary nodules denies tobacco use new notation from previous CXRs CXR showing pulmonary nodule changes noted at right middle lobe and left lower lung zones measuring up to 7 mm, prominent bilateral hilar shadow's (could be enlarged lymph nodes), rounded oblique shadow seen in right axilla possibly a pathological node recommend chest CT in outpatient setting and follow-up with PCP Chronic stable diagnoses: HTN - continue losartan and metoprolol CAD - s/p CABG, continue ASA GERD/hx of gastric bypass - continue pantoprazole and famotidine chronic lower extremity edemaholding Lasix as above, teds ordered VTE ppx: cont Eliquis and TEDs; of note patient was to continue Eliquis for 6 weeks postop (ORIF 06/15, has now been 8 weeks however will continue as VTE PPx during hospitalization) Diet: t2dm, heart healthy Dispo: med surg Admission and Anticipated Discharge Date Admission Date: 08/06/24 History of Present Illness Chief Complaint: urinary sx Primary Care Provider: Caden Ceja MD Patient is a 79-year-old female with past medical history of HTN, esophageal dysphagia, lower extremity edema, type II DM, CAD, recent hip fracture 2/2 fall s/p inpatient rehab. She presented to the ED with her family due to several weeks of urinary symptoms and weakness. Patient is being admitted for UTI requiring IV antibiotics and to have PT/OT evals. Patient was admitted to the hospital 06/14 after a fall that resulted in a hip fracture s/p ORIF. She still on Eliquis for DVT prophylaxis was started on vitamin D and B12 supplements at this time. Patient was discharged to [facility] and then resided at [facility] from 07/03 to 07/14. She now lives at home under 24/7 supervision of her daughter and son-in-law. Patient seen at bedside with her daughter and son-in-law present. She stated that for the past several weeks she has had burning with urination, increasing urinary urgency, and increase in urinary frequency. She underwent treatment with Macrobid and fluconazole which did not seem to help her symptoms. Previous cultures grew pansensitive E. coli and Cynthia glabrata. She also stated her urine is dark in color and foul-smelling. She stated the weakness started shortly after she left [facility]. She Stated she has been using a walker to get around and has had difficulty with ambulation due to the weakness. She also endorses decrease in p.o. intake due to a poor appetite. Her family noted that she lost 11 pounds over the past month. She does endorse chills and lower abdominal pain due to to the UTI. She stated her doctor recently stopped her Jardiance and she is just been controlling her diabetes with diet however family reports that her levels have been elevated. Patient denies fever dizziness, lightheadedness, dyspnea, chest pain, nausea, vomiting, hematuria. She took her morning medications but is due for her evening medications, will order on admission. She wishes to be full code. She is agreeable to PT/OT hussain. Spoke with pharmacy staff regarding antifungal treatment. As patient failed outpatient fluconazole x 6 days concern for fluconazole resistant Cynthia UTI. Up-to-date recommends amphotericin B however to start with ID consult. Their antifungal options including voriconazole, do not achieve adequate concentrations in urine for treating infection. Will treat with IV fluconazole x 1 tonight. Allergies Allergy/AdvReac Type Severity Reaction Status Date / Time alendronate sodium AdvReac Intermediate SEVERE Verified 08/06/24 19:08 HEADACHE risedronate sodium AdvReac Intermediate SEVERE Verified 08/06/24 19:08 HEADACHE metformin AdvReac Mild DIARRHEA Verified 08/06/24 19:08 Home Medications Medication Instructions Recorded Confirmed Type aspirin 81 mg tablet,delayed 81 mg PO QPM 05/28/20 08/06/24 History release (Adult Low Dose Aspirin) multivitamin with minerals 1 tab PO QAM 05/28/20 08/06/24 History zoledronic acid 5 mg/100 mL in See Rx Instructions IV ONCE #100 mL 07/29/23 08/06/24 Rx mannitol 5 %-water intravenous piggybck (Reclast) empagliflozin 25 mg tablet 25 mg PO QAM #90 tabs 08/31/23 08/06/24 Rx metoprolol succinate 25 mg 25 mg PO QAM #30 tabs 10/18/23 08/06/24 Rx tablet,extended release 24 hr nitroglycerin 0.4 mg sublingual 0.4 mg sublingual UD PRN chest 11/01/23 08/06/24 Rx tablet (Nitrostat) pain #25 tabs losartan 25 mg tablet 25 mg PO DAILY #90 tabs 11/11/23 08/06/24 Rx rosuvastatin 20 mg tablet 20 mg PO QAM #90 tabs 12/05/23 08/06/24 Rx ondansetron HCl 4 mg tablet 4 mg PO Q8H PRN nausea and 02/03/24 08/06/24 Rx vomiting #90 tabs furosemide 20 mg tablet 20 mg PO DAILY #30 tabs 05/08/24 08/06/24 Rx cholecalciferol (vitamin D3) 125 125 mcg PO QAM #30 tabs 06/19/24 08/06/24 Rx mcg (5,000 unit) tablet cyanocobalamin (vitamin B-12) 500 500 mcg PO QAM #30 tabs 06/19/24 08/06/24 Rx mcg tablet famotidine 20 mg tablet 20 mg PO BID #60 tabs 07/12/24 08/06/24 Rx acetaminophen 325 mg tablet 650 mg PO Q6H PRN fever or pain 07/17/24 08/06/24 History blood sugar diagnostic (OneTouch #100 ea 07/17/24 Rx Ultra Test strips) cyclobenzaprine 5 mg tablet 5 mg PO TID PRN Muscle Spasm 07/17/24 08/06/24 History lidocaine 4 % topical patch 1 patch topical DAILY 07/17/24 08/06/24 History oxycodone 5 mg tablet 5 mg PO Q6H PRN pain 07/17/24 08/06/24 History pantoprazole 40 mg tablet,delayed 40 mg PO DAILY 07/17/24 08/06/24 History release potassium chloride 20 mEq 20 meq PO DAILY #30 tabs 07/19/24 08/06/24 Rx tablet,extended release apixaban 2.5 mg tablet (Eliquis) 2.5 mg PO BID 08/06/24 08/06/24 History Past Med/Surg History Problem List (Updated 08/06/24 @ 23:20 by Marilin Dixon PA-C) Pulmonary nodule Abnormal LFTs (liver function tests) Diabetes mellitus, type 2 Malnutrition Ambulatory dysfunction Acute UTI (urinary tract infection) (Acute) Generalized weakness (Acute) Fall from standing (Acute) Closed intertrochanteric fracture of left femur (Acute 06/14/24) Acute left femoral neck fracture and old left pubic rami fractures from a fall Closed left hip fracture (06/14/24) Acute left femoral neck fracture and old left pubic rami fractures from a fall Lower extremity edema Esophageal dysphagia Cervicalgia Coronary artery disease coronary bypass graft 05/20/2020 [facility]: Smith to LAD, saphenous vein to OM1 and SVG to RCA Acquired dysphasia (Acute) Anemia (Acute) Depression (Acute) Dysphagia (Acute) History of gastric bypass (Acute) Prolapse of vaginal marks (Acute) Tinnitus (Acute) Status post total replacement of hip (Acute 11/06/12) Urinary incontinence (Acute) Vitamin D deficiency (Acute) History of adenomatous polyp of colon Peripheral arterial disease (Acute) Osteoporosis (Acute) Mitral regurgitation (Acute) Lumbar canal stenosis (Acute) Hyperlipidemia (Acute) GERD (gastroesophageal reflux disease) (Acute) Diabetic retinopathy (Acute) Carotid artery plaque Medical History (Updated 08/06/24 @ 23:20 by Marilin Dixon PA-C) UTI (urinary tract infection) Bile acid esophageal reflux Hypertension 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" CAD (coronary artery disease) CABG 2020 Degenerative disc disease Raynaud's disease Varicose veins of both lower extremities hx of superficial blood clots Hearing deficit Surgical History (Updated 07/20/24 @ 00:07 by Teresa Woodard) History of facelift History of cardiac catheterization 04/2020 -- [facility] - CP --> CABG History of four vessel coronary artery bypass graft 05/2020>[facility] ? "can't remember" History of needle biopsy on breast--benign Status post left foot surgery to remove a needle History of open reduction and internal fixation (ORIF) procedure left arm--hardware in place History of cholecystectomy History of abdominoplasty History of colonoscopy with polypectomy History of esophagogastroduodenoscopy (EGD) History of varicose vein ligation bilt legs History of Emerald-en-Y gastric bypass History of tooth extraction all teeth Status post bilateral LASIK surgery History of bilateral cataract extraction S/P vaginal hysterectomy S/P tonsillectomy Status post right hip replacement x7--last was 11/06/2012 Family History Mother Myocardial infarction Stroke Family history of diabetes mellitus Diabetes Sister Myocardial infarction Family history of diabetes mellitus Diabetes Coronary heart disease Father Myocardial infarction Family history of diabetes mellitus Diabetes Brother Lung cancer Family history of diabetes mellitus Coronary heart disease Son Family history of diabetes mellitus Daughter Family history of diabetes mellitus Grandfather (Maternal) Family history of diabetes mellitus Grandmother (Paternal) Family history of diabetes mellitus Family hx of colon cancer Grandmother (Maternal) Family history of diabetes mellitus Other Colorectal cancer No family history of adverse response to anesthesia Denies family history of Ovarian cancer Prostate cancer Breast cancer Social History (Updated 07/31/24 @ 09:39 by GRACY Benitez) Smoking Status: Never smoker Second Hand Exposure: No; Do You Dip or Chew Tobacco: No; Tobacco Cessation Education Requested by Patient: No Hx Alcohol Use: Yes Alcohol Intake Frequency: 2-4 x/Month Hx Substance Use: No Preferred Language: Belarusian Communication Ability: Effective Visual Impairment: No Limitations Hearing Ability: Normal Stockroom Helper Required: No Beliefs That Will Affect Care: None marital status: Current Living Situation: Family Current Living Situation Comment: lives with daughter current occupational status: retired Other Information That Helps Us Care for You: No Feels Safe at Home: Yes Safety Concerns: Feels Safe At This Time Childhood Exposure to Second-Hand Smoke: No Diet: diabetic caffeine: Yes during the past year weight has: remained stable Dental Care, Regularly: No Physical Activity Frequency: 3-4 Times per Week Seatbelt Use: always Sunscreen Use: No Assistive Devices: Walker Review of Systems Review of Systems: see HPI Physical Exam Physical Exam: The patient is awake, alert and oriented 3, frail. HEENT- EOMI, mucous membranes dry. Hearing grossly intact. Heart-normal S1 and S2. No murmurs, rubs or gallops. Lungs-clear bilaterally, no respiratory distress, no accessory muscle use. Abdomen-normal bowel sounds and soft. No ascites noted. Non-tender. Extremities- no clubbing, cyanosis, or edema. Rheumatologic-normal range of motion. Psychiatric-normal affect. Results & Data Results & Data Vital Signs (Past 12 Hours) Vital Signs Temp Pulse Pulse Resp BP BP Pulse Ox 08/06/24 19:08 104 H 16 132/95 99 08/06/24 17:59 98 08/06/24 17:41 104 H 19 98 08/06/24 17:41 150/101 H 08/06/24 17:35 108 H 08/06/24 17:09 36.3 C L 116 H 18 139/90 99 O2 Del Method 08/06/24 19:08 Room Air 08/06/24 17:59 Room Air 08/06/24 17:41 Room Air 08/06/24 17:41 Room Air 08/06/24 17:35 08/06/24 17:09 Room Air Laboratory Results Reviewed CBC, PT/INR, CMP, bio fire, UA, troponin, mag, lactate, TSH Diagnostic Findings reviewed head CT and CXR Medications Administered EDRocephin 2G IV, 1L NSS bolus AdmissionNSS at 80 mL/hour fluconazole 200 Mg IV ECG Additional Comments: NSR, incomplete RBBB, possible RVH, T wave inversion in anterior leads Rate 100 QTc 451 appears similar to previous Code Status & VTE Plan Code Status full code VTE Prophylaxis Plan VTE Prophylaxis will be ordered: Yes Supervising Physician Co-Signing Physician Notes Attending addendum: I have physically seen this patient, have supervised the PECRY's activities, and agree with the H&P unless as otherwise noted. Assessment and Plan: The patient is a 79-year-old female with past medical history including hypertension, esophageal dysphagia, lower extremity edema, diabetes mellitus type 2, CAD, recent hip fracture 06/17/2024 secondary to fall and status post inpatient rehab. She presents to the emergency department due to family concerns regarding continued slow recovery, with urinary symptoms and generalized weakness, with decreased oral intake, and general lack of interest in activities. [facility]. #Urinary tract infection- Symptoms have been ongoing for several weeks. Patient is considering outpatient treatment failure having been on Macrobid, and fluconazole. Macrobid may impart be responsible for her altered mentation as well. Most recent cultures have grown Cynthia glabrata, however, no sensitivities were performed. Cultures of MRSA growing pansensitive E. coli, for which she will be continued on ceftriaxone 2 g IV daily Cynthia glabrata infection has been treated with fluconazole 150 mg daily for [address] patient on fluconazole 20 mg IV with dose this evening. Consider consult infectious disease for treatment potentially with caspofungin versus voriconazole versus amphotericin B. The latter of which would be the most toxic #Failure to thrive/generalized weakness/ambulatory dysfunction- Multiple etiologies including not limited to: Malnutrition, difficult recovery from recent hip fracture, recent urinary tract infection and ongoing infection, side effect of medication. CT scan head negative Holding Lasix due to volume depletion Patient will ultimately likely need to be returned to inpatient rehab Consult PT/OT #Diabetes mellitus type 2 Glucose 166 on admission Most recent A1c 6.4 Jardiance has recently been discontinued, and will continue to discontinue Placed Accu-Cheks with NovoLog SSI Chronic stable diagnoses: As noted PG Care Time/CCT Total # of Minutes Spent Total Time Spent with Patient: Total time spent is greater than 50% in coordination of care (as documented) at patient's floor/unit and/or counseling patient: Coding Level of Care Code 94890 INT INP/OBS CARE 3/75MIN Diagnoses Acute UTI (urinary tract infection) N39.0 Generalized weakness R53.1 Ambulatory dysfunction R26.2 Malnutrition E46 Diabetes mellitus, type 2 E11.9 Abnormal LFTs (liver function tests) R79.89 Pulmonary nodule R91.1
--- NOTE | 2024-08-06 20:53 | XRay Report ---
EXAM: XR chest 1V portable CLINICAL HISTORY: Weakness TECHNIQUE: An X-ray image of the chest is obtained in AP projection. COMPARISON: No prior studies are available for comparison. FINDINGS: Pulmonary Parenchyma: Mildly hyperinflated lung maher with prominent bronchovascular markings. Few nodular opaque shadows are seen at the right middle and left lower lung zones measuring up to 7 mm. Prominent bilateral hilar shadows, more on the left side. No evidence of pleural effusion or pleural thickening. Heart and Mediastinum: Heart size and shape are normal. Bony Thorax: Sternotomy metallic stures. Osteopenia. Internal fixation of the left humeral head, neck, and upper shaft by plate and screws. Osteoarthritic changes of the right glenohumeral joint. Soft Tissues: A rounded opaque shadow is seen at the right axilla measuring 20mm. Surgical clips are appreciated along the left hilum and pericardiac area, please correlate with previous surgical history. IMPRESSION: 1. Pulmonary nodular shadows are noted at the right middle and left lower lung zones measuring up to 7 mm. 2. Prominent bilateral hilar shadows, more on the left side with a dense opaque nodular density, could be enlarged lymph nodes. 3. A rounded opaque shadow is seen at the right axilla possibly a pathological lymph node. 4. Further CT assessment is advised. Electronically signed by Eric Griffin 08-06-2024 8:53 PM
[2024-08-06] MEDS: SODIUM CHLORIDE 0.9% 1,000 ML IV SCH (21:32)
[2024-08-06] MEDS ORDERED: GLUCOSE 40% GEL 15 GM TUBE PO PRN (22:30)
[2024-08-06] MEDS ORDERED: MELATONIN 3 MG TAB PO PRN (22:30)
[2024-08-06] MEDS ORDERED: CYCLOBENZAPRINE HCL 5 MG TAB PO PRN (22:30)
[2024-08-06] MEDS ORDERED: DEXTROSE 50% 50 ML SYRINGE IV PRN (22:30)
[2024-08-06] MEDS ORDERED: GLUCAGON FOR INJ 1 MG VIAL SQ PRN (22:30)
[2024-08-06] MEDS ORDERED: oxyCODONE HCL IR 5 MG TAB (IMMEDIATE RELEASE) PO PRN (22:30)
[2024-08-06] MEDS ORDERED: NITROGLYCERIN SL 0.4 MG/TAB TAB SL PRN (22:30)
[2024-08-06] MEDS ORDERED: GLUCOSE 10 TAB/TUBE PO PRN (22:30)
[2024-08-06] MEDS ORDERED: ACETAMINOPHEN 325 MG TAB PO PRN (22:30)
[2024-08-06] MEDS ORDERED: CARBOHYDRATES FOR HYPOGLYCEMIA PO PRN (22:30)
[2024-08-06] MEDS: FLUCONAZOLE 200 MG/100 ML BAG IV STA (23:48)
[2024-08-06] MEDS: ASPIRIN 81 MG ECTAB PO SCH (23:50)
[2024-08-06] MEDS: APIXABAN 2.5 MG TAB PO SCH (23:50)
[2024-08-06] MEDS: FAMOTIDINE 20 MG TAB PO SCH (23:50)
[2024-08-07] MEDS: ONDANSETRON INJ 2 MG/ML 2 ML VIAL IV PRN (02:00)
--- NOTE | 2024-08-07 07:16 | Hospitalist Progress Note ---
Date of Service August 07, 2024 Assessment & Plan (1) Acute UTI (urinary tract infection): (2) Generalized weakness: (3) Ambulatory dysfunction: (4) Malnutrition: (5) Diabetes mellitus, type 2: (6) Abnormal LFTs (liver function tests): (7) Pulmonary nodule: Plan Patient is a 79-year-old female with past medical history of HTN, esophageal dysphagia, lower extremity edema, type II DM, CAD, recent hip fracture 2/2 fall s/p inpatient rehab. She presented to the ED with her family due to several weeks of urinary symptoms and weakness. She was admitted for UTI requiring IV antibiotics and to have PT/OT evals. #Weakness/Ambulatory dysfunction - Likely multifactorial including current UTI, recent hip fracture, and chronic malnutrition/FTT - Does report h/o falls. Denies head trauma; head CT negative - Recent hip fracture, reduction on 06/14, required inpatient rehab; Continue lidocaine patch as needed - On lasix for LE swelling. Will hold d/t acute infection and volume status; consider discontinuing - TSH wnl - PT/OT consulted, appreciate input - Fall and aspiration precautions #FTT, dysphagia - Family reports 11 lb weight loss; chart shows 39.4kg today vs 48.8 on 06/14/2024 - On admission, appeared clinically hypovolemic 2/2 chronic poor PO intake + diuretic use. Now improving after 1L NSS bolus in ED and 1L maintenance NSS overnight. - Pt reports difficulty swallowing certain foods. [employer]SULTANT consult ordered - Diet consult placed - Protein 6.6, albumin 3.7 - B12 level on 06/16/24 was 255; Continue supplementation - Continue daily multivitamin - Continue vit d supplement #Urinary sx - Reports urinary symptoms for several weeks. Unclear if one refractory infection or rather recurrent UTI, or altogether separate urological issue. - Has failed outpatient treatment of Macrobid and fluconazole (x 6d). IV abx recommended by PCP. Pt nonseptic on admission - no leukocytosis, AF, VSS - UA: bloody appearance, 2+ protein, trace glucose, trace ketones, 2+ blood, 3+ leukocyte esterase, 6-10 RBC, >50 WBC, yeast present, no bacteria - Ucx previously grew Cynthia glabrata (no sensitivities) and pansensitive E. coli. Prelim results from cultures obtained 08/06 show no growth - Given 1x IV fluconazole on admission for yeast coverage Pharmacy brought up concern for fluconazole-resistant Cynthia UTI. Consider ID consult, maybe starting amphotericin B. Other antifungal options that are on formulary, e.g. voriconazole, do not achieve adequate concentrations in urine - Continue Rocephin - Repeat CBC and CMP w AM labs to monitor WBC and renal function #Pulmonary nodules - Denies h/o tobacco use - CXR on 08/06 showed: nodular shadows measuring up to 7 mm at R middle and L lower lung; prominent bilateral hilar shadows L > R; rounded opaque shadow at the R axilla possibly suggestive of pathological lymph node New findings compared w single-view CXR on 06/14/24 - Ordered chest CT, further workup/consults to be placed accordingly Chronic stable conditions: HTN - continue losartan and metoprolol CAD - s/p CABG, continue ASA T2DM - diet controlled; most recent A1c on 07/18/2024 was 6.4% GERD/hx of gastric bypass - continue pantoprazole and famotidine Chronic lower extremity edema - holding Lasix as above, consider discontinuing; teds ordered VTE ppx: cont Eliquis and TEDs Diet: T2DM, HH Dispo: med surg Admission and Anticipated Discharge Date Admission Date: August 06, 2024 Supervising Physician Co-Signing Physician Notes I personally examined the patient and verified all escalante points of history and exam, discussed case, and agree with decision making with Dr Solitario seen prior to CT. biggest complaint is urinary frequency/urgency/burning - notes ongoing for months vitals noted nad frail and thin appearing but acutely nad heent nc at mmm breathing unlabored no accessory muscles good effort skin no rashes no pallor or icterus failure to thrive -broad ddx - poor PO intake from ?depression, ?cognitive decline, ?overall circumstances; possible malignancy (CT chest to eval lung nodules further), other persistent dysuria -follow sx await culture - ddx untreated bacterial (macrobid may not have been effective due to age and drug clearance GFR) vs dehydration causing sx vs less likely fungal. IV fluids follow sx, follow Cx Subjective Reports feeling alright today. Reports difficulty walking for "a long time" and urinary sx for "a few weeks." Uses walker at home. Has had some falls, says most recent was 3 wks ago. Lives w daughter. Denies CADET, dizziness, SOB, CP, n/v, abd pain, skin changes. Says she has trouble swallowing certain foods (meats) but was able to consume breakfast (toast + eggs) and does not have trouble w liquids. Review of Systems 2 Review of Systems: As per HPI. Physical Exam 2 Physical Exam: Gen: Pleasant, appears somewhat frail, NAD HEENT: NCAT, MMM CV: RRR, murmur?, S1/S2 normal, no LE edema Resp: CTAB, symmetrical chest rise, breathing non-labored Abd: Soft, NT/ND, +BS Ext: No cyanosis, clubbing, or edema Skin: Warm, dry, pink, no rashes or lesions Neuro: AOx3, CN II-XII grossly intact Psych: Some apparent memory deficits. Answers questions appropriately. Mood- affect congruent. Results & Data Results & Data Vital Signs (Past 12 Hours) Vital Signs Temp Pulse Pulse Resp BP BP Pulse Ox 08/06/24 22:58 36.5 C 87 18 156/62 H 100 08/06/24 22:37 08/06/24 22:37 36.5 C 87 18 156/92 H 100 08/06/24 22:11 87 16 137/79 98 08/06/24 21:32 86 08/06/24 21:00 86 16 137/79 98 O2 Del Method 08/06/24 22:58 Room Air 08/06/24 22:37 Room Air 08/06/24 22:37 Room Air 08/06/24 22:11 Room Air 08/06/24 21:32 08/06/24 21:00 Room Air Laboratory Results 08/07/24 11:07 08/07/24 11:07 Resident Activity Tracking Resident Involvement: Resident Care Provided Care Provided: Adult Hospital Medicine
[2024-08-07] MEDS: LOSARTAN POTASSIUM 25 MG TAB PO SCH (09:01)
[2024-08-07] MEDS: CHOLECALCIFEROL 125 MCG (5,000 UNITS) TAB PO SCH (09:01)
[2024-08-07] MEDS: CEROVITE ADV FORMULA TAB PO SCH (09:01)
[2024-08-07] MEDS: ROSUVASTATIN CALCIUM 20 MG TAB PO SCH (09:01)
[2024-08-07] MEDS: PANTOprazole 40 MG TAB PO SCH (09:01)
[2024-08-07] MEDS: METOPROLOL SUCC 25MG EXT REL TAB PO SCH (09:01)
[2024-08-07] MEDS: CYANOCOBALAMIN (B-12) 500 MCG TABLET PO SCH (09:02)
[2024-08-07] MEDS: LIDOCAINE 5% 1 PATCH TD SCH (09:03)
[2024-08-07 11:28] LABS: Basophils # (auto) 0.03 K/uL (0.00-0.20); Basophils % (auto) 0.6 %; Eosinophils # (auto) 0.04 K/uL (0.00-0.50); Eosinophils % (auto) 0.8 %; Hematocrit (blood only) 38.5 % (37.0-47.0); Hemoglobin 12.5 g/dl (12.0-16.0); Immature Granulocytes # (auto) 0.02 K/uL (0.01-0.20); Immature Granulocytes % (auto) 0.4 %; Lymphocytes # (auto) 0.83 K/uL (1.20-3.40); Lymphocytes % (auto) 16.6 %; Mean Corpuscular Hemoglobin 32.3 pg (25.0-34.0); Mean Corpuscular Hgb Conc 32.5 g/dL (32.0-36.0); Mean Corpuscular Volume 99.5 fL (80.0-100.0); Mean Platelet Volume 9.5 fL (9.4-12.4); Neutrophils # (auto) 3.78 K/uL (1.40-6.50); Neutrophils % (auto) 75.6 %; Platelet Count 239 K/uL (130-400); RDW Coefficient of Variation 15.2 % (11.5-14.5); RDW Standard Deviation 55.6 fL (36.4-46.3); Red Blood Count 3.87 M/uL (4.20-5.40)
[2024-08-07 11:56] LABS: Bilirubin,Total 0.6 mg/dl (0.2-1.0); Calcium 8.2 mg/dl (8.6-10.3); Magnesium 1.9 mg/dl (1.7-2.4); Potassium 5.2 mmol/L (3.5-5.1)
[2024-08-07 11:59] LABS: Albumin Globulin Ratio 1.2 (0.9-2); BUN Creatinine Ratio 44.9 (10-20); Creatinine Clr Calc Pharmacy 56.7 ml/min; Globulin 2.5 gm/dl (2.5-4.0); Total Protein 5.5 gm/dl (6.0-8.3)
--- NOTE | 2024-08-07 13:27 | Electrocardiogram Report ---
Test Reason : Blood Pressure : */* mmHG Vent. Rate : 100 BPM Atrial Rate : 100 BPM P-R Int : 136 ms QRS Dur : 106 ms QT Int : 350 ms P-R-T Axes : 18 139 10 degrees QTcB Int : 451 ms Normal sinus rhythm Right axis deviation Incomplete right bundle branch block Possible Right ventricular hypertrophy Abnormal ECG When compared with ECG of 14-Jun-2024 12:11, Vent. rate has increased by 37 bpm QRS axis Shifted right T wave inversion more evident in Anterior leads Confirmed by Dom Deleon ([id number]) on 08/07/2024 1:26:42 PM Referred By: REFERRED SELF Confirmed By: Dom Deleon
--- NOTE | 2024-08-07 15:56 | CT Scan Report ---
CT chest diagnostic wo con CT DOSE: 262.73 mGy.cm CLINICAL HISTORY: nodules on CXR. TECHNIQUE: Multiaxial CT images of the chest were performed without contrast. A dose lowering techni que was utilized adhering to the principles of ALARA. COMPARISON STUDY: Chest x-ray of 08/06/2024 FINDINGS: There is mild scarring or atelectasis in the dependent lung bases. There is no pulmonary co nsolidation or pleural effusion. There are multiple scattered calcified pulmonary granuloma with left hilar lymph node calcification consistent with prior granulomatous disease. No significant pulmonary nodule seen. No enlarged adenopathy. There is a 2 cm calcification at the right axilla which could b e due to the bursitis and severe degenerative changes at the right shoulder or a calcified lymph node . There are diffuse coronary artery and aortic calcifications. There is prior CABG. There is osteopen ia. There are a few old healed rib fractures. Scoliosis and diffuse degenerative changes are present at the thoracic spine. No acute osseous finding seen. IMPRESSION: 1. Findings prior granulomatous disease with calcified pulmonary granuloma account for the prior ches t x-ray findings. 2. No suspicious pulmonary nodule seen. No pneumonia or pleural effusion. 3. Otherwise as described. ACT 112: Negative or not required by law. Electronically signed by: Juan Jose Ga M.D. 08/07/2024 3:55 PM
[2024-08-07] MEDS: DOCUSATE SODIUM 100 MG CAP PO PRN (17:41)
--- NOTE | 2024-08-07 18:06 | Billing Data ---
Date of Service August 07, 2024 Coding Level of Care Code 91470 SUB INP/OBS CARE MIN
[2024-08-07] MEDS: cefTRIAXone SODIUM 2,000 MG/50 ML BAG IV SCH (18:16)
[2024-08-07] MEDS: MIRTAZAPINE TAB 15 MG TAB PO SCH (20:05)
--- NOTE | 2024-08-08 06:53 | Hospitalist Progress Note ---
Date of Service August 08, 2024 Assessment & Plan (1) Acute UTI (urinary tract infection): (2) Generalized weakness: (3) Ambulatory dysfunction: (4) Malnutrition: (5) Diabetes mellitus, type 2: (6) Abnormal LFTs (liver function tests): (7) Pulmonary nodule: Plan Patient is a 79-year-old female with past medical history of HTN, esophageal dysphagia, lower extremity edema, type II DM, CAD, recent hip fracture 2/2 fall s/p inpatient rehab. She presented to the ED with her family due to several weeks of urinary symptoms and weakness. She was admitted for UTI requiring IV antibiotics and to have PT/OT evals. #Weakness/Ambulatory dysfunction - Likely multifactorial including current UTI, recent hip fracture, and chronic malnutrition/FTT - Does report h/o falls. Denies head trauma; head CT negative - Recent hip fracture, reduction on 06/14, required inpatient rehab; Continue lidocaine patch as needed - On lasix for LE swelling. Will hold d/t acute infection and volume status; consider discontinuing - TSH wnl - PT/OT consulted, rec continuing acute rehab w/ goal of discharge home - Fall precautions #FTT - Family reports 11 lb weight loss; chart shows 39.4kg today vs 48.8 on 06/14/2024 - On admission, appeared clinically hypovolemic 2/2 chronic poor PO intake + diuretic use. Improved after 1L NSS bolus in ED and 1L maintenance NSS overnight. - Given presentation & collateral hx, primary ddx is currently depression. Started 7.5mg mirtazepine qHS on 08/07 #Dysphagia - Pt reports difficulty swallowing certain foods. H/o swallow studies showing esophageal dysmotility, & EGD showing reflux esophagitis, which resolved w PPI, but no explanation for impaired swallow. - Diet consult placed - [employer] consult placed - Continue daily multivitamin - Continue vit d supplement #Urinary sx - Reports urinary symptoms for several weeks. Daughter corroborates dysuria, increased frequency & urgency, and foul-smelling urine for weeks (since discharge after hip fx). - Has failed outpatient treatment of Macrobid and fluconazole (x 6d). IV abx recommended by PCP. - UA: bloody appearance, 2+ protein, trace glucose, trace ketones, 2+ blood, 3+ leukocyte esterase, 6-10 RBC, >50 WBC, yeast present, no bacteria - Ucx previously grew Cynthia glabrata (no sensitivities) and pansensitive E. coli. Prelim results from cultures obtained 08/06 show no growth - No s/sx of chronic, refractory UTI - no leukocytosis, AF, VSS. Given 1x IV fluconazole on admission for yeast coverage. Given 1 dose IV Rocephin. Antimicrobials discontinued due to low suspicion for ongoing infection - Rec outpatient urology f/u to evaluate likely urge incontinence #Pulmonary nodules - Denies h/o tobacco use - CXR on 08/06 showed: nodular shadows measuring up to 7 mm at R middle and L lower lung; prominent bilateral hilar shadows L > R; rounded opaque shadow at the R axilla possibly suggestive of pathological lymph node New findings compared w single-view CXR on 06/14/24 - CT chest on 08/07 reassuring w/ no suspicious pulmonary nodule seen; did note calcified pulmonary granuloma, seen previously, could account for the CXR findings Chronic stable conditions: HTN - continue losartan and metoprolol CAD - s/p CABG, continue ASA T2DM - diet controlled; most recent A1c on 07/18/2024 was 6.4% GERD/hx of gastric bypass - continue pantoprazole and famotidine Chronic lower extremity edema - holding Lasix as above, consider discontinuing; teds ordered VTE ppx: cont Eliquis and TEDs Diet: T2DM, HH Dispo: med surg Admission and Anticipated Discharge Date Admission Date: August 06, 2024 Supervising Physician Co-Signing Physician Notes I personally examined the patient and verified all escalante points of history and exam, discussed case, and agree with decision making with Dr Solitario extensive discussions with pt and dtr. generally failure to thrive for several months. seems that PO intake is down without a real cause. losing weight. not doing much, not working with PT, sleeping all the time. cognitively sound. vitals noted nad frail and thin appearing but acutely nad heent nc at mmm breathing unlabored no accessory muscles good effort skin no rashes no pallor or icterus failure to thrive -broad ddx - but general malaise/deconditioning from hip fx and/or geriatric depression appearing to be the biggest culprits -extensive discussion on nutrition/calorie goals/how to meet goals -discussed lifestyle management (getting out to be more social again - seeing family/going out to eat/etc) -mirtazapine, follow osteoporosis -on reclast - may benefit from forteo/prolia persistent dysuria -doubt infectious -persistent hematuria - should have urology eval and consider cysto - but this would best be done as outpt -?overactive bladder/urge incontinence pathophysiology (but d/w pt and dtr would hesitate to start meds at this time due to side effect risks potentially adversely impacting failure to thrive) -?dehydration/concentrated urine (follow as her PO intake improves - if sx improve then this could be possible cause) Subjective Spoke w daughter Suzan yesterday: reports pt declined after hospitalization for hip fx. Had been independent w ADLs prior, has since required Suzan to move in w/ her to help. Low appetite has been an ongoing issue, partly d/t GERD, but has since diminished significantly to sometimes just a tablespoon per meal. Suzan reports having difficulty even getting pt to take sips of liquids, which she has tried to fortify in some way for increased protein. Has since been having the urinary sx (dark urine, increased frequency, burning w urination, Suzan reports a mucus-y appearance) which did not improve at all w/ the macrobid + fluconazole. Suzan also reports that pt seems to "lack the will to live" and no longer goes out, socializes, or does anything. She came to visit this afternoon, and when hugging her goodbye, pt told her "don't worry, it will be over soon." Today, patient feels "fine" overall. Does endorse dysuria and sense of urgency. No hematuria. No other complaints. Has been out of bed to bathroom by herself, using walker. Reports having no issues w/ meals. Review of Systems 2 Review of Systems: As per HPI. Physical Exam 2 Physical Exam: Gen: Pleasant, frail, NAD HEENT: NCAT, MMM CV: RRR, +murmur, no LE edema Resp: CTAB, symmetrical chest rise, breathing non-labored Abd: Soft, NT/ND, +BS Ext: No cyanosis, clubbing, or edema Skin: Warm, dry, well-perfused, ecchymoses on arms Neuro: AOx3, CN II-XII grossly intact Psych: Some apparent memory deficits. Answers questions appropriately. Mood- affect congruent. Results & Data Results & Data Vital Signs (Past 12 Hours) Vital Signs Temp Pulse Resp BP Pulse Ox O2 Del Method 08/07/24 21:17 Room Air 08/07/24 19:26 36.6 C 67 18 111/67 96 Room Air Laboratory Results 08/08/24 07:46 08/08/24 07:46 Resident Activity Tracking Resident Involvement: Resident Care Provided Care Provided: Adult Hospital Medicine
[2024-08-08 08:11] LABS: Basophils # (auto) 0.02 K/uL (0.00-0.20); Basophils % (auto) 0.3 %; Eosinophils # (auto) 0.07 K/uL (0.00-0.50); Hematocrit (blood only) 40.2 % (37.0-47.0); Hemoglobin 13.3 g/dl (12.0-16.0); Immature Granulocytes # (auto) 0.02 K/uL (0.01-0.20); Immature Granulocytes % (auto) 0.3 %; Lymphocytes # (auto) 0.61 K/uL (1.20-3.40); Lymphocytes % (auto) 8.7 %; Mean Corpuscular Hemoglobin 32.6 pg (25.0-34.0); Mean Corpuscular Hgb Conc 33.1 g/dL (32.0-36.0); Mean Corpuscular Volume 98.5 fL (80.0-100.0); Mean Platelet Volume 9.4 fL (9.4-12.4); Monocytes # (auto) 0.38 K/uL (0.11-0.59); Monocytes % (auto) 5.4 %; Neutrophils # (auto) 5.89 K/uL (1.40-6.50); Neutrophils % (auto) 84.3 %; Platelet Count 223 K/uL (130-400); RDW Coefficient of Variation 15.1 % (11.5-14.5); RDW Standard Deviation 55.2 fL (36.4-46.3); Red Blood Count 4.08 M/uL (4.20-5.40); White Blood Count 6.99 K/ul (4.8-10.8)
[2024-08-08 08:41] LABS: Albumin Globulin Ratio 1.2 (0.9-2); Albumin Level 3.2 gm/dl (3.4-5.0); BUN Creatinine Ratio 29.6 (10-20); Bilirubin,Total 0.6 mg/dl (0.2-1.0); Calcium 8.6 mg/dl (8.6-10.3); Creatinine Clr Calc Pharmacy 51.5 ml/min; Globulin 2.6 gm/dl (2.5-4.0); Total Protein 5.8 gm/dl (6.0-8.3)
--- NOTE | 2024-08-08 16:56 | Billing Data ---
Date of Service August 08, 2024 Coding Level of Care Code 48424 SUB INP/OBS CARE MIN
[2024-08-08] MEDS: OPTIRAY 320 100ml IV ONE (17:00)
--- NOTE | 2024-08-08 17:24 | CT Scan Report ---
EXAM: CT Abdomen and Pelvis With Intravenous Contrast INDICATION: Urinary issues. TECHNIQUE: Axial computed tomography images of the abdomen and pelvis with intravenous contrast. Sagittal and coronal reformatted images were created and reviewed. This CT exam was performed using one or more of the following dose reduction techniques: automated exposure control, adjustment of the mA and/or kV according to patient size, and/or use of iterative reconstruction technique. Oral contrast was administered. CONTRAST: 90ml of Optiray 320 was administered intravenously. COMPARISON: CT pelvis 06/14/2024 FINDINGS: Limitations: None. Lung bases: No abnormality noted. Pleural space: No visualized pleural effusion or pneumothorax. Heart: No abnormality noted. Mediastinum: Postoperative changes noted at the gastric fundus. There is a small sliding hiatal hernia and heterogeneous contrast filling. ABDOMEN: Liver: No abnormality noted. Gallbladder and bile ducts: Cholecystectomy. The common bile duct is dilated to 12 mm tapering to 6 mm at the ampulla. No ductal calcification. Pancreas: Homogeneous enhancement. No mass, inflammation or ductal dilation. Spleen: Granulomas in the spleen. Adrenals: No significant abnormality noted. Kidneys and ureters: Normal enhancement. No mass, hydronephrosis or visualized stone. Stomach and bowel: Moderate colonic stool most notable in the right. No obstruction. No visible mesenteric inflammation in the abdomen or upper pelvis. PELVIS: Appendix: Well seen and appears normal. Bladder: Suboptimally assessed due to artifact. Appears thickened. Question mild prolapse. No stones. No definite gas. Reproductive: Hysterectomy. ABDOMEN and PELVIS: Intraperitoneal space: No free air. No significant fluid collection. Bones/joints: Bilateral femoral hardware. Significant artifact limits assessment of surrounding structures in the pelvis. Degenerative changes noted in the scoliotic spine. No acute osseous abnormality noted. Soft tissues: No significant abnormality noted. Vasculature: Atherosclerotic calcification of the aorta and branches. No aneurysm. Lymph nodes: No pathologically enlarged lymph nodes. IMPRESSION: 1. Suboptimal assessment of the bladder with signs of cystitis and mild prolapse. 2. Postoperative changes of the stomach with small hiatal hernia. There is heterogeneous contrast filling of the hernia sac which could reflect redundant mucosa. Mass not excluded. ACT 112: N/A Electronically signed by Marley Medrano 08-08-2024 5:23 PM
[2024-08-09 06:54] LABS: Hematocrit (blood only) 37.7 % (37.0-47.0); Hemoglobin 12.5 g/dl (12.0-16.0); Mean Corpuscular Hemoglobin 32.3 pg (25.0-34.0); Mean Corpuscular Hgb Conc 33.2 g/dL (32.0-36.0); Mean Corpuscular Volume 97.4 fL (80.0-100.0); Mean Platelet Volume 9.6 fL (9.4-12.4); Platelet Count 194 K/uL (130-400); RDW Coefficient of Variation 15.3 % (11.5-14.5); RDW Standard Deviation 54.7 fL (36.4-46.3); Red Blood Count 3.87 M/uL (4.20-5.40)
[2024-08-09 07:29] LABS: BUN Creatinine Ratio 28.9 (10-20); Calcium 8.4 mg/dl (8.6-10.3); Creatinine Clr Calc Pharmacy 61.8 ml/min; Potassium 3.7 mmol/L (3.5-5.1)
--- NOTE | 2024-08-09 13:46 | Hospitalist Progress Note ---
Date of Service August 09, 2024 Assessment & Plan (1) Acute UTI (urinary tract infection): (2) Generalized weakness: (3) Ambulatory dysfunction: (4) Malnutrition: (5) Diabetes mellitus, type 2: (6) Abnormal LFTs (liver function tests): (7) Pulmonary nodule: Plan Patient is a 79-year-old female with past medical history of HTN, esophageal dysphagia, lower extremity edema, type II DM, CAD, recent hip fracture 2/2 fall s/p inpatient rehab. She presented to the ED with her family due to several weeks of urinary symptoms and weakness. She was admitted for UTI requiring IV antibiotics and to have PT/OT evals. #Weakness/Ambulatory dysfunction - Likely multifactorial including current UTI, recent hip fracture, and chronic malnutrition/FTT - Does report h/o falls. Denies head trauma; head CT negative - Recent hip fracture, reduction on 06/14, required inpatient rehab; Continue lidocaine patch as needed - On lasix for LE swelling. Will hold d/t acute infection and volume status; consider discontinuing - TSH wnl - PT/OT consulted, rec continuing acute rehab w/ goal of discharge home Daughter has been staying/acting as caregiver but will not be able to continue; requests we move forward w rehab placement - Fall precautions #FTT - Family reports 11 lb weight loss; chart shows 39.4kg today vs 48.8 on 06/14/2024 - On admission, appeared clinically hypovolemic 2/2 chronic poor PO intake + diuretic use. Improved after 1L NSS bolus in ED and 1L maintenance NSS overnight. - CXR showed pulmonary nodules. CT chest and CT A/P reassuring for any underlying malignancy - Given presentation & collateral hx, primary ddx is currently depression. Started 7.5mg mirtazepine qHS on 08/07 #Dysphagia - Pt reports difficulty swallowing certain foods. H/o swallow studies showing esophageal dysmotility, & EGD showing reflux esophagitis, which resolved w PPI, but no explanation for impaired swallow. - Diet consult placed - [employer] consult placed - Continue daily multivitamin - Continue vit d supplement #Urinary sx - Reports urinary symptoms for several weeks. Daughter corroborates dysuria, increased frequency & urgency, and foul-smelling urine for weeks (since discharge after hip fx). - Has failed outpatient treatment of Macrobid and fluconazole (x 6d). IV abx recommended by PCP. - UA: bloody appearance, 2+ protein, trace glucose, trace ketones, 2+ blood, 3+ leukocyte esterase, 6-10 RBC, >50 WBC, yeast present, no bacteria - Ucx previously grew Cynthia glabrata (no sensitivities) and pansensitive E. coli. Prelim results from cultures obtained 08/06 show no growth - No s/sx of chronic, refractory UTI - no leukocytosis, AF, VSS. Given 1x IV fluconazole on admission for yeast coverage. Given 1 dose IV Rocephin. Antimicrobials discontinued due to low suspicion for ongoing infection - Rec outpatient urology f/u to evaluate likely urge incontinence #Pulmonary nodules - Denies h/o tobacco use - CXR on 08/06 showed: nodular shadows measuring up to 7 mm at R middle and L lower lung; prominent bilateral hilar shadows L > R; rounded opaque shadow at the R axilla possibly suggestive of pathological lymph node New findings compared w single-view CXR on 06/14/24 - CT chest on 08/07 reassuring w/ no suspicious pulmonary nodule seen; did note calcified pulmonary granuloma, seen previously, could account for the CXR findings Chronic stable conditions: HTN - continue losartan and metoprolol CAD - s/p CABG, continue ASA T2DM - diet controlled; most recent A1c on 07/18/2024 was 6.4% GERD/hx of gastric bypass - continue pantoprazole and famotidine Chronic lower extremity edema - holding Lasix as above, consider discontinuing; teds ordered VTE ppx: cont Eliquis and TEDs Diet: T2DM, HH Dispo: med surg Admission and Anticipated Discharge Date Admission Date: August 06, 2024 Supervising Physician Co-Signing Physician Notes I personally examined the patient and verified all escalante points of history and exam, discussed case, and agree with decision making with Dr Solitario feeling about the same. ate better today. still wants to go home. unclear if dtr can take care of her, however. vitals noted nad frail and thin appearing but acutely nad heent nc at mmm breathing unlabored no accessory muscles good effort skin no rashes no pallor or icterus failure to thrive -broad ddx - but general malaise/deconditioning from hip fx and/or geriatric depression appearing to be the biggest culprits -08/08 extensive discussion on nutrition/calorie goals/how to meet goals -discussed lifestyle management (getting out to be more social again - seeing family/going out to eat/etc) -mirtazapine, follow -PO intake better today osteoporosis -on reclast - may benefit from forteo/prolia persistent dysuria -doubt infectious -persistent hematuria - should have urology eval and consider cysto - but this would best be done as outpt -?overactive bladder/urge incontinence pathophysiology (but d/w pt and dtr would hesitate to start meds at this time due to side effect risks potentially adversely impacting failure to thrive) -?dehydration/concentrated urine (follow as her PO intake improves - if sx improve then this could be possible cause) dispo - yesterday plan was likely home w dtr today. Dr Solitario d/w dtr and sounding like she may not be able to care for pt. PT/OT eval and treat ongoing Subjective Extensive discussion w pt & family yesterday regarding nutrition/calorie goals and potential manifestations of depression. Pt does not want PT but is willing to work w real estate sales agent to develop appropriate plan. Daughter Suzan expressed understanding of necessary lifestyle changes, e.g. visiting pt's sister certain days, going out to eat. Today, pt says she feels fine but is less interactive than previous days. Denies any pain, nausea, or other acute discomfort. Was able to eat a portion of her breakfast, and reports being able to get out of bed to bathroom w/o issue. Review of Systems 2 Review of Systems: As per HPI. Physical Exam 2 Physical Exam: Gen: Frail, NAD, responding with 1-2 word answers HEENT: NCAT, MMM CV: RRR, +murmur, no LE edema Resp: CTAB, symmetrical chest rise, breathing non-labored Abd: Soft, NT/ND, +BS Ext: No cyanosis, clubbing, or edema Skin: Warm, dry, well-perfused, some ecchymoses on arms Neuro: AOx3, CN II-XII grossly intact Psych: Affect flat compared to previous exams. Answers questions appropriately but briefly. Results & Data Results & Data Vital Signs (Past 12 Hours) Vital Signs Temp Pulse Resp BP Pulse Ox O2 Del Method 08/09/24 09:08 Room Air 08/09/24 07:00 36.3 C L 77 16 110/70 100 Room Air Laboratory Results 08/09/24 06:14 08/09/24 06:14 Resident Activity Tracking Resident Involvement: Resident Care Provided Care Provided: Adult Hospital Medicine
--- NOTE | 2024-08-09 15:22 | Billing Data ---
Date of Service August 09, 2024 Coding Level of Care Code 00082 SUB INP/OBS CARE MIN
[2024-08-10 07:10] VITALS: BP 119/71; PULSE 75; RESP 15; TEMP 97.5; O2SAT 99
[2024-08-10 07:16] LABS: Hematocrit (blood only) 36.9 % (37.0-47.0); Mean Corpuscular Hemoglobin 32.3 pg (25.0-34.0); Mean Corpuscular Hgb Conc 32.5 g/dL (32.0-36.0); Mean Corpuscular Volume 99.2 fL (80.0-100.0); Platelet Count 186 K/uL (130-400); RDW Coefficient of Variation 15.2 % (11.5-14.5); RDW Standard Deviation 55.5 fL (36.4-46.3); Red Blood Count 3.72 M/uL (4.20-5.40); White Blood Count 3.51 K/ul (4.8-10.8)
[2024-08-10 07:32] LABS: Calcium 8.3 mg/dl (8.6-10.3); Creatinine Clr Calc Pharmacy 59.1 ml/min
--- NOTE | 2024-08-10 07:53 | Hospitalist Progress Note ---
Date of Service August 10, 2024 Assessment & Plan (1) Acute UTI (urinary tract infection): (2) Generalized weakness: (3) Ambulatory dysfunction: (4) Malnutrition: (5) Diabetes mellitus, type 2: (6) Abnormal LFTs (liver function tests): (7) Pulmonary nodule: Plan Patient is a 79-year-old female with past medical history of HTN, esophageal dysphagia, lower extremity edema, type II DM, CAD, recent hip fracture 2/2 fall s/p inpatient rehab. She presented to the ED with her family due to several weeks of urinary symptoms and weakness. She was admitted for UTI requiring IV antibiotics and to have PT/OT evals. #Weakness/Ambulatory dysfunction - Likely multifactorial including current UTI, recent hip fracture, and chronic malnutrition/FTT - Does report h/o falls. Denies head trauma; head CT negative - Recent hip fracture, reduction on 06/14, required inpatient rehab; Continue lidocaine patch as needed - On lasix for LE swelling. Will hold d/t acute infection and volume status; consider discontinuing - PT/OT consulted, rec continuing acute rehab w/ goal of discharge home. Daughter has been staying/acting as caregiver but will not be able to continue; requests we move forward w rehab placement. Plan to have clearer discussion with pt and family about safe discharge planning and long-term goals. - Fall precautions #FTT - Family reports 11 lb weight loss; chart shows 39.4kg today vs 48.8 on 06/14/2024 - On admission, appeared clinically hypovolemic 2/2 chronic poor PO intake + diuretic use. Improved after 1L NSS bolus in ED and 1L maintenance NSS overnight. - CXR showed pulmonary nodules. CT chest and CT A/P reassuring for any underlying malignancy - Given presentation & collateral hx, primary ddx is currently depression. Started 7.5mg mirtazepine qHS on 08/07 #Dysphagia - Pt reports difficulty swallowing certain foods. H/o swallow studies showing esophageal dysmotility, & EGD showing reflux esophagitis, which resolved w PPI, but no explanation for impaired swallow. - Diet consult placed - [employer] COMM[employer] SERVICE OFFICER consult placed - Continue daily multivitamin - Continue vit d supplement #Urinary sx - Reports urinary symptoms for several weeks. Daughter corroborates dysuria, increased frequency & urgency, and foul-smelling urine for weeks (since discharge after hip fx). - Has failed outpatient treatment of Macrobid and fluconazole (x 6d). IV abx recommended by PCP. - UA: bloody appearance, 2+ protein, trace glucose, trace ketones, 2+ blood, 3+ leukocyte esterase, 6-10 RBC, >50 WBC, yeast present, no bacteria - Ucx previously grew Cynthia glabrata (no sensitivities) and pansensitive E. coli. Cultures obtained 08/06 show no growth - No s/sx of chronic, refractory UTI - no leukocytosis, AF, VSS. Given 1x IV fluconazole on admission for yeast coverage. Given 1 dose IV Rocephin. Antimicrobials discontinued due to low suspicion for ongoing infection. Sx may be result of incontinence mixed w dehydration/urine concentration - Rec outpatient urology f/u to evaluate likely urge incontinence #Pulmonary nodules - Denies h/o tobacco use - CXR on 08/06 showed: nodular shadows measuring up to 7 mm at R middle and L lower lung; prominent bilateral hilar shadows L > R; rounded opaque shadow at the R axilla possibly suggestive of pathological lymph node New findings compared w single-view CXR on 06/14/24 - CT chest on 08/07 reassuring w/ no suspicious pulmonary nodule seen; did note calcified pulmonary granuloma, seen previously, could account for the CXR findings Chronic stable conditions: HTN - continue losartan and metoprolol CAD - s/p CABG, continue ASA T2DM - diet controlled; most recent A1c on 07/18/2024 was 6.4% GERD/hx of gastric bypass - continue pantoprazole and famotidine Chronic lower extremity edema - holding Lasix as above, consider discontinuing; teds ordered VTE ppx: cont Eliquis and TEDs Diet: T2DM, HH Dispo: med surg Admission and Anticipated Discharge Date Admission Date: August 06, 2024 Supervising Physician Co-Signing Physician Notes I personally examined the patient and verified all escalante points of history and exam, discussed case, and agree with decision making with Dr Solitario continues to do fairly well eating lunch at the time i see her. vitals noted nad frail and thin appearing but acutely nad heent nc at mmm breathing unlabored no accessory muscles good effort skin no rashes no pallor or icterus failure to thrive -broad ddx - but general malaise/deconditioning from hip fx and/or geriatric depression appearing to be the biggest culprits -08/08 extensive discussion on nutrition/calorie goals/how to meet goals -discussed lifestyle management (getting out to be more social again - seeing family/going out to eat/etc) -mirtazapine, follow -PO intake has been better last 2 days osteoporosis -on reclast - may benefit from forteo/prolia persistent dysuria -doubt infectious -persistent hematuria - should have urology eval and consider cysto - but this would best be done as outpt -?overactive bladder/urge incontinence pathophysiology (but d/w pt and dtr would hesitate to start meds at this time due to side effect risks potentially adversely impacting failure to thrive) -?dehydration/concentrated urine (follow as her PO intake improves - if sx improve then this could be possible cause) dispo -a little bit difficult - by PT/OT assessments she'd probably benefit from SNF/rehab but not dramatically weak; pt would prefer to go home. dtr d/w dr solitario and case management and dtr may not be able to be true support person at this time. home with support seems quite reasonable, home completely independent more concerning; at the same time pt herself does have capacity so ultimately she'll have the final say on things. encouraged her to d/w dtr today and let us know plans moving forward. Subjective Fairly lucid today, says she is doing "okay," able to eat, still getting out of bed to the bathroom w/o issue. Denies any pain, SOB, n/v, dizziness. Reports continue dysuria. Review of Systems 2 Review of Systems: As per HPI. Physical Exam 2 Physical Exam: Gen: Frail, appears tired, NAD HEENT: NCAT, MMM CV: RRR, +murmur, no LE edema Resp: CTAB, symmetrical chest rise, breathing non-labored Abd: Soft, NT/ND, +BS Skin: Warm, dry, well-perfused, some ecchymoses on arms Neuro: AOx3, CN II-XII grossly intact Psych: Mood-affect congruent. Appears tired but answers questions appropriately. Results & Data Results & Data Vital Signs (Past 12 Hours) Vital Signs Temp Pulse Resp BP Pulse Ox O2 Del Method 08/10/24 07:07 36.4 C L 75 15 119/71 99 Room Air Laboratory Results 08/10/24 06:21 08/10/24 06:21
--- NOTE | 2024-08-10 13:17 | Billing Data ---
Date of Service August 10, 2024 Coding Level of Care Code 97912 SUB INP/OBS CARE
--- NOTE | 2024-08-10 16:02 | Discharge Summary ---
Date of Service August 10, 2024 Admission HPI Per Admitting Provider Patient is a 79-year-old female with past medical history of HTN, esophageal dysphagia, lower extremity edema, type II DM, CAD, recent hip fracture 2/2 fall s/p inpatient rehab. She presented to the ED with her family due to several weeks of urinary symptoms and weakness. Patient is being admitted for UTI requiring IV antibiotics and to have PT/OT evals. Patient was admitted to the hospital 06/14 after a fall that resulted in a hip fracture s/p ORIF. She still on Eliquis for DVT prophylaxis was started on vitamin D and B12 supplements at this time. Patient was discharged to [facility] and then resided at [facility] from 07/03 to 07/14. She now lives at home under 24/7 supervision of her daughter and son-in-law. Patient seen at bedside with her daughter and son-in-law present. She stated that for the past several weeks she has had burning with urination, increasing urinary urgency, and increase in urinary frequency. She underwent treatment with Macrobid and fluconazole which did not seem to help her symptoms. Previous cultures grew pansensitive E. coli and Cynthia glabrata. She also stated her urine is dark in color and foul-smelling. She stated the weakness started shortly after she left [facility]. She Stated she has been using a walker to get around and has had difficulty with ambulation due to the weakness. She also endorses decrease in p.o. intake due to a poor appetite. Her family noted that she lost 11 pounds over the past month. She does endorse chills and lower abdominal pain due to to the UTI. She stated her doctor recently stopped her Jardiance and she is just been controlling her diabetes with diet however family reports that her levels have been elevated. Patient denies fever dizziness, lightheadedness, dyspnea, chest pain, nausea, vomiting, hematuria. She took her morning medications but is due for her evening medications, will order on admission. She wishes to be full code. She is agreeable to PT/OT evals. Spoke with pharmacy staff regarding antifungal treatment. As patient failed outpatient fluconazole x 6 days concern for fluconazole resistant Cynthia UTI. Up-to-date recommends amphotericin B however to start with ID consult. Their antifungal options including voriconazole, do not achieve adequate concentrations in urine for treating infection. Will treat with IV fluconazole x 1 tonight. Admission Exam Per Admitting Provider The patient is awake, alert and oriented 3, frail. HEENT- EOMI, mucous membranes dry. Hearing grossly intact. Heart-normal S1 and S2. No murmurs, rubs or gallops. Lungs-clear bilaterally, no respiratory distress, no accessory muscle use. Abdomen-normal bowel sounds and soft. No ascites noted. Non-tender. Extremities- no clubbing, cyanosis, or edema. Rheumatologic-normal range of motion. Psychiatric-normal affect. Principal Diagnosis FTT, ambulatory dysfunction Discharge Exam Gen: Frail, appears tired, NAD HEENT: NCAT, MMM CV: RRR, +murmur, no LE edema Resp: CTAB, symmetrical chest rise, breathing non-labored Abd: Soft, NT/ND, +BS Skin: Warm, dry, well-perfused, some ecchymoses on arms Neuro: AOx3, CN II-XII grossly intact Psych: Mood-affect congruent. Answers questions appropriately. Discharge Data Allergies Allergy/AdvReac Type Severity Reaction Status Date / Time alendronate sodium AdvReac Intermediate SEVERE Verified 08/06/24 19:08 HEADACHE risedronate sodium AdvReac Intermediate SEVERE Verified 08/06/24 19:08 HEADACHE metformin AdvReac Mild DIARRHEA Verified 08/06/24 19:08 Consultations 08/06/24 19:45 ED Decision to Admit Stat Ordered Studies 08/10/24 06:21 08/10/24 06:21 08/06/24 17:59 CT head/brain wo con Stat FINDINGS: Candelario-white differentiation is relatively preserved. No mass, mass effect or midline shift. Mild chronic ischemic white matter changes. Mild frontal cortical atrophy. Basal ganglia calcifications noted. No evidence of acute large territorial infarction or acute intracranial hemorrhage. Ventricles appear normal in size. Basal cisterns are patent. No depressed calvarial fracture. IMPRESSION: No acute intracranial process. 08/07/24 14:28 CT chest diagnostic wo con Routine 1. Findings prior granulomatous disease with calcified pulmonary granuloma account for the prior chest x-ray findings. 2. No suspicious pulmonary nodule seen. No pneumonia or pleural effusion. 3. Otherwise as described. 08/08/24 11:18 CT abd pelvis oral and IV con Routine 1. Suboptimal assessment of the bladder with signs of cystitis and mild prolapse. 2. Postoperative changes of the stomach with small hiatal hernia. There is heterogeneous contrast filling of the hernia sac which could reflect redundant mucosa. Mass not excluded. Hospital Course (1) Acute UTI (urinary tract infection): (2) Generalized weakness: (3) Ambulatory dysfunction: (4) Malnutrition: (5) Diabetes mellitus, type 2: (6) Abnormal LFTs (liver function tests): (7) Pulmonary nodule: Plan Patient is a 79-year-old female with past medical history of HTN, esophageal dysphagia, lower extremity edema, type II DM, CAD, recent hip fracture 2/2 fall s/p inpatient rehab. She presented to the ED with her family due to several weeks of urinary symptoms and weakness. She was admitted for UTI requiring IV antibiotics and to have PT/OT evals. #Weakness/Ambulatory dysfunction - Likely multifactorial including current UTI, recent hip fracture, and chronic malnutrition/FTT - Does report h/o falls. Denies head trauma; head CT negative - Recent hip fracture, reduction on 06/14, required inpatient rehab; Continue lidocaine patch as needed - On lasix for LE swelling. Was held d/t concern for acute infection and volume status; consider discontinuing once discharged - PT/OT were consulted, recommended continuing acute rehab during admission w/ goal of discharge home. - Fall precautions #FTT - Family reports 11 lb weight loss; chart shows 39.4kg today vs 48.8 on 06/14/2024 - On admission, appeared clinically hypovolemic 2/2 chronic poor PO intake + diuretic use. Improved after 1L NSS bolus in ED and 1L maintenance NSS overnight. - CXR showed pulmonary nodules. CT chest and CT A/P reassuring for any underlying malignancy - Given presentation & collateral hx, primary ddx is currently depression. Started 7.5mg mirtazepine qHS (half of a 15mg tab) on 08/07; will continue after discharge. Also discussed lifestyle changes with patient and family, witch specific suggestions such as visiting sister on a certain day, going out to dinner together, etc. #Dysphagia - Pt reports difficulty swallowing certain foods. H/o swallow studies showing esophageal dysmotility, & EGD showing reflux esophagitis, which resolved w PPI, but no explanation for impaired swallow. - Diet and AIRCRAFT INSTRUMENT ENGINEER were consulted, diet plan and suggestions for meeting calorie goals were discussed with patient and daughter. Rec 30-35 kcal/kg so daily 1200- 1400 kcal - Continue daily multivitamin & vit d supplement #Urinary sx - Reports urinary symptoms for several weeks. Daughter corroborates dysuria, increased frequency & urgency, and foul-smelling urine for weeks (since discharge after hip fx). - Has failed outpatient treatment of Macrobid and fluconazole (x 6d). IV abx recommended by PCP. - UA: bloody appearance, 2+ protein, trace glucose, trace ketones, 2+ blood, 3+ leukocyte esterase, 6-10 RBC, >50 WBC, yeast present, no bacteria - Ucx previously grew Cynthia glabrata (no sensitivities) and pansensitive E. coli. Cultures obtained 08/06 show no growth - No s/sx of chronic, refractory UTI - no leukocytosis, AF, VSS. Given 1x IV fluconazole on admission for yeast coverage. Given 1 dose IV Rocephin. Antimicrobials discontinued due to low suspicion for ongoing infection. Sx may be result of incontinence mixed w dehydration/urine concentration - Rec outpatient urology f/u to evaluate likely urge incontinence #Pulmonary nodules - Denies h/o tobacco use - CXR on 08/06 showed: nodular shadows measuring up to 7 mm at R middle and L lower lung; prominent bilateral hilar shadows L > R; rounded opaque shadow at the R axilla possibly suggestive of pathological lymph node New findings compared w single-view CXR on 06/14/24 - CT chest on 08/07 reassuring w/ no suspicious pulmonary nodule seen; did note calcified pulmonary granuloma, seen previously, could account for the CXR findings Chronic stable conditions: HTN - continue losartan and metoprolol CAD - s/p CABG, continue ASA T2DM - diet controlled; most recent A1c on 07/18/2024 was 6.4% GERD/hx of gastric bypass - continue pantoprazole and famotidine Chronic lower extremity edema - holding Lasix as above, consider discontinuing; teds ordered Total Time Total Time Spent Total Time Spent (In Minutes): See attending documentation Discharge Plan Discharge Items Patient Disposition: Home - Self-Care Reason For Visit: UTI, AMBULATORY DYSFUNCTION Discharge Diagnosis: Failure to thrive, ambulatory dysfunction Activity: Per Instructions section Non-emergency contact: Primary Care Provider and Urologist Call non-emergency contact if: your symptoms worsen, your pain is not controlled and you have a fever Follow-up/Referrals: Caden Ceja MD [Primary Care Provider] - (PT WILL MAKE HER OWN HOSPITAL FOLLOW UP WITH PCP IN 7-10 DAYS ) Diet: Regular Diet Texture: Easy to Chew Addtl Attending Provider Instructions: You were admitted to the hospital for management of suspected UTI and generalized weakness. You were given one dose of an antifungal and of an antibiotic; however, your condition was not consistent with a chronic, refractory UTI - your white blood cells were at normal levels, you were afebrile throughout your stay, your urine cultures grew nothing - so IV antimicrobials were discontinued. We recommend seeing urology after you are discharged from the hospital, for workup of potential urge incontinence. You were also seen by PT and nutrition during your stay for your ongoing poor appetite, weight loss, and weakness. PT felt you were safe to return home. Calorie goals and a general diet plan were discussed at length. You should aim for 1100 calories per day, keeping in mind that the amount of calories is more important than the quality (i.e. meeting the daily goal with ice cream is better than having lean protein and salad that does not add up to enough). Adding some nutritional shakes like Boost to your usual diet may help you meet this goal. We also discussed how depression may play a role in your recent lack of appetite and energy. You were started on a new medication for this, which you will continue to take after discharge. Additionally, you can treat this condition best with lifestyle changes such as forcing yourself to socialize or leave the house, interacting with your loved ones, joining them for activities. Improving your symptoms with the behavioral changes plus medication should also improve your appetite and build your strength. Medications: We sent a prescription for mirtazapine to your [facility] pharmacy in [place]. Take 7.5mg (half a tablet) every night. No major changes were made to your existing medications. An updated list is included with your discharge paperwork; please review this list closely. Follow-up appointments: Make a follow-up appointment with your PCP within the next week. It is very important that you follow up with them shortly after discharge from the hospital. Make an appointment with urology to further look into the urinary symptoms you have had for weeks, which we do not feel are primary care sales representative of UTI. Keep all your follow-up appointments as already scheduled. If you cannot make an appointment, notify your provider. Contact your PCP if your symptoms return or worsen. Call 911 or go to the ER if you experience any of the following: Sudden, severe abdominal pain or nausea/vomiting Severe chest pain, or chest pain that radiates (moves) to your jaw or arm Sudden, severe shortness of breath or difficulty breathing Thank you for allowing us to participate in your care. Pending Studies at Discharge: No Stand-Alone Forms: [facility], Smoking Cessation Medications and DC Order Prescriptions: New mirtazapine 15 mg Tablet 7.5 mg PO HS 30 Days Qty: 15 0RF Continued aspirin [Adult Low Dose Aspirin] 81 mg tablet,delayed release (DR/EC) 81 mg PO QPM multivitamin with minerals Tablet 1 tab PO QAM zoledronic redd-poytzvwh-rbkrh [Reclast] 5 mg/100 mL piggyback See Rx Instructions IV ONCE Qty: 100 0RF Rx Instructions: 5 mg intravenously once; empagliflozin 25 mg tablet 25 mg PO QAM Qty: 90 3RF Hold Instructions: Provider's Order - hold until discussed with PCP given UTI hx to prevent recurrance metoprolol succinate 25 mg tablet extended release 24 hr 25 mg PO QAM Qty: 30 11RF Hold Instructions: Orthostatic symptoms nitroglycerin [Nitrostat] 0.4 mg tablet, sublingual 0.4 mg sublingual UD PRN (Reason: chest pain) Qty: 25 0RF Hold Instructions: Patient states this was prescribed for prior to her surgery losartan 25 mg tablet 25 mg PO DAILY Qty: 90 3RF Hold Instructions: hypotensive rosuvastatin 20 mg tablet 20 mg PO QAM Qty: 90 3RF ondansetron HCl 4 mg tablet 4 mg PO Q8H PRN (Reason: nausea and vomiting) Qty: 90 11RF furosemide 20 mg tablet 20 mg PO DAILY Qty: 30 5RF famotidine 20 mg tablet 20 mg PO BID Qty: 60 11RF acetaminophen 325 mg tablet 650 mg PO Q6H PRN (Reason: fever or pain) Patient Comments: CONFIRMED W/ PT AND ON CC DC MEDS LIST 3/4 lidocaine 4 % adhesive patch,medicated 1 patch topical DAILY Patient Comments: CONFIRMED W/ PT AND ON CC DC MEDS LIST 3/4 pantoprazole 40 mg tablet,delayed release (DR/EC) 40 mg PO DAILY Patient Comments: CONFIRMED W/ PT AND ON CC DC MEDS LIST 3/4 oxycodone 5 mg tablet 5 mg PO Q6H PRN (Reason: pain) Patient Comments: CONFIRMED W/ PT AND ON CC DC MEDS LIST 3/4 cyclobenzaprine 5 mg tablet 5 mg PO TID PRN (Reason: Muscle Spasm) Patient Comments: CONFIRMED W/ PT AND ON CC DC MEDS LIST 3/4 (DME) OneTouch Ultra Test Strip See Rx Instructions .Route Qty: 100 3RF Rx Instructions: Test 4x daily potassium chloride 20 mEq tablet extended release 20 meq PO DAILY Qty: 30 5RF cyanocobalamin (vitamin B-12) 500 mcg Tablet 500 mcg PO QAM Qty: 30 0RF cholecalciferol (vitamin D3) 125 mcg (5,000 unit) Tablet 125 mcg PO QAM Qty: 30 0RF Eliquis 2.5 mg tablet 2.5 mg PO BID Discharge Orders: Discharge Order (Routine); Ordered 08/10/24 Ordered By: Adolfo Solitario Admission Data Admit Date/Time: 08/06/24 21:07 Attending Provider: Misael Lynne Admit Provider: Keanu Waller Primary Care Provider: Caden Ceja Other Providers: Keanu Waller; [facility] Other Interventions: Discharge Summary Assessment (RN) Last Done: 08/10/24 14:41 Resident Activity Tracking Resident Involvement: Resident Care Provided Care Provided: Adult Hospital Medicine
--- NOTE | 2024-08-15 09:11 | Coding Query ---
To promote full compliance with coding requirements relating to patient care, provider participation is requested in all cases of case management specialist uncertainty. Please assist us with the question(s) below: Coding Question(s): The diagnosis(es) below was documented in the (c H&P, progress notes, etc.) then subsequently fell off all further documentation. Please indicate if it is still a possible diagnosis or ruled out. Physician's Response(s): UTI ( ) Diagnosed and POA ( ) Diagnosed and not POA ( x ) Ruled out ( ) Other (please specify) see notes - we tried to clarify that she's got persistent dysuria but does not appear infectious. thanks! BARI
== END 2024-08-10 14:52 | disposition home or self-care (01) ==
LOC: ED 17:07 → 3W 21:07 → INTOOBSV 21:07 → SUATTDRO 21:07 → 3W 22:11